=== PATIENT | female | born 1985 | race Caucasian/White ===

== ENCOUNTER 2017-06-12 09:29 | Emergency (ER) | payer OTHER ==
[2017-06-12] MEDS ORDERED: SODIUM CHLORIDE 0.9% 1,000 ML IV STA ×2 (10:03)
[2017-06-12] MEDS ORDERED: KETOROLAC 30 MG/ML 1 ML VIAL IVP STA (10:03)
[2017-06-12] MEDS ORDERED: ONDANSETRON 4 MG/2 ML VIAL IVP STA (10:03)
[2017-06-12 10:17] LABS: Basophils # (A) 0.1 k/uL (0-0.2); Basophils % (A) 0 %; Eosinophils # (A) 0.3 k/uL (0-0.7); Eosinophils % (A) 2 %; HCT 45.4 % (34.0-46.0); HGB 14.5 gm/dL (11.4-16.0); Lymphocytes # (A) 1.8 k/uL (1.0-4.8); Lymphocytes % (A) 12 %; MCH 30.2 pg (25.0-35.0); MCHC 31.9 g/dL (31.0-37.0); MCV 94.7 fL (80.0-100.0); Mean Platelet Volume 7.1; Monocytes # (A) 0.7 k/uL (0-1.0); Monocytes % (A) 5 %; Neutrophils # (A) 11.6 k/uL (1.3-7.7); Neutrophils % (A) 79 %; Platelet Count 312 k/uL (150-450); RDW 14.2 % (11.5-15.5); WBC 14.6 k/uL (3.8-10.6)
[2017-06-12 10:27] LABS: ALT 47 U/L (9-52); AST 20 U/L (14-36); Albumin 3.9 g/dL (3.5-5.0); Alkaline Phosphatase 77 U/L (38-126); Amylase 32 U/L (30-110); Anion Gap 9 mmol/L; Blood Urea Nitrogen 9 mg/dL (7-17); Calcium 9.5 mg/dL (8.4-10.2); Carbon Dioxide 23 mmol/L (22-30); Chloride 104 mmol/L (98-107); Glucose 99 mg/dL (74-99); Lipase 35 U/L (23-300); Potassium 3.8 mmol/L (3.5-5.1); Sodium 136 mmol/L (137-145); Total Bilirubin 1.1 mg/dL (0.2-1.3); Total Protein 6.8 g/dL (6.3-8.2)
[2017-06-12 10:35] LABS: Appearance,Urine Cloudy (Clear); Bacteria,Urine Rare /hpf; Bilirubin,Urine Negative (Negative); Blood,Urine Trace (Negative); Color,Urine Yellow; Glucose,Urine (UA) Negative (Negative); Ketones,Urine Trace (Negative); Leukocyte Esterase,Urine Moderate (Negative); Mucus,Urine Many /hpf; Nitrite,Urine Negative (Negative); Protein,Urine Trace (Negative); RBC,Urine 10 /hpf (0-5); Specific Gravity,Urine 1.019 (1.001-1.035); Squamous Epithelial Cell,Urine 17 /hpf (0-4); Urobilinogen,Urine <2.0 mg/dL (<2.0); WBC,Urine 11 /hpf (0-5)
--- NOTE | 2017-06-12 11:39 | XR ---
EXAMINATION TYPE: XR KUB DATE OF EXAM: 06/12/2017 COMPARISON: NONE HISTORY: Abdominal pain TECHNIQUE: 2 views FINDINGS: Bowel gas pattern is normal. There is no sign of intestinal obstruction or pneumoperitoneum . Fecal pattern is normal. There are clips from cholecystectomy. Lung bases are clear. There is IUD n oted. There no pathologic calcifications over the kidneys. IMPRESSION: Nonacute abdomen.
--- NOTE | 2017-06-12 12:52 | ED ---
Abdominal Pain HPI - General Chief Complaint: Abdominal Pain Stated Complaint: Pelvis/hip/back pain Time Seen by Provider: 06/12/17 09:49 Source: patient, RN notes reviewed, old records reviewed Mode of arrival: wheelchair Limitations: no limitations - History of Present Illness Initial Comments: This is a 32 year old female with 3 days of dysuria, pelvic pressure when urinating and having a bowel movement. She has an IUD, reports it is concerned that it could have moved. She denies any fever or chills. She reports that the pain is lower and radiates to lower back. Patient reports pain is worse with movement. She denies any abnormal vaginal discharge. She has history of PCOS. She states that she has had no vomiting, chest pain shortness of breath, vomiting. - Related Data Home Medications Medication Instructions Recorded Confirmed Ibuprofen [Motrin] 400 - 800 mg PO Q6HR PRN 06/12/17 06/12/17 Previous Rx's Medication Instructions Recorded Ciprofloxacin HCl [Cipro] 500 mg PO Q12HR 7 Days tab 06/12/17 Phenazopyridine [Pyridium] 100 mg PO TID #9 tablet 06/12/17 Allergies Allergy/AdvReac Type Severity Reaction Status Date / Time latex Allergy Rash/Hives Verified 06/12/17 09:56 sumatriptan succinate Allergy Anaphylaxis Verified 06/12/17 09:56 [From Imitrex] Review of Systems ROS Statement: Those systems with pertinent positive or pertinent negative responses have been documented in the HPI. ROS Other: All systems not noted in ROS Statement are negative. Past Medical History Past Medical History: Fibromyalgia, Osteoarthritis (OA), Thyroid Disorder Additional Past Medical History / Comment(s): MIGRAINE, pitted thyroid; Degenerative disc disease; ruptured disc, PCOS History of Any Multi-Drug Resistant Organisms: MRSA Date of last positivie culture/infection: 2012 MDRO Source:: LEFT BUTTOCK Past Surgical History: Appendectomy, Cholecystectomy Additional Past Surgical History / Comment(s): ankle-replace tendon when 14 yo. PAIN CLINIC PROCEDURES Past Anesthesia/Blood Transfusion Reactions: No Reported Reaction Past Psychological History: Anxiety, Bipolar, Depression Smoking Status: Current every day smoker Past Alcohol Use History: None Reported Past Drug Use History: None Reported General Exam - General Exam Comments Initial Comments: This is a 32 year old female, no distress. Limitations: no limitations General appearance: alert, in no apparent distress Head exam: Present: atraumatic, normocephalic, normal inspection Eye exam: Present: normal appearance, PERRL, EOMI. Absent: scleral icterus, conjunctival injection, periorbital swelling ENT exam: Present: normal exam, mucous membranes moist Neck exam: Present: normal inspection. Absent: tenderness, meningismus, lymphadenopathy Respiratory exam: Present: normal lung sounds bilaterally. Absent: respiratory distress, wheezes, rales, rhonchi, stridor Cardiovascular Exam: Present: regular rate, normal rhythm, normal heart sounds. Absent: systolic murmur, diastolic murmur, rubs, gallop, clicks GI/Abdominal exam: Present: soft, tenderness (suprapubic tenderness. ), normal bowel sounds. Absent: distended, guarding, rebound, rigid External exam: Present: normal external exam Speculum exam: Present: normal speculum exam, vaginal discharge (minimal white vaginal discharge. ), other (IUD strings in place. ). Absent: erythema Extremities exam: Present: normal inspection, full ROM, normal capillary refill. Absent: tenderness, pedal edema, joint swelling, calf tenderness Back exam: Present: normal inspection Neurological exam: Present: alert, oriented X3, CN II-XII intact Psychiatric exam: Present: normal affect, normal mood Skin exam: Present: warm, dry, intact, normal color. Absent: rash Course Vital Signs 06/12/17 06/12/17 06/12/17 09:32 12:38 13:00 Temperature 97.6 F 98.6 F Pulse Rate 101 H 77 80 Respiratory 20 16 20 Rate Blood Pressure 156/92 149/82 138/78 O2 Sat by Pulse 96 99 98 Oximetry Medical Decision Making - Medical Decision Making This is a 32 year old female with 3 days of dysuria, pelvic pressure when urinating and having a bowel movement. She has an IUD, reports it is concerned that it could have moved. She denies any fever or chills. She reports that the pain is lower and radiates to lower back. Patient lab work was reiveied, warrentent has elevated WBC. Urinalysis is postive for infection with WBC, RBC, leukocyte esterase. Patient Pelvic shows minimal white vaginal discharge, culture obtained. No cervical motion tenderness. Patient KUB shows normal bowel [place] pattern. IUD within normal placement. STrings identified. Patient will be started on ciprofloxacin. Discussed follow up with PCP and repeat labs.Discussed also starting pyridium for pain. Patient agrees to treatment plan and will comply. Return parameters discussed. - Lab Data Result diagrams: 06/12/17 10:00 06/12/17 10:00 Lab Results 06/12/17 06/12/17 06/12/17 Range/Units 10:00 10:00 10:00 WBC 14.6 H (3.8-10.6) k/uL RBC 4.80 (3.80-5.40) m/uL Hgb 14.5 (11.4-16.0) gm/dL Hct 45.4 (34.0-46.0) % MCV 94.7 (80.0-100.0) fL MCH 30.2 (25.0-35.0) pg MCHC 31.9 (31.0-37.0) g/dL RDW 14.2 (11.5-15.5) % Plt Count 312 (150-450) k/uL Neutrophils % 79 % Lymphocytes % 12 % Monocytes % 5 % Eosinophils % 2 % Basophils % 0 % Neutrophils # 11.6 H (1.3-7.7) k/uL Lymphocytes # 1.8 (1.0-4.8) k/uL Monocytes # 0.7 (0-1.0) k/uL Eosinophils # 0.3 (0-0.7) k/uL Basophils # 0.1 (0-0.2) k/uL Sodium 136 L (137-145) mmol/L Potassium 3.8 (3.5-5.1) mmol/L Chloride 104 (98-107) mmol/L Carbon Dioxide 23 (22-30) mmol/L Anion Gap 9 mmol/L BUN 9 (7-17) mg/dL Creatinine 0.70 (0.52-1.04) mg/dL Est GFR (MDRD) Af Amer >60 (>60 ml/min/1.73 sqM) Est GFR (MDRD) Non-Af >60 (>60 ml/min/1.73 sqM) Glucose 99 (74-99) mg/dL Calcium 9.5 (8.4-10.2) mg/dL Total Bilirubin 1.1 (0.2-1.3) mg/dL AST 20 (14-36) U/L ALT 47 (9-52) U/L Alkaline Phosphatase 77 (38-126) U/L Total Protein 6.8 (6.3-8.2) g/dL Albumin 3.9 (3.5-5.0) g/dL Amylase 32 (30-110) U/L Lipase 35 (23-300) U/L Urine Color Yellow Urine Appearance Cloudy H (Clear) Urine pH 6.0 (5.0-8.0) Ur Specific [place] 1.019 (1.001-1.035) Urine Protein Trace H (Negative) Urine Glucose (UA) Negative (Negative) Urine Ketones Trace H (Negative) Urine Blood Trace H (Negative) Urine Nitrite Negative (Negative) Urine Bilirubin Negative (Negative) Urine Urobilinogen <2.0 (<2.0) mg/dL Ur Leukocyte Esterase Moderate H (Negative) Urine RBC 10 H (0-5) /hpf Urine WBC 11 H (0-5) /hpf Ur Squamous Epith Cells 17 H (0-4) /hpf Urine Bacteria Rare H (None) /hpf Urine Mucus Many H (None) /hpf Urine HCG, Qual (Not Detectd) Trichomonas Ag (Rapid) (Negative) 06/12/17 06/12/17 Range/Units 10:00 13:00 WBC (3.8-10.6) k/uL RBC (3.80-5.40) m/uL Hgb (11.4-16.0) gm/dL Hct (34.0-46.0) % MCV (80.0-100.0) fL MCH (25.0-35.0) pg MCHC (31.0-37.0) g/dL RDW (11.5-15.5) % Plt Count (150-450) k/uL Neutrophils % % Lymphocytes % % Monocytes % % Eosinophils % % Basophils % % Neutrophils # (1.3-7.7) k/uL Lymphocytes # (1.0-4.8) k/uL Monocytes # (0-1.0) k/uL Eosinophils # (0-0.7) k/uL Basophils # (0-0.2) k/uL Sodium (137-145) mmol/L Potassium (3.5-5.1) mmol/L Chloride (98-107) mmol/L Carbon Dioxide (22-30) mmol/L Anion Gap mmol/L BUN (7-17) mg/dL Creatinine (0.52-1.04) mg/dL Est GFR (MDRD) Af Amer (>60 ml/min/1.73 sqM) Est GFR (MDRD) Non-Af (>60 ml/min/1.73 sqM) Glucose (74-99) mg/dL Calcium (8.4-10.2) mg/dL Total Bilirubin (0.2-1.3) mg/dL AST (14-36) U/L ALT (9-52) U/L Alkaline Phosphatase (38-126) U/L Total Protein (6.3-8.2) g/dL Albumin (3.5-5.0) g/dL Amylase (30-110) U/L Lipase (23-300) U/L Urine Color Urine Appearance (Clear) Urine pH (5.0-8.0) Ur Specific [place] (1.001-1.035) Urine Protein (Negative) Urine Glucose (UA) (Negative) Urine Ketones (Negative) Urine Blood (Negative) Urine Nitrite (Negative) Urine Bilirubin (Negative) Urine Urobilinogen (<2.0) mg/dL Ur Leukocyte Esterase (Negative) Urine RBC (0-5) /hpf Urine WBC (0-5) /hpf Ur Squamous Epith Cells (0-4) /hpf Urine Bacteria (None) /hpf Urine Mucus (None) /hpf Urine HCG, Qual Not Detected (Not Detectd) Trichomonas Ag (Rapid) Negative (Negative) Disposition Clinical Impression: UTI (urinary tract infection) Disposition: HOME SELF-CARE Condition: Good Instructions: Urinary Tract Infection in Women (ED) Additional Instructions: S rest, increase fluids. Take the Pyridium and antibiotic as prescribed. Follow-up with your primary care provider. Return to the emergency department if any alarming signs or symptoms occur. Prescriptions: Ciprofloxacin HCl [Cipro] 500 mg PO Q12HR 7 Days tab Phenazopyridine [Pyridium] 100 mg PO TID #9 tablet Referrals: Sen Harrell MD [Primary Care Provider] - 1-2 days Time of Disposition: 12:50
[2017-06-12 13:11] VITALS: BP 138/78; PULSE 80; RESP 20; TEMP 98.6
[2017-06-15 13:47] LABS: Chlamydia trachomatis rRNA Not detected (Not detected); Neisseria gonorrhoeae rRNA Not detected (Not detected)
== END 2017-06-12 13:00 | disposition home or self-care (01) ==
LOC: EC 09:29
DX: N39.0 Urinary tract infection, site not specified (principal); F17.200 Nicotine dependence, unspecified, uncomplicated; Z97.5 Presence of (intrauterine) contraceptive device; Z90.49 Acquired absence of other specified parts of digestive tract; Z86.14 Personal history of Methicillin resistant Staphylococcus aureus infection; Z87.42 Personal history of other diseases of the female genital tract
CPT/HCPCS: 99284 ×2; 96374 ×2; 96375 ×2; 96361 ×4; 36415; 80053; 87591; 87491; 82150; 83690; 85025; 81001; 81025; 87808; 87070; 87086; 74000; J2405; J1885; 87205

== ENCOUNTER 2017-12-31 17:44 | Emergency (ER) | payer OTHER ==
[2017-12-31 17:58] VITALS: TEMP 98.5
[2017-12-31] MEDS ORDERED: LORazepam 2 MG/ML INJ IV STA (18:12)
[2017-12-31 18:57] LABS: Basophils # (A) 0.1 k/uL (0-0.2); Basophils % (A) 1 %; Eosinophils # (A) 0.4 k/uL (0-0.7); Eosinophils % (A) 4 %; HCT 43.5 % (34.0-46.0); HGB 14.7 gm/dL (11.4-16.0); Lymphocytes # (A) 2.9 k/uL (1.0-4.8); Lymphocytes % (A) 31 %; MCH 29.4 pg (25.0-35.0); MCHC 33.9 g/dL (31.0-37.0); MCV 86.8 fL (80.0-100.0); Mean Platelet Volume 6.9; Monocytes # (A) 0.6 k/uL (0-1.0); Monocytes % (A) 6 %; Neutrophils # (A) 5.1 k/uL (1.3-7.7); Neutrophils % (A) 56 %; Platelet Count 315 k/uL (150-450); RBC 5.01 m/uL (3.80-5.40); RDW 13.4 % (11.5-15.5); WBC 9.2 k/uL (3.8-10.6)
[2017-12-31 19:06] LABS: ALT 37 U/L (9-52); AST 44 U/L (14-36); Albumin 4.3 g/dL (3.5-5.0); Alkaline Phosphatase 61 U/L (38-126); Anion Gap 9 mmol/L; Blood Urea Nitrogen 10 mg/dL (7-17); Calcium 9.5 mg/dL (8.4-10.2); Carbon Dioxide 21 mmol/L (22-30); Chloride 107 mmol/L (98-107); Glucose 82 mg/dL (74-99); Potassium 3.6 mmol/L (3.5-5.1); Sodium 137 mmol/L (137-145); Total Bilirubin 0.6 mg/dL (0.2-1.3); Total Protein 6.8 g/dL (6.3-8.2)
--- NOTE | 2017-12-31 19:08 | ED ---
General Adult HPI - General Chief complaint: Recheck/Abnormal Lab/Rx Stated complaint: withdrawals Time Seen by Provider: 12/31/17 17:59 Source: patient Mode of arrival: ambulatory Limitations: no limitations - History of Present Illness Initial comments: 32-year-old female patient presents the emergency department today with chief complaint of withdrawal from methamphetamines. Patient reports that she has been using meth multiple times daily for the last several months. Patient states she has not used since around 5:00 this morning. States that she is having which symptoms. States that her vision is double, she is having chest pressure and shortness of breath, and feels very antsy. Patient is quite anxious during history and physical. Patient states she has uses marijuana but denies any alcohol or other drug use. The patient is requesting assistance with withdrawal symptoms. Patient denies any recent rash, fever, chills, abdominal pain, nausea, vomiting, diarrhea, constipation, back pain, numbness, tingling, dizziness, weakness, hematuria, dysuria, urinary urgency, urinary frequency, headache, or any other complaints. - Related Data Home Medications Medication Instructions Recorded Confirmed Ibuprofen [Motrin] 400 - 800 mg PO Q6HR PRN 06/12/17 06/12/17 Previous Rx's Medication Instructions Recorded Ciprofloxacin HCl [Cipro] 500 mg PO Q12HR 7 Days tab 06/12/17 Phenazopyridine [Pyridium] 100 mg PO TID #9 tablet 06/12/17 Allergies Allergy/AdvReac Type Severity Reaction Status Date / Time latex Allergy Rash/Hives Verified 12/31/17 17:58 sumatriptan succinate Allergy Anaphylaxis Verified 12/31/17 17:58 [From Imitrex] Review of Systems ROS Statement: Those systems with pertinent positive or pertinent negative responses have been documented in the HPI. ROS Other: All systems not noted in ROS Statement are negative. Past Medical History Past Medical History: CVA/TIA, Fibromyalgia, Osteoarthritis (OA), Thyroid Disorder Additional Past Medical History / Comment(s): MIGRAINE, pitted thyroid; Degenerative disc disease; ruptured disc, PCOS. methamphetamine abuse History of Any Multi-Drug Resistant Organisms: MRSA Date of last positivie culture/infection: 2012 MDRO Source:: LEFT BUTTOCK Past Surgical History: Appendectomy, Cholecystectomy Additional Past Surgical History / Comment(s): ankle-replace tendon when 14 yo. PAIN CLINIC PROCEDURES Past Anesthesia/Blood Transfusion Reactions: No Reported Reaction Past Psychological History: Anxiety, Bipolar, Depression Smoking Status: Current every day smoker Past Alcohol Use History: None Reported Past Drug Use History: Marijuana, Methamphetamine General Exam Limitations: no limitations General appearance: alert, in no apparent distress, anxious, other (This is a well-developed, well-nourished adult female patient in no acute distress. Vital signs upon presentation are temperature 98.5F, pulse 98, respirations 20 , blood pressure 147/97, pulse ox 99% on room air.) Eye exam: Present: normal appearance, PERRL, EOMI. Absent: scleral icterus, conjunctival injection, periorbital swelling ENT exam: Present: normal exam, normal oropharynx, mucous membranes moist Respiratory exam: Present: normal lung sounds bilaterally, other ( Hyperventilating). Absent: respiratory distress, wheezes, rales, rhonchi, stridor Cardiovascular Exam: Present: regular rate, normal rhythm, normal heart sounds. Absent: systolic murmur, diastolic murmur, rubs, gallop, clicks GI/Abdominal exam: Present: soft, normal bowel sounds. Absent: distended, tenderness, guarding, rebound, rigid Neurological exam: Present: alert, oriented X3, CN II-XII intact Psychiatric exam: Present: normal affect, normal mood Skin exam: Present: warm, dry, intact, normal color. Absent: rash Course Vital Signs 12/31/17 12/31/17 12/31/17 17:55 18:50 19:20 Temperature 98.5 F Pulse Rate 98 116 H 90 Respiratory 20 20 18 Rate Blood Pressure 147/97 124/84 107/65 O2 Sat by Pulse 99 99 97 Oximetry EKG Findings - EKG Comments: EKG Findings:: EKG obtained at 1850 shows normal sinus rhythm with a ventricular rate of 82, NE interval 190, QRS duration 82, QT 390, QTc 455. No evidence of ST elevation or depression. Medical Decision Making - Medical Decision Making 32-year-old female patient presented to the emergency department today for evaluation of withdrawal from methamphetamines. Physical examination is unremarkable. Labs reviewed and were unremarkable. Patient is feeling somewhat better after administration of Ativan. She is instructed to follow-up outpatient for rehabilitation services. She was given a list of outpatient referrals. She is instructed follow up with her primary care physician for recheck in 1-2 days. Return parameters discussed in detail. They verbalize understanding and agree with this plan. - Lab Data Result diagrams: 12/31/17 18:42 12/31/17 18:42 Lab Results 12/31/17 12/31/17 12/31/17 Range/Units 18:42 18:42 18:42 WBC 9.2 (3.8-10.6) k/uL RBC 5.01 (3.80-5.40) m/uL Hgb 14.7 (11.4-16.0) gm/dL Hct 43.5 (34.0-46.0) % MCV 86.8 (80.0-100.0) fL MCH 29.4 (25.0-35.0) pg MCHC 33.9 (31.0-37.0) g/dL RDW 13.4 (11.5-15.5) % Plt Count 315 (150-450) k/uL Neutrophils % 56 % Lymphocytes % 31 % Monocytes % 6 % Eosinophils % 4 % Basophils % 1 % Neutrophils # 5.1 (1.3-7.7) k/uL Lymphocytes # 2.9 (1.0-4.8) k/uL Monocytes # 0.6 (0-1.0) k/uL Eosinophils # 0.4 (0-0.7) k/uL Basophils # 0.1 (0-0.2) k/uL Sodium 137 (137-145) mmol/L Potassium 3.6 (3.5-5.1) mmol/L Chloride 107 (98-107) mmol/L Carbon Dioxide 21 L (22-30) mmol/L Anion Gap 9 mmol/L BUN 10 (7-17) mg/dL Creatinine 0.71 (0.52-1.04) mg/dL Est GFR (CKD-EPI)AfAm >90 (>60 ml/min/1.73 sqM) Est GFR (CKD-EPI)NonAf >90 (>60 ml/min/1.73 sqM) Glucose 82 (74-99) mg/dL Calcium 9.5 (8.4-10.2) mg/dL Total Bilirubin 0.6 (0.2-1.3) mg/dL AST 44 H (14-36) U/L ALT 37 (9-52) U/L Alkaline Phosphatase 61 (38-126) U/L Total Creatine Kinase 710 H (30-135) U/L CK-MB (CK-2) 10.5 H* (0.0-2.4) ng/mL CK-MB (CK-2) Rel Index 1.5 Troponin I <0.012 (0.000-0.034) ng/mL Total Protein 6.8 (6.3-8.2) g/dL Albumin 4.3 (3.5-5.0) g/dL - Radiology Data Radiology results: report reviewed, image reviewed Two-view x-ray of the chest is obtained. Scalp was a partially obscuring upper lung núñez. No pneumothorax or additional focal airspace opacity, pleural effusion, or vascular decompensation. The cardiac silhouette size is within normal limits. The osseous structures are intact. Impression by Dr. Crawford shows no acute parenchymal infiltrate or vascular decompensation. Limitation by the superimposition of the scapula on the upper lung núñez. Disposition Clinical Impression: Methamphetamine dependence Disposition: HOME SELF-CARE Condition: Good Instructions: Methamphetamine Abuse (ED) Additional Instructions: Rest. Increase fluids. Follow-up through primary care physician for recheck as soon as possible. Utilize outpatient referral list to obtain rehabilitation treatment. Return here immediately for any new, worsening, or concerning symptoms. Is patient prescribed a controlled substance at d/c from ED?: No Referrals: Sen Harrell MD [Primary Care Provider] - 1-2 days Time of Disposition: 20:10
[2017-12-31 19:16] LABS: Creatine Kinase 710 U/L (30-135)
[2017-12-31 19:21] VITALS: RESP 18
[2017-12-31 19:29] LABS: Troponin I <0.012 ng/mL (0.000-0.034)
[2017-12-31 19:55] LABS: Creatine Kinase MB 10.5 ng/mL (0.0-2.4)
--- NOTE | 2017-12-31 20:06 | XR ---
EXAMINATION TYPE: XR chest 2V DATE OF EXAM: 12/31/2017 COMPARISON: NONE HISTORY: Difficulty breathing. TECHNIQUE: Frontal and lateral views of the chest are obtained. FINDINGS: Scapulas are partially obscuring the upper lung núñez. No pneumothorax. There is no focal air space opacity, pleural effusion, or vascular decompensation. The cardiac silhouette size is within normal limits. The osseous structures are intact. IMPRESSION: No acute parenchymal infiltrate or vascular decompensation. Limitation by the superimposition of the scapula the upper lung núñez.
[2017-12-31 20:19] VITALS: BP 104/56; PULSE 78
== END 2017-12-31 20:19 | disposition home or self-care (01) ==
LOC: EC 17:44
DX: F15.20 Other stimulant dependence, uncomplicated (principal); R06.4 Hyperventilation; F12.90 Cannabis use, unspecified, uncomplicated; H53.2 Diplopia; F17.200 Nicotine dependence, unspecified, uncomplicated; Z88.8 Allergy status to other drugs, medicaments and biological substances; Z91.040 Latex allergy status; Z86.14 Personal history of Methicillin resistant Staphylococcus aureus infection
CPT/HCPCS: 36415; 93005; 80053; 82550; 82553; 84484; 85025; 71046; 99284; 96374; J2060

== ENCOUNTER 2018-01-03 13:34 | Emergency (ER) | payer SELFPAY ==
[2018-01-03 14:22] LABS: Urn Cannabinoid Scrn Detected (NotDetected)
[2018-01-03 14:23] LABS: Amphetamine Screen,Urine Detected (NotDetected); Barbiturate Screen,Urine Not Detected (NotDetected); Benzodiazepines Screen,Urine Detected (NotDetected); Cocaine Screen,Urine Not Detected (NotDetected); Methadone Screen, Urine Not Detected (NotDetected); Opiate Screen,Urine Not Detected (NotDetected); Oxycodone Screen, Urine Not Detected (NotDetected); Phencyclidine Screen,Urine Not Detected (NotDetected); Tricyclic Antidepressant,Urine Not Detected (NotDetected)
--- NOTE | 2018-01-03 14:44 | ED ---
Psych HPI - General Source: patient, RN notes reviewed Mode of arrival: ambulatory <Ken Garcia - Last Filed: 01/03/18 15:40> <Heladio Blanco - Last Filed: 01/03/18 15:47> - General Chief Complaint: Psychiatric Symptoms Stated Complaint: Mental Health Time Seen by Provider: 01/03/18 13:52 - History of Present Illness Initial Comments: 32-year-old female presented emergency from chief complaint of depression, suicidal ideation. Patient states that she is withdrawing from methamphetamines use last 4 days ago. She was seen here days ago for some her symptoms. Patient states that she's had some intermittent thoughts of suicide states that she was given her wrist but has not self harm herself. Patient has been admitted in the past for psychiatric issues and states that she used to be on medication for bipolar disorder but currently not taking any meds. Patient denies any physical complaints other than withdrawal symptoms. Patient denies any homicidal ideation. (Ken Garica) - Related Data Home Medications Medication Instructions Recorded Confirmed No Known Home Medications 01/03/18 01/03/18 Allergies Allergy/AdvReac Type Severity Reaction Status Date / Time latex Allergy Rash/Hives Verified 01/03/18 14:32 sumatriptan succinate Allergy Anaphylaxis Verified 01/03/18 14:32 [From Imitrex] Review of Systems ROS Other: All systems not noted in ROS Statement are negative. <Ken Garcia - Last Filed: 01/03/18 15:40> ROS Other: All systems not noted in ROS Statement are negative. <Heladio Blanco - Last Filed: 01/03/18 15:47> ROS Statement: Those systems with pertinent positive or pertinent negative responses have been documented in the HPI. Past Medical History Past Medical History: CVA/TIA, Fibromyalgia, Osteoarthritis (OA), Thyroid Disorder Additional Past Medical History / Comment(s): MIGRAINE, pitted thyroid; Degenerative disc disease; ruptured disc, PCOS. methamphetamine abuse History of Any Multi-Drug Resistant Organisms: MRSA Date of last positivie culture/infection: 2012 MDRO Source:: LEFT BUTTOCK Past Surgical History: Appendectomy, Cholecystectomy Additional Past Surgical History / Comment(s): ankle-replace tendon when 14 yo. PAIN CLINIC PROCEDURES Past Anesthesia/Blood Transfusion Reactions: No Reported Reaction Past Psychological History: Anxiety, Bipolar, Depression Smoking Status: Current every day smoker Past Alcohol Use History: None Reported Past Drug Use History: Marijuana, Methamphetamine <Ken Garcia - Last Filed: 01/03/18 15:40> General Exam Limitations: no limitations General appearance: alert, in no apparent distress Head exam: Present: atraumatic, normocephalic, normal inspection Eye exam: Present: normal appearance, PERRL, EOMI. Absent: scleral icterus, conjunctival injection, periorbital swelling ENT exam: Present: normal exam, normal oropharynx, mucous membranes moist Neck exam: Present: normal inspection, full ROM. Absent: tenderness, meningismus, lymphadenopathy Respiratory exam: Present: normal lung sounds bilaterally. Absent: respiratory distress, wheezes, rales, rhonchi, stridor Cardiovascular Exam: Present: regular rate, normal rhythm, normal heart sounds. Absent: systolic murmur, diastolic murmur, rubs, gallop, clicks GI/Abdominal exam: Present: soft, normal bowel sounds. Absent: distended, tenderness, guarding, rebound, rigid Neurological exam: Present: alert, oriented X3, CN II-XII intact Psychiatric exam: Present: depressed Skin exam: Present: warm, dry, intact, normal color. Absent: rash <Ken Garcia - Last Filed: 01/03/18 15:40> Vital Signs 01/03/18 13:38 Temperature 98.2 F Pulse Rate 84 Respiratory 18 Rate Blood Pressure 169/108 O2 Sat by Pulse 100 Oximetry Medical Decision Making <Ken Garcia - Last Filed: 01/03/18 15:40> <Heladio Blanco - Last Filed: 01/03/18 15:47> - Medical Decision Making 32-year-old female presented for psychiatric evaluation. Patient was evaluated by [facility] and they recommend inpatient treatment. Patient will be transferred for care. Patient was medically cleared. The patient had petition and clinical cert (Ken Garcia) Patient evaluated, she is complaining of depression and suicidal ideation. It is recommended that the patient be transferred for further evaluation treatment of both suicidal ideation, depression, and substance abuse. I was able to complete a clinical certification. Patient is agreeable with plan. (Heladio Blanco) - Lab Data Lab Results 01/03/18 Range/Units 13:45 Urine Opiates Screen Not Detected (NotDetected) Ur Oxycodone Screen Not Detected (NotDetected) Urine Methadone Screen Not Detected (NotDetected) Ur Propoxyphene Screen Not Detected (NotDetected) Ur Barbiturates Screen Not Detected (NotDetected) U Tricyclic Antidepress Not Detected (NotDetected) Ur Phencyclidine Scrn Not Detected (NotDetected) Ur Amphetamines Screen Detected H (NotDetected) U Methamphetamines Scrn Detected H (NotDetected) U Benzodiazepines Scrn Detected H (NotDetected) Urine Cocaine Screen Not Detected (NotDetected) U Marijuana (THC) Screen Detected H (NotDetected) Disposition <Ken Garcia M - Last Filed: 01/03/18 15:40> <Heladio Blanco - Last Filed: 01/03/18 15:47> Clinical Impression: Depression, Suicidal ideation, Methamphetamine dependence Disposition: TRANSFER TO PSYCH HOSP/UNIT Condition: Stable Referrals: Sen Harrell MD [Primary Care Provider] - 1-2 days
[2018-01-03] MEDS ORDERED: LORazepam 1 MG TAB PO STA ×2 (15:40→20:57)
[2018-01-03 16:46] LABS: Basophils # (A) 0.1 k/uL (0-0.2); Basophils % (A) 1 %; Eosinophils # (A) 0.4 k/uL (0-0.7); Eosinophils % (A) 4 %; HCT 43.4 % (34.0-46.0); HGB 13.9 gm/dL (11.4-16.0); Lymphocytes # (A) 2.4 k/uL (1.0-4.8); Lymphocytes % (A) 24 %; MCH 28.2 pg (25.0-35.0); MCV 88.2 fL (80.0-100.0); Mean Platelet Volume 6.8; Monocytes # (A) 0.4 k/uL (0-1.0); Monocytes % (A) 5 %; Neutrophils # (A) 6.5 k/uL (1.3-7.7); Neutrophils % (A) 66 %; Platelet Count 354 k/uL (150-450); RBC 4.92 m/uL (3.80-5.40); RDW 13.4 % (11.5-15.5); WBC 9.9 k/uL (3.8-10.6)
[2018-01-03 17:00] LABS: ALT 28 U/L (9-52); AST 17 U/L (14-36); Albumin 3.8 g/dL (3.5-5.0); Alkaline Phosphatase 51 U/L (38-126); Anion Gap 7 mmol/L; Blood Urea Nitrogen 10 mg/dL (7-17); Calcium 9.3 mg/dL (8.4-10.2); Carbon Dioxide 26 mmol/L (22-30); Chloride 106 mmol/L (98-107); Glucose 90 mg/dL (74-99); Potassium 4.1 mmol/L (3.5-5.1); Sodium 139 mmol/L (137-145); Total Bilirubin <0.1 mg/dL (0.2-1.3); Total Protein 6.3 g/dL (6.3-8.2)
[2018-01-03 19:11] LABS: Appearance,Urine Clear (Clear); Bilirubin,Urine Negative (Negative); Blood,Urine Negative (Negative); Color,Urine Light Yellow; Glucose,Urine (UA) Negative (Negative); Ketones,Urine Negative (Negative); Leukocyte Esterase,Urine Large (Negative); Mucus,Urine Rare /hpf; Nitrite,Urine Negative (Negative); PH, Urine 6.5 (5.0-8.0); Protein,Urine Negative (Negative); RBC,Urine 3 /hpf (0-5); Specific Gravity,Urine 1.012 (1.001-1.035); Squamous Epithelial Cell,Urine 2 /hpf (0-4); Urobilinogen,Urine <2.0 mg/dL (<2.0); WBC,Urine 6 /hpf (0-5)
[2018-01-03] MEDS ORDERED: NICOTINE 21MG/24HR PATCH TRANSDERM STA (19:13)
[2018-01-04 02:29] VITALS: BP 141/86; PULSE 68; RESP 20; TEMP 97.7
== END 2018-01-03 22:29 ==
LOC: EC 13:34
DX: F32.9 Major depressive disorder, single episode, unspecified (principal); R45.851 Suicidal ideations; F15.20 Other stimulant dependence, uncomplicated; F41.9 Anxiety disorder, unspecified; F17.200 Nicotine dependence, unspecified, uncomplicated; Z86.73 Personal history of transient ischemic attack (TIA), and cerebral infarction without residual deficits; Z86.14 Personal history of Methicillin resistant Staphylococcus aureus infection; Z91.040 Latex allergy status; Z88.8 Allergy status to other drugs, medicaments and biological substances
CPT/HCPCS: 82075; 36415; 80053; 84443; 85025; 81001; 81025; 80306; 99285; S4990

== ENCOUNTER 2018-01-17 20:39 | Observation (INO) | payer OTHER ==
[2018-01-17] MEDS ORDERED: ASPIRIN 81 MG PO STA (21:52)
[2018-01-17] MEDS ORDERED: NITROGLYCERIN OINT 1 INCH/GM PACKET TOPICAL STA (21:52)
[2018-01-17] MEDS ORDERED: ONDANSETRON 4 MG/2 ML VIAL IVP STA (21:52)
[2018-01-17] MEDS ORDERED: SODIUM CHLORIDE 0.9% 1,000 ML IV STA (21:52)
[2018-01-17] MEDS ORDERED: MORPHINE SULFATE 2 MG/ML SYRINGE IVP STA (21:52)
[2018-01-17] MEDS ORDERED: cefTRIAXone 2,000 MG in SODIUM CHLORIDE 0.9% 100 ML IVPB STA (21:57)
[2018-01-17 22:20] LABS: Basophils # (A) 0.1 k/uL (0-0.2); Basophils % (A) 1 %; Eosinophils # (A) 0.4 k/uL (0-0.7); Eosinophils % (A) 4 %; HGB 12.7 gm/dL (11.4-16.0); Lymphocytes # (A) 2.9 k/uL (1.0-4.8); Lymphocytes % (A) 28 %; MCH 28.5 pg (25.0-35.0); MCHC 32.5 g/dL (31.0-37.0); MCV 87.7 fL (80.0-100.0); Mean Platelet Volume 6.7; Monocytes # (A) 0.6 k/uL (0-1.0); Monocytes % (A) 6 %; Neutrophils # (A) 6.1 k/uL (1.3-7.7); Neutrophils % (A) 60 %; Platelet Count 277 k/uL (150-450); RBC 4.45 m/uL (3.80-5.40); RDW 13.9 % (11.5-15.5); WBC 10.2 k/uL (3.8-10.6)
[2018-01-17 22:48] LABS: ALT 56 U/L (9-52); AST 30 U/L (14-36); Albumin 3.8 g/dL (3.5-5.0); Alkaline Phosphatase 42 U/L (38-126); Anion Gap 8 mmol/L; Blood Urea Nitrogen 15 mg/dL (7-17); Calcium 9.2 mg/dL (8.4-10.2); Carbon Dioxide 24 mmol/L (22-30); Chloride 105 mmol/L (98-107); Glucose 94 mg/dL (74-99); Magnesium 1.9 mg/dL (1.6-2.3); Sodium 137 mmol/L (137-145); Total Bilirubin 0.3 mg/dL (0.2-1.3); Total Protein 6.4 g/dL (6.3-8.2)
[2018-01-17 22:49] LABS: Potassium 4.6 mmol/L (3.5-5.1)
[2018-01-17 22:51] LABS: Prothrombin Time 9.7 sec (9.0-12.0)
[2018-01-17 22:52] LABS: Creatine Kinase 74 U/L (30-135)
[2018-01-17 23:02] LABS: D-Dimer 0.77 mg/L FEU (<0.60); Partial Thromboplastin Time 21.6 sec (22.0-30.0)
--- NOTE | 2018-01-17 23:02 | XR ---
EXAMINATION TYPE: XR chest 2V DATE OF EXAM: 01/17/2018 COMPARISON: 12/31/2017 HISTORY: Chest pain TECHNIQUE: Frontal and lateral views of the chest are obtained. FINDINGS: Heart and mediastinum are normal. Lungs are clear. Diaphragm is normal. Bony thorax appear s normal. IMPRESSION: Normal chest. No change.
[2018-01-17 23:05] LABS: Creatine Kinase MB 0.7 ng/mL (0.0-2.4); Troponin I <0.012 ng/mL (0.000-0.034)
--- NOTE | 2018-01-17 23:38 | CT ---
EXAMINATION TYPE: CT chest angio for PE DATE OF EXAM: 01/17/2018 COMPARISON: None HISTORY: chest pain;elevated D-dimer CT DLP: 410.80 mGycm Automated exposure control for dose reduction was used. CONTRAST: CT Chest for pulmonary embolism performed with with IV Contrast, patient injected with 100 mL of Isov ue 370. FINDINGS: There are 3-D post processed images. The lungs are clear of infiltrate. There is no evidence of pleural effusion or pneumothorax. Heart si ze is normal. There is no pericardial effusion. There is no mediastinal adenopathy. There are no hilar masses. Ther e is normal contrast opacification of the pulmonary arteries. I see no filling defect. Thoracic aorta appears normal without evidence of aneurysm or dissection. The bony thorax is intact. IMPRESSION: Negative exam. No evidence of pulmonary embolism.
--- NOTE | 2018-01-18 00:31 | ED ---
Chest Pain HPI - General Chief Complaint: Chest Pain Stated Complaint: chest pain Time Seen by Provider: 01/17/18 21:33 Source: EMS Mode of arrival: EMS Limitations: no limitations - History of Present Illness Initial Comments: 82 years old female with a history of CVA and TIA also has a history of heart disease comes in with a chest pain since 2 PM now she still has chest pain she is complaining about swelling of the ankles and now chest pain been worse with deep breaths she does have an IUD in place and a smoker. Denies any abdominal pain no frequency urgency dysuria - Related Data Home Medications Medication Instructions Recorded Confirmed ARIPiprazole [Abilify] 5 mg PO DAILY@0600 01/17/18 01/17/18 Acetaminophen [Tylenol] 650 mg PO Q4H PRN 01/17/18 01/17/18 Calcium/Magnesium 2 tab PO TID 01/17/18 01/17/18 Chlorpheniramine Maleate 4 mg PO Q4H PRN 01/17/18 01/17/18 [Chlor-Trimeton] Folic Acid 1 mg PO DAILY@0600 01/17/18 01/17/18 Ibuprofen [Motrin] 600 mg PO Q6HR PRN 01/17/18 01/17/18 Multivitamins, Thera [Multivitamin 1 tab PO DAILY@0600 01/17/18 01/17/18 (formulary)] Thiamine [Vitamin B-1] 100 mg PO DAILY 01/17/18 01/17/18 buPROPion XL [Wellbutrin Xl] 150 mg PO DAILY@0600 01/17/18 01/17/18 busPIRone HCl [Buspar] 10 mg PO TID PRN 01/17/18 01/17/18 cloNIDine HCL [Catapres] 0.1 mg PO TID@06,1530,22 01/17/18 01/17/18 traZODone HCL 50 - 150 mg PO HS 01/17/18 01/17/18 Allergies Allergy/AdvReac Type Severity Reaction Status Date / Time latex Allergy Rash/Hives Verified 01/17/18 21:18 sumatriptan succinate Allergy Anaphylaxis Verified 01/17/18 21:18 [From Imitrex] Review of Systems ROS Statement: Those systems with pertinent positive or pertinent negative responses have been documented in the HPI. ROS Other: All systems not noted in ROS Statement are negative. Past Medical History Past Medical History: CVA/TIA, Fibromyalgia, Osteoarthritis (OA), Thyroid Disorder Additional Past Medical History / Comment(s): MIGRAINE, pitted thyroid; Degenerative disc disease; ruptured disc, PCOS. methamphetamine abuse History of Any Multi-Drug Resistant Organisms: MRSA Date of last positivie culture/infection: 2012 MDRO Source:: LEFT BUTTOCK Past Surgical History: Appendectomy, Cholecystectomy Additional Past Surgical History / Comment(s): ankle-replace tendon when 14 yo. PAIN CLINIC PROCEDURES Past Anesthesia/Blood Transfusion Reactions: No Reported Reaction Past Psychological History: Anxiety, Bipolar, Depression Smoking Status: Current every day smoker Past Alcohol Use History: None Reported Past Drug Use History: Marijuana, Methamphetamine General Exam - General Exam Comments Initial Comments: General: The patient is awake and alert, in no distress, and does not appear acutely ill. Skin: Skin is warm and dry and no rashes or lesions are noted. Eye: Pupils are equal, round and reactive to light, extra-ocular movements are intact; there is normal conjunctiva bilaterally. Ears, nose, mouth and throat: There are moist mucous membranes and no oral lesions. Neck: The neck is supple, there is no tenderness or JVD. Cardiovascular: There is a regular rate and rhythm. No murmur, rub or gallop is appreciated. Respiratory: To auscultation bilateral, no wheezing no rhonchi no distress respiratory rodríguez noticed Gastrointestinal: Soft, non-distended, non-tender abdomen without masses or organomegaly noted. There is no rebound or guarding present. Bowel sounds are unremarkable. Back: There is no tenderness to palpation in the midline. There is no obvious deformity. Musculoskeletal: Normal ROM, no tenderness, There is no pedal edema. There is no calf tenderness or swelling. No cords were appreciated. Neurological: CN II-XII intact, Cranial nerves III through XII are intact. There are no obvious motor or sensory deficits. Coordination appears grossly intact. Speech is normal. Psychiatric: Cooperative, appropriate mood & affect, normal judgment. Limitations: no limitations Course Vital Signs 01/17/18 01/17/18 01/17/18 21:01 21:02 23:02 Temperature 97.7 F Pulse Rate 74 74 Respiratory 18 20 Rate Blood Pressure 135/84 143/83 O2 Sat by Pulse 97 96 Oximetry EKG is a normal sinus ventricular rate is 76 SC interval is 170 QRS duration is 82 QT/QTc is 4/63 review cc EKG does not reveal any ST elevation or ST depression Upon reassessment I noticed d-dimer is elevated CT head was done CT ruled out any pulmonary embolism, CBC, troponin, EKG, comp his metabolic panel, chest x- ray are unremarkable considering her history of CVA and she still smokes [facility] her for observation for 3 sets of cardiac markers and cardiology consult Disposition Clinical Impression: Chest pain Disposition: ADMITTED IP TO THIS HOSP Condition: Good Referrals: Sen Harrell MD [Primary Care Provider] - 1-2 days
[2018-01-18] MEDS ORDERED: MORPHINE SULFATE 2 MG/ML SYRINGE IVP PRN (00:32)
[2018-01-18] MEDS ORDERED: NITROGLYCERIN SL TABS 0.4 MG TAB SUBLINGUAL PRN (00:32)
[2018-01-18] MEDS ORDERED: LORATADINE 10 MG TAB PO PRN (00:38)
[2018-01-18] MEDS ORDERED: busPIRone HCl 10 MG TAB PO PRN (00:38)
[2018-01-18] MEDS ORDERED: IBUPROFEN 600 MG TAB PO PRN (00:38)
[2018-01-18] MEDS ORDERED: ACETAMINOPHEN TAB 325 MG TAB PO PRN (00:38)
[2018-01-18 04:54] LABS: Creatine Kinase 58 U/L (30-135)
[2018-01-18 05:06] LABS: Creatine Kinase MB 0.8 ng/mL (0.0-2.4); Troponin I <0.012 ng/mL (0.000-0.034)
[2018-01-18] MEDS ORDERED: MULTIVITAMINS, THERA 1 EACH TAB PO SCH (06:00)
[2018-01-18] MEDS ORDERED: ARIPiprazole 5 MG TAB PO SCH (06:00)
[2018-01-18] MEDS ORDERED: FOLIC ACID 1 MG TAB PO SCH (06:00)
[2018-01-18] MEDS ORDERED: buPROPion XL 150 MG TAB.ER.24H PO SCH (06:00)
[2018-01-18] MEDS ORDERED: cloNIDine HCL 0.1 MG TAB PO SCH (06:00)
[2018-01-18 07:34] VITALS: TEMP 97.5
--- NOTE | 2018-01-18 08:29 | P.CRDCN ---
History of Present Illness Consult date: 01/18/18 Chief complaint: Chest pain History of present illness: This is a pleasant 32-year-old female patient with a past medical history significant for TIA as well as significant history of smoking presented to the hospital complaining of chest discomfort. The patient was in her usual state of health when she was in rehab for what it seems to be drug abuse when she started experiencing chest discomfort. She was sitting at the rehab class yesterday when the discomfort started. It was sharp kind of discomfort at the mid of the chest worse with deep breaths. It radiated to her right arm as well. No shortness of breath, dizziness or lightheadedness, nausea or vomiting , or syncope. The discomfort lasted for few hours and she decided to come to the emergency room. She underwent a computed tomography scan of the chest and that showed no PE. The cardiac enzymes were checked and came in to be unremarkable. The EKG showed sinus rhythm without any significant ST or T-wave abnormalities. The chest x-ray did not show any acute abnormalities as well. The patient continues to be pain-free. Interim off past medical history the patient does have history of hypertension and history of TIA at young age. No diabetes. No dyslipidemia. No established coronary artery disease. She underwent multiple noncardiac surgeries in the past. Unfortunately she continues to smoke and she also has history of drug abuse. She does not have any significant family history of coronary artery disease. Past Medical History Past Medical History: CVA/TIA, Fibromyalgia, Osteoarthritis (OA), Thyroid Disorder Additional Past Medical History / Comment(s): MIGRAINE, pitted thyroid; Degenerative disc disease; ruptured disc, PCOS. methamphetamine abuse History of Any Multi-Drug Resistant Organisms: MRSA Date of last positivie culture/infection: 2012 MDRO Source:: LEFT BUTTOCK Past Surgical History: Appendectomy, Cholecystectomy Additional Past Surgical History / Comment(s): ankle-replace tendon when 14 yo. PAIN CLINIC PROCEDURES Past Anesthesia/Blood Transfusion Reactions: No Reported Reaction Past Psychological History: Anxiety, Bipolar, Depression Smoking Status: Current every day smoker Past Alcohol Use History: None Reported Past Drug Use History: Marijuana, Methamphetamine Medications and Allergies Home Medications Medication Instructions Recorded Confirmed Type ARIPiprazole [Abilify] 5 mg PO DAILY@0600 01/17/18 01/17/18 History Acetaminophen [Tylenol] 650 mg PO Q4H PRN 01/17/18 01/17/18 History Calcium/Magnesium 2 tab PO TID 01/17/18 01/17/18 History Chlorpheniramine Maleate 4 mg PO Q4H PRN 01/17/18 01/17/18 History [Chlor-Trimeton] Folic Acid 1 mg PO DAILY@0600 01/17/18 01/17/18 History Ibuprofen [Motrin] 600 mg PO Q6HR PRN 01/17/18 01/17/18 History Multivitamins, Thera [Multivitamin 1 tab PO DAILY@0601/17/18 01/17/18 History (formulary)] Thiamine [Vitamin B-1] 100 mg PO DAILY 01/17/18 01/17/18 History buPROPion XL [Wellbutrin Xl] 150 mg PO DAILY@0600 01/17/18 01/17/18 History busPIRone HCl [Buspar] 10 mg PO TID PRN 01/17/18 01/17/18 History cloNIDine HCL [Catapres] 0.1 mg PO TID@06,1530,22 01/17/18 01/17/18 History traZODone HCL 50 - 150 mg PO HS 01/17/18 01/17/18 History Allergies Allergy/AdvReac Type Severity Reaction Status Date / Time latex Allergy Rash/Hives Verified 01/17/18 21:18 sumatriptan succinate Allergy Anaphylaxis Verified 01/17/18 21:18 [From Imitrex] Physical Exam Vitals: Vital Signs Temp Pulse Resp BP Pulse Ox 01/18/18 07:32 97.5 F L 73 18 118/65 97 01/18/18 05:34 98.9 F 63 18 98/57 95 01/18/18 04:05 97.6 F 79 18 108/74 96 01/18/18 01:14 98.0 F 75 18 113/70 97 01/17/18 23:02 74 20 143/83 96 01/17/18 21:02 97.7 F 01/17/18 21:01 74 18 135/84 97 Intake and Output 01/17/18 01/18/18 01/18/18 22:59 06:59 14:59 Other: Weight 91.172 kg - Constitutional General appearance: no acute distress - Respiratory Respiratory: bilateral: CTA - Cardiovascular Rhythm: regular Heart sounds: normal: S1, S2 Results 01/17/18 21:45 01/17/18 21:45 Cardiac Enzymes 01/17/18 01/17/18 01/18/18 Range/Units 21:45 21:45 03:48 AST 30 (14-36) U/L CK-MB (CK-2) 0.7 0.8 (0.0-2.4) ng/mL Troponin I <0.012 <0.012 (0.000-0.034) ng/mL Coagulation 01/17/18 Range/Units 21:45 PT 9.7 (9.0-12.0) sec APTT 21.6 L (22.0-30.0) sec CBC 01/17/18 Range/Units 21:45 WBC 10.2 (3.8-10.6) k/uL RBC 4.45 (3.80-5.40) m/uL Hgb 12.7 (11.4-16.0) gm/dL Hct 39.0 (34.0-46.0) % Plt Count 277 (150-450) k/uL Comprehensive Metabolic Panel 01/17/18 Range/Units 21:45 Sodium 137 (137-145) mmol/L Potassium 4.6 (3.5-5.1) mmol/L Chloride 105 (98-107) mmol/L Carbon Dioxide 24 (22-30) mmol/L BUN 15 (7-17) mg/dL Creatinine 0.70 (0.52-1.04) mg/dL Glucose 94 (74-99) mg/dL Calcium 9.2 (8.4-10.2) mg/dL AST 30 (14-36) U/L ALT 56 H (9-52) U/L Alkaline Phosphatase 42 (38-126) U/L Total Protein 6.4 (6.3-8.2) g/dL Albumin 3.8 (3.5-5.0) g/dL Current Medications Generic Name Dose Route Start Last Admin Trade Name Freq PRN Reason Stop Dose Admin Acetaminophen 650 mg 01/18/18 00:38 01/18/18 04:04 Tylenol Tab PO 650 mg Q4H PRN Administration Fever and/ or Pain Aripiprazole 5 mg 01/18/18 06:00 01/18/18 05:35 Abilify PO 5 mg DAILY@0600 LARS Administration Aspirin 325 mg 08/09/18 09:00 Aspirin PO DAILY LARS Bupropion HCl 150 mg 01/18/18 06:00 01/18/18 05:35 Wellbutrin Xl PO 150 mg DAILY@0600 LARS Administration Buspirone HCl 10 mg 01/18/18 00:38 Buspar PO TID PRN Anxiety Clonidine 0.1 mg 01/18/18 06:00 01/18/18 05:35 Catapres PO 0.1 mg TID@06,1530,22 LARS Administration Folic Acid 1 mg 01/18/18 06:00 01/18/18 05:35 Folic Acid PO 1 mg DAILY@0600 LARS Administration Sodium Chloride 1,000 mls @ 75 mls/hr 01/17/18 21:52 01/17/18 22:22 Saline 0.9% IV 01/18/18 11:11 75 mls/hr .[id number] STA Administration Ibuprofen 600 mg 01/18/18 00:38 Motrin PO Q6HR PRN Pain Loratadine 4 mg 01/18/18 00:38 Claritin PO Q4H PRN allergy/anxiety Morphine Sulfate 2 mg 01/18/18 00:32 Morphine Sulfate (Inj) IVP Q5M PRN Chest Pain Multivitamins 1 each 01/18/18 06:00 01/18/18 05:35 Theragran PO 1 each DAILY@0600 LARS Administration Nitroglycerin 0.4 mg 01/18/18 00:32 Nitrostat SUBLINGUAL Q5M PRN Chest Pain Thiamine HCl 100 mg 01/18/18 09:00 Vitamin B-1 PO DAILY [facility] Trazodone HCl 50 mg 01/18/18 21:00 Desyrel PO HS LARS Intake and Output 01/17/18 01/18/18 01/18/18 22:59 06:59 14:59 Other: Weight 91.172 kg 01/17/18 21:45 01/17/18 21:45 Assessment and Plan Assessment: Assessment #1 atypical/pleuritic chest discomfort #2 significant history of smoking #3 history of drug abuse Plan #1 the patient was ruled out for acute coronary event #2 PE was ruled out as well as by a normal computed tomography scan of the chest #3 the patient does need to have a stress test to rule out any severe underlying CAD. Unfortunately she ate her breakfast. She would like to go home and have the test done as an outpatient. #4 I will obtain an echocardiogram was Doppler as well #5 follow-up with the patient.
[2018-01-18] MEDS ORDERED: CALCIUM PO SCH (09:00)
[2018-01-18] MEDS ORDERED: THIAMINE 100 MG TAB PO SCH (09:00)
[2018-01-18] MEDS ORDERED: MAGNESIUM PO SCH (09:00)
[2018-01-18 10:29] LABS: Creatine Kinase 54 U/L (30-135)
[2018-01-18 10:42] LABS: Creatine Kinase MB 0.8 ng/mL (0.0-2.4); Troponin I <0.012 ng/mL (0.000-0.034)
--- NOTE | 2018-01-18 12:09 | ECHOF ---
Referral Reason:chest pain MEASUREMENTS -------- HEIGHT: 167.6 cm WEIGHT: 91.2 kg BP: RVIDd: 2.4 cm (< 3.3) IVSd: 1.0 cm (0.6 - 1.1) LVIDd: 4.4 cm (3.9 - 5.3) LVPWd: 1.0 cm (0.6 - 1.1) IVSs: 1.3 cm LVIDs: 2.5 cm LVPWs: 1.4 cm LAESV Index (A-L): 17.20 ml/m Ao Diam: 2.6 cm (2.0 - 3.7) AV Cusp: 2.1 cm (1.5 - 2.6) LA Diam: 2.7 cm (2.7 - 3.8) EPSS: 0.3 cm MV E Cheo: 1.01 m/s MV DecT: 257 ms MV A Cheo: 0.75 m/s MV E/A Ratio: 1.35 RAP: 5.00 mmHg RVSP: 15.12 mmHg MV EF SLOPE: 85.22 mm/s (70 - 150) MV EXCURSION: 1.74 cm (> 18.000) FINDINGS -------- Sinus rhythm. This was a technically good study. The left ventricular size is normal. Left ventricular wall thickness is normal. Overall left vent ricular systolic function is normal with, an EF between 55 - 60 %. The right ventricle is normal in size and function. Normal LA size by volume 22+/-6 ml/m2. The right atrium is normal in size. The aortic valve is trileaflet, and appears structurally normal. No aortic stenosis or regurgitation. The mitral valve leaflets are mildly thickened. There is trace mitral regurgitation. Trace tricuspid regurgitation present. Right ventricular systolic pressure is normal at < 35 mmHg. There is no evidence of pulmonary hypertension. Trace/mild (physiologic) pulmonic regurgitation. The aortic root size is normal. Normal inferior vena cava with normal inspiratory collapse consistent with estimated right atrial pre ssure of 5 mmHg. There is no pericardial effusion. CONCLUSIONS -------- 1. Sinus rhythm. 2. This was a technically good study. 3. The left ventricular size is normal. 4. Left ventricular wall thickness is normal. 5. Overall left ventricular systolic function is normal with, an EF between 55 - 60 %. 6. Normal LA size by volume 22+/-6 ml/m2. 7. The aortic valve is trileaflet, and appears structurally normal. No aortic stenosis or regurgitati on. 8. The mitral valve leaflets are mildly thickened. 9. There is trace mitral regurgitation. 10. Trace tricuspid regurgitation present. 11. Right ventricular systolic pressure is normal at < 35 mmHg. 12. There is no evidence of pulmonary hypertension. 13. Trace/mild (physiologic) pulmonic regurgitation. 14. The aortic root size is normal. 15. There is no pericardial effusion. RESIDENCY DIRECTOR: Jose Zamarripa RDCS
[2018-01-18] MEDS ORDERED: GABAPENTIN 300 MG CAP PO SCH (13:00)
--- NOTE | 2018-01-18 13:05 | P.HPIM ---
History of Present Illness H&P Date: 01/18/18 Chief Complaint: chest pain 32-year-old female who presented to the emergency room with a chief complaint of chest pain. Patient states she is currently undergoing drug rehabilitation at [place]. patient states she began having chest pain yesterday morning. She states that she went to speak with the nurse at the rehabilitation center who told her she was fine and to get back to her class. The patient states she went back and her chest pain persisted. She was also diaphoretic and she noticed severe swelling of her bilateral ankles. She states she went back to the nurse and insisted that she be brought to the hospital for evaluation. She denied associated shortness of breath. Denied nausea or vomiting. The patient was seen and examined in the emergency room. Patient states she is no longer having chest pain. She denies shortness of breath. No further episodes of diaphoresis. Patient's swelling in her ankles has resolved spontaneously. Review of Systems Those systems with pertinent positive or pertinent negative responses have been documented in the HPI Past Medical History Past Medical History: CVA/TIA, Fibromyalgia, Hypertension, Osteoarthritis (OA), Thyroid Disorder Additional Past Medical History / Comment(s): CVA with R sided paralysis which resolved, bilateral TMJ, PCOS, pitted thyroid, migraines, DDD, ruptured disc, chronic low back pain/sciatica, occasional cervical pain. History of Any Multi-Drug Resistant Organisms: MRSA Date of last positivie culture/infection: 2012 MDRO Source:: LEFT BUTTOCK Past Surgical History: Appendectomy, Cholecystectomy Additional Past Surgical History / Comment(s): R ankle-replaced tendon when 14 yo, PAIN CLINIC PROCEDURES Past Anesthesia/Blood Transfusion Reactions: No Reported Reaction Smoking Status: Current every day smoker - Past Family History Mother Family Medical History: CVA/TIA Additional Family Medical History / Comment(s): Mother has had CVAs and TIAs and has DDD Father Family Medical History: CVA/TIA Additional Family Medical History / Comment(s): Father from a brain stem infarct at the age of 64yrs. Medications and Allergies Home Medications Medication Instructions Recorded Confirmed Type ARIPiprazole [Abilify] 5 mg PO DAILY@0600 01/17/18 01/17/18 History Acetaminophen [Tylenol] 650 mg PO Q4H PRN 01/17/18 01/17/18 History Calcium/Magnesium 2 tab PO TID 01/17/18 01/17/18 History Chlorpheniramine Maleate 4 mg PO Q4H PRN 01/17/18 01/17/18 History [Chlor-Trimeton] Folic Acid 1 mg PO DAILY@0600 01/17/18 01/17/18 History Ibuprofen [Motrin] 600 mg PO Q6HR PRN 01/17/18 01/17/18 History Multivitamins, Thera [Multivitamin 1 tab PO DAILY@0600 01/17/18 01/17/18 History (formulary)] Thiamine [Vitamin B-1] 100 mg PO DAILY 01/17/18 01/17/18 History buPROPion XL [Wellbutrin XL] 150 mg PO DAILY@0600 01/17/18 01/17/18 History busPIRone HCl [Buspar] 10 mg PO TID PRN 01/17/18 01/17/18 History cloNIDine HCL [Catapres] 0.1 mg PO TID@06,1530,22 01/17/18 01/17/18 History traZODone HCL 50 - 150 mg PO HS 01/17/18 01/17/18 History Allergies Allergy/AdvReac Type Severity Reaction Status Date / Time latex Allergy Rash/Hives Verified 01/17/18 21:18 sumatriptan succinate Allergy Anaphylaxis Verified 01/17/18 21:18 [From Imitrex] Physical Exam Vitals: Vital Signs Temp Pulse Resp BP Pulse Ox 01/18/18 07:32 97.5 F L 73 18 118/65 97 01/18/18 05:34 98.9 F 63 18 98/57 95 01/18/18 04:05 97.6 F 79 18 108/74 96 01/18/18 01:14 98.0 F 75 18 113/70 97 01/17/18 23:02 74 20 143/83 96 01/17/18 21:02 97.7 F 01/17/18 21:01 74 18 135/84 97 Intake and Output 01/17/18 01/18/18 01/18/18 22:59 06:59 14:59 Other: Weight 91.172 kg GENERAL: This is a 32-year-old female in no apparent distress at the time of examination. Pleasant and cooperative. HEENT: Head is atraumatic, normocephalic. Pupils are equal, round, and reactive to light. Sclerae anicteric. Conjunctivae are clear. Mucus membranes of the mouth are moist. Neck is supple. RESPIRATORY: Clear to ausculation. No wheezes, rales, or rhonchi. No use of accessory muscles. Patient maintaining oxygen saturation greater than 92%. No chest wall tenderness is noted on palpation or with deep breathing. CARDIOVASCULAR: Regular rate and rhythm. S1 and S2 noted. No systolic or diastolic murmur auscultated. No JVD noted. No S3 or S4 noted. GASTROINTESTINAL: No distention noted. Abdomen soft and round. Normal active bowel sounds auscultated x 4 quadrants. No pain or tenderness noted upon palpation. INTEGUMENTARY: No cyanosis. No jaundice. No rashes noted. No cellulitis noted. EXTREMITIES: 2+ peripheral pulses. No evidence of peripheral edema. No calf tenderness noted. NEUROLOGIC: Cranial nerves II-XII intact. PSYCHIATRIC: Awake, alert, and oriented X 3. Appropriate affect. Results CBC & Chem 7: 01/17/18 21:45 01/17/18 21:45 Labs: Abnormal Lab Results - Last 24 Hours (Table) 01/17/18 01/17/18 Range/Units 21:45 21:45 APTT 21.6 L (22.0-30.0) sec D-Dimer 0.77 H (<0.60) mg/L FEU ALT 56 H (9-52) U/L Microbiology - Last 24 Hours (Table) 01/17/18 21:03 Urine Culture - Preliminary Urine,Voided Thrombosis Risk Factor Assmnt - Choose All That Apply Any of the Below Risk Factors Present?: Yes Each Factor Represents 1 point: Obesity (BMI >25) Other Risk Factors: No Other congenital or acquired thrombophilia - If yes, enter type in comment: No Thrombosis Risk Factor Assessment Total Risk Factor Score: 1 Thrombosis Risk Factor Assessment Level: Low Risk Assessment and Plan Plan: ASSESSMENT: Chest pain, troponins negative 3, acute coronary syndrome ruled out history of drug abuse, currently undergoing drug rehab at [place] history of CVA/TIA Hypertension Osteoarthritis History of MRSA, left buttocks 2013 nicotine dependence, patient is a current cigarette smoker PLAN: Patient seen and evaluated by cardiology. An acute coronary has been ruled out. The patient is to follow up with cardiology, Dr. Lackey in 2 weeks to schedule an outpatient stress test. Echocardiogram has been completed. When resulted, abnormal patient may be discharged back to [facility] to continue her drug rehab. Nurse practitioner note has been reviewed by physician. Signing provider agrees with the documented findings, assessment, and plan of care.
--- NOTE | 2018-01-18 13:09 | P.DS ---
Providers Date of admission: 01/18/18 00:32 Expected date of discharge: 01/18/18 Attending physician: Rito Hays Consults: 01/18/18 00:32 Consult Physician Urgent Consulting Provider: Hadley Burr Consult Reason/Comments: Chest pain Do you want consulting provider notified?: Yes Primary care physician: [facility] Course: 32-year-old female who presented to the emergency room with a chief complaint of chest pain. Patient states she is currently undergoing drug rehabilitation at [facility]. patient states she began having chest pain yesterday morning. She states that she went to speak with the nurse at the rehabilitation center who told her she was fine and to get back to her class. The patient states she went back and her chest pain persisted. She was also diaphoretic and she noticed severe swelling of her bilateral ankles. She states she went back to the nurse and insisted that she be brought to the hospital for evaluation. She denied associated shortness of breath. Denied nausea or vomiting. Patient's d-dimer was elevated. She underwent a CTA which was negative for pulmonary embolus. The patient was seen and examined in the emergency room. Patient states she is no longer having chest pain. She denies shortness of breath. No further episodes of diaphoresis. Patient's swelling in her ankles has resolved spontaneously. Echocardiogram was completed revealing ejection fraction of 55-60%, trace mitral regurgitation, trace tricuspid regurgitation. The patient was deemed stable for discharge back to [facility] for drug rehabilitation. She is to follow up with Dr. Lackey in 2 weeks to arrange outpatient stress test. The patient states her blood pressure was elevated at [facility]. Patient was encouraged to take her blood pressure and keep a log and bring to her next appointment with her primary care physician. Patient verbalized understanding. Patient is to resume all medications at time of discharge. DISCHARGE DIAGNOSIS: Chest pain, troponins negative 3, acute coronary syndrome ruled out, patient to have stress test outpatient history of drug abuse, currently undergoing drug rehab at [facility] history of CVA/TIA Hypertension Osteoarthritis History of MRSA, left buttocks 2013 nicotine dependence, patient is a current cigarette smoker Nurse practitioner note has been reviewed by physician. Signing provider agrees with the documented findings, assessment, and plan of care. Patient Condition at Discharge: Stable Plan - Discharge Summary Discharge Rx Participant: No New Discharge Prescriptions: Continue traZODone HCL 50 - 150 mg PO HS Calcium/Magnesium 2 tab PO TID Ibuprofen [Motrin] 600 mg PO Q6HR PRN PRN Reason: Pain Chlorpheniramine Maleate [Chlor-Trimeton] 4 mg PO Q4H PRN PRN Reason: allergy/anxiety Acetaminophen [Tylenol] 650 mg PO Q4H PRN PRN Reason: Fever And/ Or Pain cloNIDine HCL [Catapres] 0.1 mg PO TID@, busPIRone HCl [Buspar] 10 mg PO TID PRN PRN Reason: Anxiety Folic Acid 1 mg PO DAILY@0600 buPROPion XL [Wellbutrin XL] 150 mg PO DAILY@0600 Multivitamins, Thera [Multivitamin (formulary)] 1 tab PO DAILY@0600 ARIPiprazole [Abilify] 5 mg PO DAILY@0600 Thiamine [Vitamin B-1] 100 mg PO DAILY Discharge Medication List ARIPiprazole [Abilify] 5 mg PO DAILY@0600 01/17/18 [History] Acetaminophen [Tylenol] 650 mg PO Q4H PRN 01/17/18 [History] Calcium/Magnesium 2 tab PO TID 01/17/18 [History] Chlorpheniramine Maleate [Chlor-Trimeton] 4 mg PO Q4H PRN 01/17/18 [History] Folic Acid 1 mg PO DAILY@0600 01/17/18 [History] Ibuprofen [Motrin] 600 mg PO Q6HR PRN 01/17/18 [History] Multivitamins, Thera [Multivitamin (formulary)] 1 tab PO DAILY@0600 01/17/18 [ History] Thiamine [Vitamin B-1] 100 mg PO DAILY 01/17/18 [History] buPROPion XL [Wellbutrin XL] 150 mg PO DAILY@0601/17/18 [History] busPIRone HCl [Buspar] 10 mg PO TID PRN 01/17/18 [History] cloNIDine HCL [Catapres] 0.1 mg PO TID@,01/17/18 [History] traZODone HCL 50 - 150 mg PO HS 01/17/18 [History] Follow up Appointment(s)/Referral(s): Sen Harrell MD [Primary Care Provider] - 1 Week Natalio Berry MD [STAFF PHYSICIAN] - 2 Weeks Activity/Diet/Wound Care/Special Instructions: keep a log of your blood pressure readings and bring with you to your follow-up appointment with your primary care physician 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
[2018-01-18 13:18] VITALS: BP 123/74; PULSE 70; RESP 16
[2018-01-18] MEDS ORDERED: traZODone HCL 50 MG TAB PO SCH (21:00)
[2018-01-19] MEDS ORDERED: ASPIRIN 325 MG TAB PO SCH (09:00)
== END 2018-01-18 13:45 | disposition other institution (70) ==
LOC: EC 20:39 → 3OBS 01-18 00:32
PROVIDERS: ADMIT Family Medicine; ATTEND Family Medicine
DX: R07.89 Other chest pain (principal); R61 Generalized hyperhidrosis; R22.43 Localized swelling, mass and lump, lower limb, bilateral; R79.89 Other specified abnormal findings of blood chemistry; I10 Essential (primary) hypertension; F17.210 Nicotine dependence, cigarettes, uncomplicated; Z86.59 Personal history of other mental and behavioral disorders; M79.7 Fibromyalgia; M19.90 Unspecified osteoarthritis, unspecified site; E07.9 Disorder of thyroid, unspecified; E28.2 Polycystic ovarian syndrome; G43.909 Migraine, unspecified, not intractable, without status migrainosus; F41.9 Anxiety disorder, unspecified; F31.9 Bipolar disorder, unspecified; M26.603 Bilateral temporomandibular joint disorder, unspecified; G89.29 Other chronic pain; M54.40 Lumbago with sciatica, unspecified side; M54.2 Cervicalgia; E66.9 Obesity, unspecified; Z68.32 Body mass index [BMI] 32.0-32.9, adult; Z79.899 Other long term (current) drug therapy; Z91.040 Latex allergy status; Z88.8 Allergy status to other drugs, medicaments and biological substances; Z97.5 Presence of (intrauterine) contraceptive device; Z86.14 Personal history of Methicillin resistant Staphylococcus aureus infection; Z90.49 Acquired absence of other specified parts of digestive tract; Z90.89 Acquired absence of other organs; Z86.73 Personal history of transient ischemic attack (TIA), and cerebral infarction without residual deficits; Z82.3 Family history of stroke
CPT/HCPCS: 99285 ×2; 96374 ×2; 96375 ×2; 36415; 93005; 93306; 85379; 80053; 82550 ×2; 82553 ×2; 83735; 84484 ×2; 85025; 85610; 85730; 87040; 87086; 71046; 71275; G0378; J2405; J2270; Q9967

== ENCOUNTER 2018-01-25 13:02 | Emergency (ER) | payer OTHER ==
[2018-01-25 14:03] VITALS: RESP 18
[2018-01-25] MEDS ORDERED: MORPHINE SULFATE 4 MG/ML SYRINGE IM STA (15:27)
[2018-01-25 15:46] LABS: Appearance,Urine Clear (Clear); Bilirubin,Urine Negative (Negative); Blood,Urine Negative (Negative); Color,Urine Colorless; Glucose,Urine (UA) Negative (Negative); Ketones,Urine Negative (Negative); Leukocyte Esterase,Urine Negative (Negative); Nitrite,Urine Negative (Negative); PH, Urine 6.5 (5.0-8.0); Protein,Urine Negative (Negative); Specific Gravity,Urine 1.004 (1.001-1.035); Urobilinogen,Urine <2.0 mg/dL (<2.0)
--- NOTE | 2018-01-25 16:30 | CT ---
EXAMINATION TYPE: CT abdomen pelvis wo con DATE OF EXAM: 01/25/2018 COMPARISON: 02/24/2011 INDICATION: Patient complains of right flank pain. DLP: 778.9 mGycm, Automated exposure control for dose reduction was used. CONTRAST: 0 mL of Isovue 300. Study performed without Oral Contrast TECHNIQUE: Axial images were obtained from above the diaphragm to the pubic rami in the axial plane a t 5 mm thick sections. Reconstructed images are reviewed on the computer in the coronal plane. FINDINGS: Limited CT sections are obtained the lung bases. The lung bases are clear. CT ABDOMEN: Liver: Normal Spleen: Normal Pancreas: Normal Adrenal glands: The adrenal glands are normal. Gallbladder: Surgically absent Kidneys: No masses are evident. No hydronephrosis is present. No cysts are present. No renal stone s are identified. Aorta: Vascular calcification is within the aorta. Inferior vena cava: Normal. CT PELVIS: Loops of bowel within the abdomen and pelvis are normal. Study is without oral contrast limiting their evaluation. Appendix: Not identified. No suspicious inflammatory changes are evident. There are scattered lymph n odes within the mesenteric fat. Consider mesenteric adenitis. Urinary bladder: Normal. Genitourinary structures: Uterus appears normal. Adnexal regions appear within normal limits. The IUD appears to be in the lower uterine segment. Osseous structures: No suspicious lytic or sclerotic lesions. Spondylolysis of L5 may be present. IMPRESSIONS: 1. No acute process. 2. Nonvisualization of the appendix. No suspicious inflammatory changes are evident. Clinical managem ent of any suspected appendicitis will be required. Consider mesenteric adenitis. 3. IUD is in the lower uterine segment.
--- NOTE | 2018-01-25 16:42 | ED ---
General Adult HPI - General Chief complaint: Abdominal Pain Stated complaint: rt sided abd pain Time Seen by Provider: 01/25/18 14:42 Source: patient, RN notes reviewed, old records reviewed Mode of arrival: ambulatory Limitations: no limitations - History of Present Illness Initial comments: This is a 32-year-old female the ER with right-sided to suprapubic abdominal pain. Patient states she has history of PCO as, occasionally with abnormal painful periods. Patient states she started her menses 3 days ago pain is significantly increased. Also complaining of pain in her back around her kidney area she states. She denies any dysuria. Mild decreased urinary output. No fevers. No other significant abdominal pain no nausea vomiting. Patient's taken Motrin Tylenol for pain with no help. She has had pain before with ovary issues - Related Data Home Medications Medication Instructions Recorded Confirmed ARIPiprazole [Abilify] 5 mg PO DAILY 01/17/18 01/25/18 Acetaminophen [Tylenol] 650 mg PO Q6H PRN 01/17/18 01/25/18 Calcium/Magnesium 2 tab PO TID 01/17/18 01/25/18 Chlorpheniramine Maleate 4 mg PO Q4H PRN 01/17/18 01/25/18 [Chlor-Trimeton] Folic Acid 1 mg PO DAILY 01/17/18 01/25/18 Multivitamins, Thera [Multivitamin 1 tab PO DAILY@0600 01/17/18 01/25/18 (formulary)] Thiamine [Vitamin B-1] 100 mg PO DAILY 01/17/18 01/25/18 buPROPion XL [Wellbutrin XL] 150 mg PO DAILY 01/17/18 01/25/18 busPIRone HCl [Buspar] 10 mg PO TID PRN 01/17/18 01/25/18 cloNIDine HCL [Catapres] 0.1 mg PO TID@06,1530,22 01/17/18 01/25/18 traZODone HCL 50 - 150 mg PO HS 01/17/18 01/25/18 Aspirin 325 mg PO DAILY 01/25/18 01/25/18 Gabapentin 600 mg PO TID 01/25/18 01/25/18 Ibuprofen [Motrin Ib] 600 mg PO Q6H PRN 01/25/18 01/25/18 hydrOXYzine PAMOATE 50 mg PO Q4-6H PRN 01/25/18 01/25/18 Allergies Allergy/AdvReac Type Severity Reaction Status Date / Time latex Allergy Rash/Hives Verified 01/25/18 16:01 sumatriptan succinate Allergy Anaphylaxis Verified 01/25/18 16:01 [From Imitrex] Review of Systems ROS Statement: Those systems with pertinent positive or pertinent negative responses have been documented in the HPI. ROS Other: All systems not noted in ROS Statement are negative. Past Medical History Past Medical History: CVA/TIA, Fibromyalgia, Hypertension, Osteoarthritis (OA), Thyroid Disorder Additional Past Medical History / Comment(s): CVA with R sided paralysis which resolved, bilateral TMJ, PCOS, pitted thyroid, migraines, DDD, ruptured disc, chronic low back pain/sciatica, occasional cervical pain. History of Any Multi-Drug Resistant Organisms: MRSA Date of last positivie culture/infection: 2012 MDRO Source:: LEFT BUTTOCK Past Surgical History: Appendectomy, Cholecystectomy Additional Past Surgical History / Comment(s): R ankle-replaced tendon when 14 yo, PAIN CLINIC PROCEDURES Past Anesthesia/Blood Transfusion Reactions: No Reported Reaction Past Psychological History: Anxiety, Bipolar, Depression Smoking Status: Current every day smoker Past Alcohol Use History: None Reported Past Drug Use History: None Reported - Past Family History Mother Family Medical History: CVA/TIA Additional Family Medical History / Comment(s): Mother has had CVAs and TIAs and has DDD Father Family Medical History: CVA/TIA Additional Family Medical History / Comment(s): Father from a brain stem infarct at the age of 64yrs. General Exam Limitations: no limitations General appearance: alert, in no apparent distress, obese Head exam: Present: atraumatic, normocephalic, normal inspection Eye exam: Present: normal appearance, PERRL, EOMI. Absent: scleral icterus, conjunctival injection, periorbital swelling ENT exam: Present: normal exam, mucous membranes moist Neck exam: Present: normal inspection. Absent: tenderness, meningismus, lymphadenopathy Respiratory exam: Present: normal lung sounds bilaterally. Absent: respiratory distress, wheezes, rales, rhonchi, stridor Cardiovascular Exam: Present: regular rate, normal rhythm, normal heart sounds. Absent: systolic murmur, diastolic murmur, rubs, gallop, clicks GI/Abdominal exam: Present: soft, normal bowel sounds. Absent: distended, tenderness, guarding, rebound, rigid Extremities exam: Present: normal inspection, full ROM, normal capillary refill. Absent: tenderness, pedal edema, joint swelling, calf tenderness Back exam: Present: normal inspection Neurological exam: Present: alert, oriented X3, CN II-XII intact Psychiatric exam: Present: normal affect, normal mood Skin exam: Present: warm, dry, intact, normal color. Absent: rash Course Vital Signs 01/25/18 01/25/18 14:01 15:57 Temperature 98.9 F Pulse Rate 76 74 Respiratory 18 18 Rate Blood Pressure 140/89 127/84 O2 Sat by Pulse 99 97 Oximetry - Reevaluation(s) Reevaluation #1: 01/25/18 16:41 Patient's medical record and history is reviewed, history of psychiatric illness , multiple imaging for different causes of abdominal pain Reevaluation #2: 01/25/18 16:42 On reevaluation, patient's pain is improved Medical Decision Making - Medical Decision Making 32 female the ER with nonspecific abdominal pain. CAT scan emergently is negative. Urine is negative. Patient can be discharged home - Lab Data Lab Results 01/25/18 01/25/18 Range/Units 15:25 15:25 Urine Color Colorless Urine Appearance Clear (Clear) Urine pH 6.5 (5.0-8.0) Ur Specific [place] 1.004 (1.001-1.035) Urine Protein Negative (Negative) Urine Glucose (UA) Negative (Negative) Urine Ketones Negative (Negative) Urine Blood Negative (Negative) Urine Nitrite Negative (Negative) Urine Bilirubin Negative (Negative) Urine Urobilinogen <2.0 (<2.0) mg/dL Ur Leukocyte Esterase Negative (Negative) Urine HCG, Qual Not Detected (Not Detectd) - Radiology Data Radiology results: report reviewed (CT pelvis negative for acute disease), image reviewed Disposition Clinical Impression: Abdominal pain, Fibromyalgia, Suprapubic abdominal pain Disposition: HOME SELF-CARE Condition: Good Instructions: Abdominal Pain (ED) Is patient prescribed a controlled substance at d/c from ED?: No Referrals: Sen Harrell MD [Primary Care Provider] - 1-2 days
[2018-01-25 17:15] VITALS: BP 132/79; PULSE 70; TEMP 97.9
== END 2018-01-25 17:15 | disposition home or self-care (01) ==
LOC: EC 13:02
DX: M79.7 Fibromyalgia (principal); R10.30 Lower abdominal pain, unspecified; I10 Essential (primary) hypertension; M19.90 Unspecified osteoarthritis, unspecified site; E07.9 Disorder of thyroid, unspecified; F41.9 Anxiety disorder, unspecified; F31.9 Bipolar disorder, unspecified; F17.200 Nicotine dependence, unspecified, uncomplicated; Z86.14 Personal history of Methicillin resistant Staphylococcus aureus infection; Z86.73 Personal history of transient ischemic attack (TIA), and cerebral infarction without residual deficits; Z90.49 Acquired absence of other specified parts of digestive tract; Z98.890 Other specified postprocedural states; Z79.82 Long term (current) use of aspirin; Z79.899 Other long term (current) drug therapy; Z88.8 Allergy status to other drugs, medicaments and biological substances; Z91.040 Latex allergy status
CPT/HCPCS: 74176; 81003; 81025; 87086; 96372; 99284

== ENCOUNTER → 2019-07-28 | Outpatient (CLI) | payer OTHER ==
--- NOTE | 2019-07-28 12:30 | MR ---
EXAMINATION TYPE: MR cspine/tspine wo con DATE OF EXAM ORDERED: 07/28/2019 10:27 AM HISTORY: ddd. TECHNOLOGIST HISTORY AT TIME OF EXAM: Neck and back pain, ddd COMPARISON: Previous MRI of the thoracic spine dated 12/02/2014 TECHNIQUE: Multiplanar, multiecho imaging of the cervical and thoracic spines was obtained without c ontrast on a 1.5 ayala magnet. FINDINGS: C-SPINE: Prevertebral soft tissues are unremarkable. Vertebral body height and alignment are maintained. Atlantoaxial relationships are normal. There is a normal craniocervical junction. Cord signal is normal. At C2-3 and C3-4, no abnormality is seen. At C4-5, there is right-sided intervertebral foraminal narrowing. There is no significant compressive discopathy. The facet and uncovertebral joints are unremarkable. At C5-C6, there is mild, bilateral intervertebral foraminal narrowing. There is no significant compre ssive discopathy. The facet and uncovertebral joints are unremarkable. At C6-7 and C7-T1, no abnormality is seen. T-SPINE: There is a 1.9 cm lesion in the posterior segment of the right lobe of the liver which is hi gh in signal on T2 weighting. This may represent a cyst. This should BE confirmed with ultrasound. Vertebral body height and alignment are maintained. No fractures are seen. There is a right paracentr al disc bulge at T7-T8 mildly deforming the thecal sac without cord contact. No other discogenic bulg es seen. The intervertebral foramina are reasonably well-maintained. IMPRESSION: 1. MULTILEVEL CERVICAL FORAMINAL NARROWING. 2. TINY RIGHT-SIDED PARACENTRAL DISC DISPLACEMENT, T7-8 DEFORMING THE THECAL SAC WITHOUT CORD CONTACT . #9 WELL-DEFINED LESION WITHIN THE POSTERIOR SEGMENT OF THE RIGHT LOBE OF THE LIVER MAY REPRESENT A CYST. THIS SHOULD BE CONFIRMED WITH ULTRASOUND.
== END | disposition home or self-care (01) ==
LOC: RADMRIMAIN 09:30
PROVIDERS: ATTEND Physician Assistant
DX: M48.02 Spinal stenosis, cervical region (principal); M51.24 Other intervertebral disc displacement, thoracic region
CPT/HCPCS: 72141; 72146

== ENCOUNTER → 2020-04-28 | Outpatient (CLI) | payer OTHER ==
[2020-04-28 10:33] VITALS: BP 131/91; PULSE 82; RESP 20; TEMP 98.4
--- NOTE | 2020-04-28 11:04 | P.PAINCN ---
History of Present Illness - Reason for Consult Consult date: 04/28/20 - History of Present Illness This is a 35-year-old patient referred by Dr. Fermin with a chief complaint of mid low back pain and low back pain. She has been seen by us last in 2014 were related L5-S1 epidural steroid injections for her which helped significantly. However today she would like to address her mid back pain. Pain is located in the middle of her back right below her bra line described as sharp and stabbing and constant throughout the day. Occasionally radiates outwards to her shoulders and she does feel some weakness in the shoulders and arms and she attributes this to pain. He does take multiple medications include gabapentin 800 mg 3 times a day and Flexeril 10 mg QD which she says helps significantly with her pain. Exacerbating factors are any form of physical activity or movement. Today her pain is a 7 out of 10, at its worst a 10 out of 10, at its best a 5 out of 10. In regards to her overall history she does have a complicated psychiatric history including bipolar disorder, past methamphetamine addiction, and depression and anxiety. She is being managed for all these with a combination of psychiatric medications and overall her mental health is doing well. She is very interested in repeating injections that she has had these in the past and they helped her significantly. She does have a history of IV drug abuse as well and she is currently not using Patient has been taking medications from primary care physician including [] with some relief. Patient denies adverse drug effects from medications. Patient also denies new-onset weakness, bowel/bladder incontinence, or any other signs or symptoms of cauda equina syndrome. There are no signs of acute intoxication, and no indications of medication diversion or overuse. In addition to above, 13-point review of systems is also negative for chest pain, shortness of breath, changes in vision, changes in hearing, new onset weakness, abdominal pain, diarrhea, extreme fatigue, malaise, fever, skin c hanges, homicidal or suicidal ideation, or bowel or bladder incontinence. Physical exam: Vital Signs: Reviewed in EMR GENERAL: Well appearing, in no acute distress PSYCH: Mood and affect is appropriate. Awake, alert, and oriented SKIN: Skin color, texture, turgor normal, no rashes or lesions HEENT: Normocephalic, atraumatic. EOM intact CV: No pedal edema RESP: Respirations are unlabored, no audible wheezing GI: Abdomen non-distended MUSCULOSKELETAL: Bilateral upper and lower extremity strength is normal and symmetric. No atrophy or tone abnormalities are noted. Neck: No pain to palpation over the cervical paraspinous muscles. Spurling negative, Axial Loading Test negative, Perez's sign negative. No pain with neck flexion, extension, or lateral flexion. No obvious deformity or signs of trauma. Normal cervical lordotic curve and normal cervical spine range of motion Thoracic spine: No Tenderness to palpation over the thoracic paraspinal muscles. NEUR: Bilateral upper and lower extremity coordination and muscle stretch reflexes are physiologic and symmetric. Negative clonus. No loss of sensation is noted. Cranial nerves are grossly intact. Imaging: Cervical/Thoracic MRI C2-C3 and C3-C4 no abnormality is seen. C4-C5: Right-sided intravertebral foraminal narrowing. No significant compressive discopathy. Facet and uncovertebral joints are unremarkable. C5-C6 there is mild bilateral intervertebral foraminal narrowing. No significant compressive discopathy. Facet and uncovertebral joints are unremarkable. C6 and C7 and C7-T1 no abnormality is seen. Thoracic spine: 1.9 cm lesion in the posterior segment of the right lobe of the liver which is high signal in T2-weighted. This can possibly be cyst. There is a right paracentral disc bulge at T7-T8 mildly deforming the thecal sac without cord contact. Assessment: 1. Thoracic back pain Plan: 1. Explanation: Diagnoses, prognoses, and multiple treatment options including but not limited to physical therapy, interventional therapies, medication management and surgery were discussed with the patient and all questions were answered to the patient's satisfaction. 2. Investigations: none 3. Counseling: The patient was counseled for 3 minutes on SMOKING CESSATION, BODY MASS INDEX, EXERCISE. Specifically, the patient was instructed regarding the importance of smoking cessation, weight control, and exercise in the context of both chronic pain and overall health. 4. Procedures: Proceed with T7-T8 interlaminar epidural steroid injection (has right paracenral disc bulge at this level) 5. Consultations: Follow up with her psychiatric providers 6. Medications: As prescribed by her psychiatric providers 7. Disposition: For procedure Past Medical History Past Medical History: CVA/TIA, Fibromyalgia, Hypertension, Osteoarthritis (OA), Thyroid Disorder Additional Past Medical History / Comment(s): CVA with R sided paralysis which resolved, bilateral TMJ, PCOS, pitted thyroid, migraines, DDD, ruptured disc, chronic low back pain/sciatica, occasional cervical pain. History of Any Multi-Drug Resistant Organisms: MRSA Year Discovered:: 2012 MDRO Source:: LEFT BUTTOCK Past Surgical History: Appendectomy, Cholecystectomy Additional Past Surgical History / Comment(s): R ankle-replaced tendon when 14 yo, PAIN CLINIC PROCEDURES Past Anesthesia/Blood Transfusion Reactions: No Reported Reaction Past Psychological History: Anxiety, Bipolar, Depression Past Alcohol Use History: None Reported Past Drug Use History: None Reported - Past Family History Mother Family Medical History: CVA/TIA Additional Family Medical History / Comment(s): Mother has had CVAs and TIAs and has DDD Father Family Medical History: CVA/TIA Additional Family Medical History / Comment(s): Father from a brain stem infarct at the age of 64yrs. Medications and Allergies Home Medications Medication Instructions Recorded Confirmed Type Acetaminophen [Tylenol] 650 mg PO Q6H PRN 01/17/18 04/28/20 History Folic Acid 1 mg PO DAILY 01/17/18 04/28/20 History buPROPion XL [Wellbutrin XL] 150 mg PO DAILY 01/17/18 04/28/20 History cloNIDine HCL [Catapres] 0.1 mg PO TID@06,1530,22 01/17/18 04/28/20 History Aspirin 325 mg PO DAILY 01/25/18 04/28/20 History Gabapentin 800 mg PO TID 01/25/18 04/28/20 History Ibuprofen [Motrin Ib] 600 mg PO Q6H PRN 01/25/18 04/28/20 History Cyclobenzaprine [Flexeril] 10 mg PO BID 04/28/20 04/28/20 History Omeprazole [PriLOSEC] 20 mg PO DAILY 04/28/20 04/28/20 History Vitamin E 100 unit PO DAILY 04/28/20 04/28/20 History clonazePAM [KlonoPIN] 0.5 mg PO BID 04/28/20 04/28/20 History Allergies Allergy/AdvReac Type Severity Reaction Status Date / Time latex Allergy Rash/Hives Verified 04/28/20 10:11 sumatriptan succinate Allergy Anaphylaxis Verified 04/28/20 10:11 [From Imitrex] PQRS Measure Charge Sheet PQRS Narrative: Smoking Status Current every day smoker Home Medications: Ambulatory Orders Acetaminophen [Tylenol] 650 mg PO Q6H PRN 01/17/18 Folic Acid 1 mg PO DAILY 01/17/18 buPROPion XL [Wellbutrin XL] 150 mg PO DAILY 01/17/18 cloNIDine HCL [Catapres] 0.1 mg PO TID@06,1530,22 01/17/18 Aspirin 325 mg PO DAILY 01/25/18 Gabapentin 800 mg PO TID 01/25/18 Ibuprofen [Motrin Ib] 600 mg PO Q6H PRN 01/25/18 Cyclobenzaprine [Flexeril] 10 mg PO BID 04/28/20 Omeprazole [PriLOSEC] 20 mg PO DAILY 04/28/20 Vitamin E 100 unit PO DAILY 04/28/20 clonazePAM [KlonoPIN] 0.5 mg PO BID 04/28/20
== END | disposition home or self-care (01) ==
LOC: PNWHC3 09:57
PROVIDERS: ATTEND Anesthesiology
DX: M54.6 Pain in thoracic spine (principal); I10 Essential (primary) hypertension; M19.90 Unspecified osteoarthritis, unspecified site; M79.7 Fibromyalgia; Z86.73 Personal history of transient ischemic attack (TIA), and cerebral infarction without residual deficits; Z79.891 Long term (current) use of opiate analgesic; Z79.899 Other long term (current) drug therapy; Z79.82 Long term (current) use of aspirin; Z91.040 Latex allergy status; Z88.8 Allergy status to other drugs, medicaments and biological substances
CPT/HCPCS: 99211

== ENCOUNTER 2020-05-20 08:04 | Day surgery (SDC) | payer OTHER ==
[~2020-05-20 08:04] MED LIST: LACTATED RINGERS 1,000 ML IV SCH
[2020-05-20 08:28] VITALS: TEMP 97
[2020-05-20] MEDS ORDERED: LIDOCAINE 1% (10MG/ML) FOR IV START INTRADERMA ONE (08:29)
[2020-05-20] MEDS ORDERED: ROPIVACAINE 5MG/ML 20ML VIAL ONE (08:56)
[2020-05-20] MEDS ORDERED: LIDOCAINE 1% INJ 10MG/ML (20 ML MDV) ONE (08:56)
[2020-05-20] MEDS ORDERED: IOPAMIDOL M200 10 ML VIAL ONE (08:56)
[2020-05-20] MEDS ORDERED: DEXAMETHASONE SOD PHOSPHATE 10 MG/ML 1 ML VIAL ONE (08:56)
[2020-05-20] MEDS ORDERED: MIDAZOLAM 2 MG/2 ML VIAL ONE (08:56)
[2020-05-20] MEDS ORDERED: fentaNYL (PF) 50 MCG/ML 2 ML AMP ONE (08:56)
--- NOTE | 2020-05-20 09:37 | P.PCN ---
Date of Procedure: 05/20/20 Preoperative Diagnosis: Thoracic disc bulging and thoracic spondylosis without myelopathy Postoperative Diagnosis: Same as above Procedure(s) Performed: Fluoroscopy epidural steroid injection under fluoroscopic guidance at the T7-T8 level Surgeon: Bryon Gudino Pathology: none sent Condition: stable Disposition: PACU Description of Procedure: The patient was seen in preoperative holding area consent was obtained then she was brought to the procedure room and placed in prone position. Skin was prepped with ChloraPrep and draped in a sterile manner. Lidocaine 1% was used to numb the skin up at the entry site which was levels below the T7 8 epidural space. I used 20-gauge 3-1/2 inch Touhy epidural needle with [id number] to air to identify the epidural space. The needle tip contacted approach to get into the epidural space at the T7 8 level because of the anatomy of the spine in this area. Multiple attempts were tried to get into the epidural space. There was positive [id number] to air negative aspiration for any CSF or blood negative paresthesia. I then injected 1 mL of Isovue which showed typical spread in the epidural space on the AP and lateral views of fluoroscopy. After that I injected Decadron 10 mg +2 MLS of lidocaine 1% posterior free +2 MLS of posterior free normal saline to a total volume of 5 MLS in epidural space. Patient tolerated procedure well. The copy of the needle placement was saved to the C-arm machine at the radiology department.
[2020-05-20] MEDS ORDERED: IV FLUID CONTINUATION 1,000 ML IV ONE (09:55)
[2020-05-20 09:56] VITALS: BP 133/78; PULSE 78; RESP 18
--- NOTE | 2020-05-20 12:58 | FL ---
Fluoroscopy INDICATION: Pain FINDINGS: Fluoroscopy time: 58 seconds. Images obtained: 2. IMPRESSIONS: 1. Documentation of fluoroscopy.
== END 2020-05-20 10:08 | disposition home or self-care (01) ==
LOC: ORPAIN 08:04
PROVIDERS: ATTEND Anesthesiology
DX: M51.24 Other intervertebral disc displacement, thoracic region (principal); M47.814 Spondylosis without myelopathy or radiculopathy, thoracic region; M51.34 Other intervertebral disc degeneration, thoracic region; E66.9 Obesity, unspecified; Z88.8 Allergy status to other drugs, medicaments and biological substances; Z91.040 Latex allergy status; Z68.37 Body mass index [BMI] 37.0-37.9, adult
CPT/HCPCS: 81025; 62321; J2250; J1100; J2001; J3010; Q9966; J2795; 99152; 99153

== ENCOUNTER → 2020-07-21 | Outpatient (CLI) | payer OTHER ==
[2020-07-21 13:46] VITALS: BP 168/129; PULSE 99; RESP 18; TEMP 98.1
--- NOTE | 2020-07-21 13:54 | P.PN ---
Subjective Progress Note Date: 07/21/20 This is a 35-year-old lady with history of spine pain starting from the neck down to the lumbar area. Patient received thoracic epidural steroid injection. The back pain significantly however she was asked to focus in her lower back pain today. Her pain is mostly on the right side of her lower back however it does go across her lower back and goes to the right leg but stays above the right knee level. The patient denies any numbness or tingling in the right leg. She also denies any weakness in the lower extremities or any bowel or bladder dysfunction. The patient admits to using marijuana and tobacco. Patient denies new-onset weakness, bowel/bladder incontinence, or any other signs or symptoms of cauda equina syndrome. There are no signs of acute intoxication, and no indications of medication diversion or overuse. In addition to above, 13-point review of systems is also negative for chest pain, shortness of breath, changes in vision, changes in hearing, new onset weakness, abdominal pain, diarrhea, extreme fatigue, malaise, fever, skin changes, homicidal or suicidal ideation, or bowel or bladder incontinence. Vital Signs: Reviewed in EMR Gen: AAOx3, NAD HEENT: PERRLA,hearing grossly normal Pulm: resp unlabored Neck: supple, trachea midline Neuro exam of the lower extremities: Absent reflexes in the lower extremities bilaterally. Decreased muscle strength to 4 out of 5 for knee flexion and extension bilaterally Straight leg raising test: Negative bilaterally Gerardo's test: Negative bilaterally Range of motion of the lumbar spine: Facet loading test: Positive Tenderness in the paravertebral musculature: Positive tenderness in the lumbar paravertebral musculature bilaterally Neuro: CN II-XII grossly intact, Imaging: Reviewed in EMR/chart. Assessment: Lumbar spondylosis without myelopathy Lumbar myofascial pain Obesity Tobacco dependence Marijuana use Plan: 1. Explanation: Opioid and psychological risk scores were reviewed. Diagnoses, prognoses, and multiple treatment options including but not limited to physical therapy, interventional therapies, adjuvant medical therapies, narcotic medication therapies, and surgery were discussed with the patient and all questions were answered to the patient's satisfaction. 2. Opioid agreement: Signed with the patient and the patient is warned not to use opioids while driving or before driving and not to combine opioids with benzodiazepines or alcohol. 3. Counseling: The patient was counseled extensively on SMOKING CESSATION, BODY MASS INDEX, EXERCISE. Specifically, the patient was instructed regarding the importance of smoking cessation, obesity, and exercise in the context of both chronic pain and overall health. 4. Procedures: Scheduled for diagnostic lumbar medial branch block under fluoroscopic guidance for levels L3 4, L4-L5, and L5-S1 bilaterally 5. Consultations: None 6. Investigations: None 7. Medications: None 8. Disposition: Proceed with the above mentioned procedure as soon as possible 9. Maps were reviewed and were appropriate. Objective - Vital Signs Vital signs: Vital Signs Temp 98.1 F 07/21/20 13:42 Pulse 99 07/21/20 13:42 Resp 18 07/21/20 13:42 BP 168/129 07/21/20 13:42 Pulse Ox 97 07/21/20 13:42
== END | disposition home or self-care (01) ==
LOC: PNWHC3 13:28
PROVIDERS: ATTEND Anesthesiology
DX: M47.816 Spondylosis without myelopathy or radiculopathy, lumbar region (principal); M79.18 Myalgia, other site; E66.9 Obesity, unspecified; F17.200 Nicotine dependence, unspecified, uncomplicated; F12.90 Cannabis use, unspecified, uncomplicated
CPT/HCPCS: 99211

== ENCOUNTER 2020-08-26 18:17 | Emergency (ER) | payer OTHER ==
[2020-08-26 19:10] VITALS: RESP 18
[2020-08-26] MEDS ORDERED: LIDOCAINE 1% INJ 10MG/ML (20 ML MDV) SQ ONE (19:43)
--- NOTE | 2020-08-26 19:56 | ED ---
Extremity Problem HPI - General Chief complaint: Extremity Problem,Nontraumatic Stated complaint: Infection in finger Time Seen by Provider: 08/26/20 19:07 Source: patient, RN/MD Mode of arrival: ambulatory Limitations: no limitations - History of Present Illness Initial comments: 35-year-old well-appearing white female patient presents to the emergency room with left ring finger paronychia since 4 AM. Patient relates to having her nails done. Patient with a history of CVA, fibromyalgia, hypertension and osteoarthritis with surgical history of appendectomy, cholecystectomy, right ankle tendon surgery. -: hour(s) (15) Location: left (ring finger) Quality: aching, constant Consistency: constant Improves with: nothing Worsens with: palpation Associated Symptoms: denies other symptoms - Related Data Home Medications Medication Instructions Recorded Confirmed Folic Acid 1 mg PO DAILY 01/17/18 08/11/20 buPROPion XL [Wellbutrin XL] 300 mg PO QAM 01/17/18 08/11/20 cloNIDine HCL [Catapres] 0.1 mg PO TID@06,1530,22 01/17/18 08/11/20 Gabapentin 800 mg PO TID 01/25/18 08/11/20 Cyclobenzaprine [Flexeril] 10 mg PO BID 04/28/20 08/11/20 Omeprazole [PriLOSEC] 20 mg PO QAM 04/28/20 08/11/20 Topiramate [Topamax] 50 mg PO QAM 04/28/20 08/11/20 Vitamin E 100 unit PO DAILY 04/28/20 08/11/20 clonazePAM [KlonoPIN] 0.5 mg PO BID 04/28/20 08/11/20 Cariprazine HCl [Vraylar] 6 mg PO HS 05/16/20 08/11/20 [place] Carbonate 600 mg PO BID 05/16/20 08/11/20 Ibuprofen [Motrin] 800 mg PO TID 07/14/20 08/11/20 Atomoxetine HCl [Strattera] 40 mg PO DAILY 08/11/20 08/11/20 Previous Rx's Medication Instructions Recorded Cephalexin [Keflex] 500 mg PO Q6HR #40 cap 08/26/20 Allergies Allergy/AdvReac Type Severity Reaction Status Date / Time latex Allergy Rash/Hives Verified 08/26/20 19:07 sumatriptan succinate Allergy Anaphylaxis Verified 08/26/20 19:07 [From Imitrex] Review of Systems ROS Statement: Those systems with pertinent positive or pertinent negative responses have been documented in the HPI. ROS Other: All systems not noted in ROS Statement are negative. Past Medical History Past Medical History: CVA/TIA, Fibromyalgia, Hypertension, Osteoarthritis (OA), Thyroid Disorder Additional Past Medical History / Comment(s): SCOLIOSIS. CVA with R sided paralysis which resolved, bilateral TMJ, PCOS, pitted thyroid, migraines, DDD, ruptured disc, chronic low back pain/sciatica, occasional cervical pain. Irregular periods, "some months I don't have a period, other months I will have bleeding for 3 weeks or more." History of Any Multi-Drug Resistant Organisms: MRSA Date of last positivie culture/infection: 2012 MDRO Source:: LEFT BUTTOCK Past Surgical History: Appendectomy, Cholecystectomy, Pacemaker Additional Past Surgical History / Comment(s): R ankle-replaced tendon when 14 yo, PAIN CLINIC PROCEDURES. Past Anesthesia/Blood Transfusion Reactions: No Reported Reaction Type of Cardiac Device: Unknown Device Placement Date:: Past Psychological History: Anxiety, Bipolar, Depression Smoking Status: Current every day smoker Past Alcohol Use History: Rare Past Drug Use History: Marijuana, Methamphetamine - Past Family History Mother Family Medical History: CVA/TIA Additional Family Medical History / Comment(s): Mother has had CVAs and TIAs and has DDD. Father Family Medical History: CVA/TIA Additional Family Medical History / Comment(s): Father from a brain stem infarct at the age of 64yrs. General Exam Limitations: no limitations General appearance: alert, in no apparent distress Head exam: Present: atraumatic, normocephalic, normal inspection Eye exam: Present: normal appearance, PERRL, EOMI. Absent: scleral icterus, conjunctival injection, periorbital swelling ENT exam: Present: normal exam, mucous membranes moist Neck exam: Present: normal inspection. Absent: tenderness, meningismus, lymphadenopathy Left Hand Wrist exam: Present: other (left ring finger paronychia) Neurological exam: Present: alert, oriented X3 Psychiatric exam: Present: normal affect, normal mood Skin exam: Present: warm, dry, intact, normal color. Absent: rash Course Vital Signs 08/26/20 19:08 Temperature 99.1 F Pulse Rate 86 Respiratory 18 Rate Blood Pressure 159/109 O2 Sat by Pulse 97 Oximetry Procedures - Incision & Drainage Consent Obtained: verbal consent Site: other (left ring finger) Anesthetic Used: lidocaine 1% I&D Cleaning Method: Alcohol Wipe Scalpel Used: #11 I&D Drainage Obtained: Pus, Blood Culture Obtained?: No Patient Tolerated Procedure: well (paronychia drained using digital block) Medical Decision Making - Medical Decision Making Uncomplicated left ring finger paronychia, sensation intact, capillary refill less than 2 seconds, patient with good flexion and extension of ring finger. Dr. Blanco at bedside to assist with drainage. patient will be discharged on antibiotics Disposition Clinical Impression: Paronychia of finger Disposition: HOME SELF-CARE Condition: Good Instructions (If sedation given, give patient instructions): Acute Wound Care (ED) Additional Instructions: Take antibiotics as prescribed, soak finger in warm soapy water 3 times a day. Prescriptions: Cephalexin [Keflex] 500 mg PO Q6HR #40 cap Is patient prescribed a controlled substance at d/c from ED?: No Referrals: Heladio Luis MD [Primary Care Provider] - 1-2 days Time of Disposition: 20:03
[2020-08-26 20:17] VITALS: BP 158/94; PULSE 84; TEMP 98
== END 2020-08-26 20:16 | disposition home or self-care (01) ==
LOC: EC 18:17
DX: L03.011 Cellulitis of right finger (principal); I10 Essential (primary) hypertension; M19.90 Unspecified osteoarthritis, unspecified site; M79.7 Fibromyalgia; G43.909 Migraine, unspecified, not intractable, without status migrainosus; F41.9 Anxiety disorder, unspecified; F32.9 Major depressive disorder, single episode, unspecified; F17.200 Nicotine dependence, unspecified, uncomplicated; Z79.1 Long term (current) use of non-steroidal anti-inflammatories (NSAID); Z79.899 Other long term (current) drug therapy; Z88.8 Allergy status to other drugs, medicaments and biological substances; Z91.040 Latex allergy status; Z86.73 Personal history of transient ischemic attack (TIA), and cerebral infarction without residual deficits; Z90.49 Acquired absence of other specified parts of digestive tract; Z90.89 Acquired absence of other organs; Z98.890 Other specified postprocedural states
CPT/HCPCS: 99283; 10060; J2001

== ENCOUNTER 2020-09-11 04:43 | Emergency (ER) | payer OTHER ==
[2020-09-11] MEDS ORDERED: SODIUM CHLORIDE 0.9% 1,000 ML IV ONE (05:10)
--- NOTE | 2020-09-11 05:38 | ED ---
Female Urogenital HPI - General Chief complaint: Vaginal Bleeding Stated complaint: vaginal bleeding Time Seen by Provider: 09/11/20 04:45 Source: patient Mode of arrival: ambulatory - Related Data Home Medications Medication Instructions Recorded Confirmed Folic Acid 1 mg PO DAILY 01/17/18 08/11/20 buPROPion XL [Wellbutrin XL] 300 mg PO QAM 01/17/18 08/11/20 cloNIDine HCL [Catapres] 0.1 mg PO TID@06,1530,22 01/17/18 08/11/20 Gabapentin 800 mg PO TID 01/25/18 08/11/20 Cyclobenzaprine [Flexeril] 10 mg PO BID 04/28/20 08/11/20 Omeprazole [PriLOSEC] 20 mg PO QAM 04/28/20 08/11/20 Topiramate [Topamax] 50 mg PO QAM 04/28/20 08/11/20 Vitamin E 100 unit PO DAILY 04/28/20 08/11/20 clonazePAM [KlonoPIN] 0.5 mg PO BID 04/28/20 08/11/20 Cariprazine HCl [Vraylar] 6 mg PO HS 05/16/20 08/11/20 [place] Carbonate 600 mg PO BID 05/16/20 08/11/20 Ibuprofen [Motrin] 800 mg PO TID 07/14/20 08/11/20 Atomoxetine HCl [Strattera] 40 mg PO DAILY 08/11/20 08/11/20 Previous Rx's Medication Instructions Recorded Cephalexin [Keflex] 500 mg PO Q6HR #40 cap 08/26/20 Allergies Allergy/AdvReac Type Severity Reaction Status Date / Time latex Allergy Rash/Hives Verified 09/11/20 04:59 sumatriptan succinate Allergy Anaphylaxis Verified 09/11/20 04:59 [From Imitrex] Review of Systems ROS Statement: Those systems with pertinent positive or pertinent negative responses have been documented in the HPI. ROS Other: All systems not noted in ROS Statement are negative. Past Medical History Past Medical History: CVA/TIA, Fibromyalgia, Hypertension, Osteoarthritis (OA), Thyroid Disorder Additional Past Medical History / Comment(s): SCOLIOSIS. CVA with R sided para lysis which resolved, bilateral TMJ, PCOS, pitted thyroid, migraines, DDD, ruptured disc, chronic low back pain/sciatica, occasional cervical pain. Irregular periods, "some months I don't have a period, other months I will have bleeding for 3 weeks or more." History of Any Multi-Drug Resistant Organisms: MRSA Date of last positivie culture/infection: 2012 MDRO Source:: LEFT BUTTOCK Past Surgical History: Appendectomy, Cholecystectomy, Orthopedic Surgery Additional Past Surgical History / Comment(s): R ankle-replaced tendon when 14 yo, PAIN CLINIC PROCEDURES. Past Anesthesia/Blood Transfusion Reactions: No Reported Reaction Type of Cardiac Device: Unknown Device Placement Date:: unk Past Psychological History: Anxiety, Bipolar, Depression Smoking Status: Current every day smoker Past Alcohol Use History: Rare Past Drug Use History: Marijuana, Methamphetamine - Past Family History Mother Family Medical History: CVA/TIA Additional Family Medical History / Comment(s): Mother has had CVAs and TIAs and has DDD. Father Family Medical History: CVA/TIA Additional Family Medical History / Comment(s): Father from a brain stem infarct at the age of 64yrs. Course Vital Signs 09/11/20 09/11/20 04:51 06:18 Temperature 97.9 F Pulse Rate 97 82 Respiratory 18 18 Rate Blood Pressure 152/97 143/98 O2 Sat by Pulse 99 98 Oximetry Medical Decision Making - Lab Data Result diagrams: 09/11/20 05:20 09/11/20 05:20 Lab Results 09/11/20 09/11/20 09/11/20 Range/Units 05:20 05:20 05:20 WBC 13.6 H (3.8-10.6) k/uL RBC 5.14 (3.80-5.40) m/uL Hgb 14.5 (11.4-16.0) gm/dL Hct 43.5 (34.0-46.0) % MCV 84.7 (80.0-100.0) fL MCH 28.2 (25.0-35.0) pg MCHC 33.3 (31.0-37.0) g/dL RDW 14.5 (11.5-15.5) % Plt Count 455 H (150-450) k/uL MPV 6.9 Neutrophils % 70 % Lymphocytes % 22 % Monocytes % 5 % Eosinophils % 2 % Basophils % 1 % Neutrophils # 9.6 H (1.3-7.7) k/uL Lymphocytes # 3.0 (1.0-4.8) k/uL Monocytes # 0.6 (0-1.0) k/uL Eosinophils # 0.3 (0-0.7) k/uL Basophils # 0.1 (0-0.2) k/uL PT 10.1 (9.0-12.0) sec INR 0.9 (<1.2) APTT 22.9 (22.0-30.0) sec Sodium 137 (137-145) mmol/L Potassium 3.7 (3.5-5.1) mmol/L Chloride 101 (98-107) mmol/L Carbon Dioxide 28 (22-30) mmol/L Anion Gap 8 mmol/L BUN 18 H (7-17) mg/dL Creatinine 0.86 (0.52-1.04) mg/dL Est GFR (CKD-EPI)AfAm >90 (>60 ml/min/1.73 sqM) Est GFR (CKD-EPI)NonAf 87 (>60 ml/min/1.73 sqM) Glucose 117 H (74-99) mg/dL Calcium 9.5 (8.4-10.2) mg/dL Total Bilirubin 0.3 (0.2-1.3) mg/dL AST 27 (14-36) U/L ALT 25 (4-34) U/L Alkaline Phosphatase 88 (38-126) U/L Total Protein 7.5 (6.3-8.2) g/dL Albumin 4.7 (3.5-5.0) g/dL Disposition Clinical Impression: Vaginal bleeding Disposition: ADMITTED IP TO THIS [facility] Condition: Good Is patient prescribed a controlled substance at d/c from ED?: No Referrals: Heladio Luis MD [Primary Care Provider] - 1-2 days
[2020-09-11 05:41] LABS: INR 0.9 (<1.2); Partial Thromboplastin Time 22.9 sec (22.0-30.0); Prothrombin Time 10.1 sec (9.0-12.0)
[2020-09-11 05:50] LABS: ALT 25 U/L (4-34); AST 27 U/L (14-36); African American GFR (CKD) >90 (>60 ml/min/1.73 sqM); Albumin 4.7 g/dL (3.5-5.0); Alkaline Phosphatase 88 U/L (38-126); Anion Gap 8 mmol/L; Blood Urea Nitrogen 18 mg/dL (7-17); Calcium 9.5 mg/dL (8.4-10.2); Carbon Dioxide 28 mmol/L (22-30); Chloride 101 mmol/L (98-107); Glucose 117 mg/dL (74-99); Non-African American GFR(CKD) 87 (>60 ml/min/1.73 sqM); Potassium 3.7 mmol/L (3.5-5.1); Sodium 137 mmol/L (137-145); Total Bilirubin 0.3 mg/dL (0.2-1.3); Total Protein 7.5 g/dL (6.3-8.2)
[2020-09-11 05:53] LABS: Basophils # (A) 0.1 k/uL (0-0.2); Basophils % (A) 1 %; Eosinophils # (A) 0.3 k/uL (0-0.7); Eosinophils % (A) 2 %; HCT 43.5 % (34.0-46.0); HGB 14.5 gm/dL (11.4-16.0); Lymphocytes % (A) 22 %; MCH 28.2 pg (25.0-35.0); MCHC 33.3 g/dL (31.0-37.0); MCV 84.7 fL (80.0-100.0); Mean Platelet Volume 6.9; Monocytes # (A) 0.6 k/uL (0-1.0); Monocytes % (A) 5 %; Neutrophils # (A) 9.6 k/uL (1.3-7.7); Neutrophils % (A) 70 %; Platelet Count 455 k/uL (150-450); RBC 5.14 m/uL (3.80-5.40); RDW 14.5 % (11.5-15.5); WBC 13.6 k/uL (3.8-10.6)
[2020-09-11] MEDS ORDERED: LACTATED RINGERS 1,000 ML IV ONE (06:52)
[2020-09-11] MEDS ORDERED: IV FLUID CONTINUATION 1,000 ML IV ONE (06:53)
[2020-09-11] MEDS ORDERED: ONDANSETRON 4 MG/2 ML VIAL ONE (07:00)
[2020-09-11] MEDS ORDERED: DEXAMETHASONE SOD PHOSPHATE 4 MG/ML 1 ML VIAL IVP ONE (07:07)
[2020-09-11] MEDS ORDERED: ONDANSETRON 4 MG/2 ML VIAL IVP ONE (07:07)
[2020-09-11] MEDS ORDERED: LIDOCAINE 1% INJ 10MG/ML (20 ML MDV) ONE (07:08)
[2020-09-11] MEDS ORDERED: MIDAZOLAM 2 MG/2 ML VIAL ONE (07:08)
[2020-09-11] MEDS ORDERED: fentaNYL (PF) 50 MCG/ML 2 ML AMP ONE (07:08)
[2020-09-11] MEDS ORDERED: PHENYLEPHRINE-0.9% NACL SYG 1,000 MCG/10 ML SYRINGE ONE (07:08)
[2020-09-11] MEDS ORDERED: SUCCINYLCHOLINE CHLORIDE 100 MG/5 ML SYR IV ONE (07:08)
[2020-09-11] MEDS ORDERED: PROPOFOL 10 MG/ML 20 ML VIAL IV ONE (07:08)
--- NOTE | 2020-09-11 07:16 | P.HPOB ---
History of Present Illness H&P Date: 09/11/20 Chief Complaint: The laceration with heavy bleeding Patient is a 35-year-old who this morning approximately 3 AM was having intercourse and asked her prior to place entire hand into her vagina when he removed his hand she began having very heavy vaginal bleeding. She was brought to the emergency room and they were unable to delineate where the laceration was coming from and packed her vagina and deviates computed tomography scan over concerns that the IUD may have actually torn something it does not appear that is the case. I was called and came to evaluate I did try and do an exam she was very uncomfortable and in a lot of pain there was significant bright red bleeding coming from the vagina so I left the packing in place and try to digitally find the laceration. It was not in the immediate outer vagina area therefore we are going for a exam under anesthesia with repair of laceration Past medical history substance abuse, hypertension, PCO S Past surgical history cholecystectomy and appendectomy ALLERGIES none social history is significant for methamphetamine abuse she has multiple pockmarks in her lower legs on exam from IV drug use she does relate that she used methamphetamine at approximately 11 PM last night Family history assume for stroke and hypertension On physical exam heart regular lungs clear extremities without pain noted pockmarks across both legs. Hemoglobin is 14 and she is otherwise hemodynamically stable. Assessment vaginal laceration plan repair under anesthesia Past Medical History Past Medical History: CVA/TIA, Fibromyalgia, Hypertension, Osteoarthritis (OA), Thyroid Disorder Additional Past Medical History / Comment(s): SCOLIOSIS. CVA with R sided paralysis which resolved, bilateral TMJ, PCOS, pitted thyroid, migraines, DDD, ruptured disc, chronic low back pain/sciatica, occasional cervical pain. Irregular periods, "some months I don't have a period, other months I will have bleeding for 3 weeks or more." History of Any Multi-Drug Resistant Organisms: MRSA Date of last positivie culture/infection: 2012 MDRO Source:: LEFT BUTTOCK Past Surgical History: Appendectomy, Cholecystectomy, Orthopedic Surgery Additional Past Surgical History / Comment(s): R ankle-replaced tendon when 14 yo, PAIN CLINIC PROCEDURES. Past Anesthesia/Blood Transfusion Reactions: No Reported Reaction Type of Cardiac Device: Unknown Device Placement Date:: unk Past Psychological History: Anxiety, Bipolar, Depression Smoking Status: Current every day smoker Past Alcohol Use History: Rare Past Drug Use History: Marijuana, Methamphetamine - Past Family History Mother Family Medical History: CVA/TIA Additional Family Medical History / Comment(s): Mother has had CVAs and TIAs and has DDD. Father Family Medical History: CVA/TIA Additional Family Medical History / Comment(s): Father from a brain stem infarct at the age of 64yrs. Medications and Allergies Home Medications Medication Instructions Recorded Confirmed Type Folic Acid 1 mg PO DAILY 01/17/18 09/11/20 History buPROPion XL [Wellbutrin XL] 300 mg PO QAM 01/17/18 09/11/20 History cloNIDine HCL [Catapres] 0.1 mg PO TID@06,1530,22 01/17/18 09/11/20 History Gabapentin 800 mg PO TID 01/25/18 09/11/20 History Cyclobenzaprine [Flexeril] 10 mg PO BID 04/28/20 09/11/20 History Omeprazole [PriLOSEC] 20 mg PO QAM 04/28/20 09/11/20 History Topiramate [Topamax] 50 mg PO QAM 04/28/20 09/11/20 History Vitamin E 100 unit PO DAILY 04/28/20 09/11/20 History clonazePAM [KlonoPIN] 0.5 mg PO BID 04/28/20 09/11/20 History [place] Carbonate 600 mg PO BID 05/16/20 09/11/20 History Ibuprofen [Motrin] 800 mg PO TID 07/14/20 09/11/20 History Atomoxetine HCl [Strattera] 40 mg PO DAILY 08/11/20 09/11/20 History Cephalexin [Keflex] 500 mg PO Q6HR #40 cap 08/26/20 09/11/20 Rx Allergies Allergy/AdvReac Type Severity Reaction Status Date / Time latex Allergy Rash/Hives Verified 09/11/20 07:06 sumatriptan succinate Allergy Anaphylaxis Verified 09/11/20 07:06 [From Imitrex] Exam Osteopathic Statement: *. No significant issues noted on an osteopathic structural exam other than those noted in the History and Physical/Consult. Vital Signs Temp Pulse Pulse Resp BP BP Pulse Ox 09/11/20 06:51 97.2 F L 88 17 131/87 98 09/11/20 06:40 18 131/97 09/11/20 06:18 82 18 143/98 98 09/11/20 04:51 97.9 F 97 18 152/97 99 Intake and Output 09/10/20 09/11/20 09/11/20 22:59 06:59 14:59 Intake Total 125 Balance 125 Intake: IV 125 Other: Weight 107.955 kg Results Result Diagrams: 09/11/20 05:20 09/11/20 05:20 Abnormal Lab Results - Last 24 Hours (Table) 09/11/20 09/11/20 Range/Units 05:20 05:20 WBC 13.6 H (3.8-10.6) k/uL Plt Count 455 H (150-450) k/uL Neutrophils # 9.6 H (1.3-7.7) k/uL BUN 18 H (7-17) mg/dL Glucose 117 H (74-99) mg/dL
--- NOTE | 2020-09-11 07:18 | CT ---
EXAM: CT Abdomen and Pelvis With Intravenous Contrast CLINICAL HISTORY: bleed TECHNIQUE: Axial computed tomography images of the abdomen and pelvis with intravenous contrast. CTDI is 38.37 mGy and DLP is 2066.4 mGy-cm. This CT exam was performed using one or more of the following dose reduction techniques: automated exposure control, adjustment of the mA and/or kV according to patient size, and/or use of iterative reconstruction technique. COMPARISON: 01/25/2018. FINDINGS: Lung bases: Unremarkable. No mass. No consolidation. ABDOMEN: Liver: Hepatomegaly, measuring up to 17.7 cm in greatest craniocaudad dimension. A 1.9 cm probable cyst is seen in hepatic segment 7. Gallbladder and bile ducts: Status post cholecystectomy. No ductal dilation. Pancreas: Unremarkable. No mass. No ductal dilation. Spleen: Unremarkable. No splenomegaly. Adrenals: Unremarkable. No mass. Kidneys and ureters: Unremarkable. No solid mass. No hydronephrosis. Stomach and bowel: Unremarkable. No obstruction. No mucosal thickening. PELVIS: Appendix: No findings to suggest acute appendicitis. Bladder: Unremarkable. No mass. Reproductive: Moderate amount of products are noted within the vagina with evidence of active bleeding (series 203, image 74). IUD is seen with the endometrial cavity. ABDOMEN and PELVIS: Intraperitoneal space: Unremarkable. No free air. No significant fluid collection. Bones/joints: No acute fracture. No dislocation. Soft tissues: Unremarkable. Vasculature: Unremarkable. No abdominal aortic aneurysm. Lymph nodes: Unremarkable. No enlarged lymph nodes. IMPRESSION: 1. Moderate amount of products are noted within the vagina with evidence of active bleeding. [employer] consult is recommended. Pelvic ultrasound may be obtained for further evaluation. 2. IUD is seen with the endometrial cavity. 3. Status post cholecystectomy. <MYCVCSECTION> Communications: 09/11/20 07:05 Call From [facility] Dr. Rasmussen on 09/11 07:04 (-04:00)
--- NOTE | 2020-09-11 07:44 | P.OP ---
Date of Procedure: 09/11/20 Preoperative Diagnosis: Vaginal laceration Postoperative Diagnosis: Same Procedure(s) Performed: Exam under anesthesia with repair Anesthesia: DEXTER Surgeon: Bienvenido Renteria Mycologist #1: Yi Larson Estimated Blood Loss (ml): 20 Pathology: none sent Condition: stable Disposition: same day Operative Findings: 5 cm laceration the vagina right side just anterior to the cervix Description of Procedure: Patient was taken to the operating suite where a general anesthetic was found be adequate. She was prepped and draped in the normal sterile fashion and placed in the dorsal lithotomy position. Packing was removed and she was evaluated. Inspection of the vagina revealed one 5 cm laceration on the right vaginal wall deep in the vagina adjacent to the cervix dissection of the remainder the vagina did not reveal any lacerations. Once laceration ration was identified and was delineated with Allis clamps and using 2-0 Vicryl it was reapproximated in a running locking fashion. Once closed bleeding rapidly stopped. IUD strings are noted approximately 1-2 cm outside the cervical os IUD appears in place on CT and I paid special attention and did not disrupt the strings during the surgery. Continued to do inspection of the vagina did not see any further lacerations nor was any more bleeding noted. Sponge, lap, needle counts were all correct 2. Patient was then taken to the recovery room in stable and satisfactory condition. Plan - Discharge Summary New Discharge Prescriptions: No Action cloNIDine HCL [Catapres] 0.1 mg PO TID@06,1530,22 Folic Acid 1 mg PO DAILY buPROPion XL [Wellbutrin XL] 300 mg PO QAM Gabapentin 800 mg PO TID Vitamin E 100 unit PO DAILY Omeprazole [PriLOSEC] 20 mg PO QAM Cyclobenzaprine [Flexeril] 10 mg PO BID clonazePAM [KlonoPIN] 0.5 mg PO BID Topiramate [Topamax] 50 mg PO QAM [place] Carbonate 600 mg PO BID Ibuprofen [Motrin] 800 mg PO TID Atomoxetine HCl [Strattera] 40 mg PO DAILY Cephalexin [Keflex] 500 mg PO Q6HR #40 cap Discharge Medication List Folic Acid 1 mg PO DAILY 01/17/18 [History] buPROPion XL [Wellbutrin XL] 300 mg PO QAM 01/17/18 [History] cloNIDine HCL [Catapres] 0.1 mg PO TID@06,1530,22 01/17/18 [History] Gabapentin 800 mg PO TID 01/25/18 [History] Cyclobenzaprine [Flexeril] 10 mg PO BID 04/28/20 [History] Omeprazole [PriLOSEC] 20 mg PO QAM 04/28/20 [History] Topiramate [Topamax] 50 mg PO QAM 04/28/20 [History] Vitamin E 100 unit PO DAILY 04/28/20 [History] clonazePAM [KlonoPIN] 0.5 mg PO BID 04/28/20 [History] [place] Carbonate 600 mg PO BID 05/16/20 [History] Ibuprofen [Motrin] 800 mg PO TID 07/14/20 [History] Atomoxetine HCl [Strattera] 40 mg PO DAILY 08/11/20 [History] Cephalexin [Keflex] 500 mg PO Q6HR #40 cap 08/26/20 [Rx] Follow up Appointment(s)/Referral(s): Heladio Luis MD [Primary Care Provider] - 1-2 days Bienvenido Renteria DO [Doctor of Osteopathic Medicine] - 09/25/20 Activity/Diet/Wound Care/Special Instructions: No heavy lifting. Complete pelvic rest for 6-8 weeks while this laceration heels nothing in the vagina Discharge Disposition: ADMITTED IP TO THIS HOSP
[2020-09-11 08:15] VITALS: TEMP 96.8
[2020-09-11 09:11] VITALS: RESP 18
[2020-09-11 09:41] VITALS: BP 131/83; PULSE 76
== END 2020-09-11 09:57 | disposition home or self-care (01) ==
LOC: EC 04:43
DX: N93.9 Abnormal uterine and vaginal bleeding, unspecified (principal); F17.200 Nicotine dependence, unspecified, uncomplicated; F32.9 Major depressive disorder, single episode, unspecified; F41.9 Anxiety disorder, unspecified; I10 Essential (primary) hypertension; M19.90 Unspecified osteoarthritis, unspecified site; Z79.1 Long term (current) use of non-steroidal anti-inflammatories (NSAID); Z86.73 Personal history of transient ischemic attack (TIA), and cerebral infarction without residual deficits
CPT/HCPCS: 99285 ×2; 96365 ×2; 96375 ×2; 96361 ×2; 57200; 81025; 36415; 86900; 86901; 80053; 85025; 85610; 85730; 86850; 84703; 74177; J2250; J1100; J2405; J0696; J2001; J3010; J2370; J0330; J2704; Q9967

== ENCOUNTER 2020-11-25 13:17 | Emergency (ER) | payer OTHER ==
[2020-11-25 13:28] VITALS: BP 140/91; PULSE 94; RESP 18; TEMP 98.2
--- NOTE | 2020-11-25 14:56 | ED ---
Skin/Abscess/FB HPI - General Chief complaint: Skin/Abscess/Foreign Body Stated complaint: Absesses in bilateral arm pits Time Seen by Provider: 11/25/20 14:01 Source: patient, RN notes reviewed Mode of arrival: ambulatory Limitations: no limitations - History of Present Illness Initial comments: 35-year-old female presenting to emergency department with draining sores in her right armpit. She notes that she does have abscesses and sores in both armpits and has been on antibiotics given to her by primary care for several months now with no relief. She notes that the abscesses have been draining on her own for approximately 20 minutes today. She noted that she came in to get evaluated. Patient denied ever being diagnosed with hidradenitis suppurativa. She notes that she does have a follow-up appointment with dermatology in January but states that she cannot that long. She had no other complaints or issues at this time. She denied any chest pain shortness breath headache nausea vomiting diarrhea constipation fever fatigue chills. - Related Data Home Medications Medication Instructions Recorded Confirmed Folic Acid 1 mg PO DAILY 01/17/18 09/11/20 buPROPion XL [Wellbutrin XL] 300 mg PO QAM 01/17/18 09/11/20 cloNIDine HCL [Catapres] 0.1 mg PO TID@06,1530,22 01/17/18 09/11/20 Gabapentin 800 mg PO TID 01/25/18 09/11/20 Cyclobenzaprine [Flexeril] 10 mg PO BID 04/28/20 09/11/20 Omeprazole [PriLOSEC] 20 mg PO QAM 04/28/20 09/11/20 Topiramate [Topamax] 50 mg PO QAM 04/28/20 09/11/20 Vitamin E 100 unit PO DAILY 04/28/20 09/11/20 clonazePAM [KlonoPIN] 0.5 mg PO BID 04/28/20 09/11/20 [place] Carbonate 600 mg PO BID 05/16/20 09/11/20 Ibuprofen [Motrin] 800 mg PO TID 07/14/20 09/11/20 Atomoxetine HCl [Strattera] 40 mg PO DAILY 08/11/20 09/11/20 Previous Rx's Medication Instructions Recorded Cephalexin [Keflex] 500 mg PO Q6HR #40 cap 08/26/20 Clindamycin Phosphate [Clindagel 1 applic TOPICAL DAILY 14 Days #60 11/25/20 1%] gm Sulfamethox-Tmp 800-160Mg [Bactrim 1 each PO Q12HR #20 tab 11/25/20 Ds] Allergies Allergy/AdvReac Type Severity Reaction Status Date / Time latex Allergy Rash/Hives Verified 11/25/20 13:28 sumatriptan succinate Allergy Anaphylaxis Verified 11/25/20 13:28 [From Imitrex] Review of Systems ROS Statement: Those systems with pertinent positive or pertinent negative responses have been documented in the HPI. ROS Other: All systems not noted in ROS Statement are negative. Past Medical History Past Medical History: CVA/TIA, Fibromyalgia, Hypertension, Osteoarthritis (OA), Thyroid Disorder Additional Past Medical History / Comment(s): SCOLIOSIS. CVA with R sided paralysis which resolved, bilateral TMJ, PCOS, pitted thyroid, migraines, DDD, ruptured disc, chronic low back pain/sciatica, occasional cervical pain. Irregular periods, "some months I don't have a period, other months I will have bleeding for 3 weeks or more." History of Any Multi-Drug Resistant Organisms: MRSA Date of last positivie culture/infection: 2012 MDRO Source:: LEFT BUTTOCK Past Surgical History: Appendectomy, Cholecystectomy, Orthopedic Surgery Additional Past Surgical History / Comment(s): R ankle-replaced tendon when 14 yo, PAIN CLINIC PROCEDURES. Past Anesthesia/Blood Transfusion Reactions: No Reported Reaction Type of Cardiac Device: Unknown Device Placement Date:: unk Past Psychological History: Anxiety, Bipolar, Depression Smoking Status: Current every day smoker Past Alcohol Use History: None Reported, Rare Past Drug Use History: None Reported, Marijuana, Methamphetamine - Past Family History Mother Family Medical History: CVA/TIA Additional Family Medical History / Comment(s): Mother has had CVAs and TIAs and has DDD. Father Family Medical History: CVA/TIA Additional Family Medical History / Comment(s): Father from a brain stem infarct at the age of 64yrs. General Exam Limitations: no limitations General appearance: alert, in no apparent distress Head exam: Present: atraumatic, normocephalic, normal inspection Eye exam: Present: normal appearance, PERRL, EOMI. Absent: scleral icterus, conjunctival injection, periorbital swelling Neck exam: Present: normal inspection Respiratory exam: Present: normal lung sounds bilaterally. Absent: respiratory distress, wheezes, rales, rhonchi, stridor Cardiovascular Exam: Present: regular rate, normal rhythm, normal heart sounds. Absent: systolic murmur, diastolic murmur, rubs, gallop, clicks Extremities exam: Present: normal inspection, full ROM, normal capillary refill. Absent: tenderness, pedal edema, joint swelling, calf tenderness Neurological exam: Present: alert, oriented X3 Psychiatric exam: Present: normal affect, normal mood Expanded Type of lesion: Present: abscess (3 fluctuant abscesses right arm. Overall draining with mild palpation, several smaller nondraining abscess his left armpit.) Course Vital Signs 11/25/20 13:23 Temperature 98.2 F Pulse Rate 94 Respiratory 18 Rate Blood Pressure 140/91 O2 Sat by Pulse 98 Oximetry Medical Decision Making - Medical Decision Making 35-year-old female presenting with right armpit abscesses that is been draining on their own. Patient most likely has hidradenitis suppurativa based off clinical exam findings and having several abscesses in the armpits. Patient was informed that a surgical consult will most likely be needed. Case discussed with Dr. Calhoun, patient can discharge home with follow-up to dermatology and general surgery. Disposition Clinical Impression: Hidradenitis Disposition: HOME SELF-CARE Condition: Stable Instructions (If sedation given, give patient instructions): Abscess (ED) Additional Instructions: Please return to the Emergency Department if symptoms worsen or any other concerns. Follow-up with general surgery and dermatology as soon as possible Use antibiotics as prescribed. Continue take Motrin as needed for pain. If abscesses or draining on her own allow them to drain. Prescriptions: Sulfamethox-Tmp 800-160Mg [Bactrim Ds] 1 each PO Q12HR #20 tab Clindamycin Phosphate [Clindagel 1%] 1 applic TOPICAL DAILY 14 Days #60 gm Is patient prescribed a controlled substance at d/c from ED?: No Referrals: Heladio Luis MD [Primary Care Provider] - 1-2 days Yohannes Viera MD [STAFF PHYSICIAN] - 1-2 days Time of Disposition: 15:11
== END 2020-11-25 15:18 | disposition home or self-care (01) ==
LOC: EC 13:17 → SUPCPDRO 13:17 → EC 15:18
DX: L73.2 Hidradenitis suppurativa (principal); L02.411 Cutaneous abscess of right axilla; L02.412 Cutaneous abscess of left axilla; I10 Essential (primary) hypertension; M19.90 Unspecified osteoarthritis, unspecified site; G43.909 Migraine, unspecified, not intractable, without status migrainosus; F31.9 Bipolar disorder, unspecified; F41.9 Anxiety disorder, unspecified; F17.200 Nicotine dependence, unspecified, uncomplicated
CPT/HCPCS: 99282

== ENCOUNTER 2021-01-01 09:30 | Day surgery (SDC) | payer OTHER ==
[2020-12-30 15:50] VITALS: BMI 40.1
[2021-01-01] MEDS ORDERED: LIDOCAINE 1% (10MG/ML) FOR IV START INTRADERMA ONE (09:56)
[2021-01-01 10:04] VITALS: RESP 16; TEMP 97.5
[2021-01-01] MEDS ORDERED: PROPOFOL 10 MG/ML 20 ML VIAL IV ONE (10:05)
[2021-01-01] MEDS ORDERED: LIDOCAINE 1% INJ 10MG/ML (20 ML MDV) ONE (10:05)
--- NOTE | 2021-01-01 10:09 | P.GSHP ---
History of Present Illness H&P Date: 01/01/21 Chief Complaint: GERD This is a 35-year-old female who presents today for EGD. She's had issues with GERD. Past Medical History Past Medical History: CVA/TIA, Fibromyalgia, Hypertension, Osteoarthritis (OA), Thyroid Disorder Additional Past Medical History / Comment(s): SCOLIOSIS. CVA with R sided paralysis which resolved, bilateral TMJ, PCOS, pitted thyroid, migraines, DDD, ruptured disc, chronic low back pain/sciatica, occasional cervical pain. Irregular periods, "some months I don't have a period, other months I will have bleeding for 3 weeks or more." History of Any Multi-Drug Resistant Organisms: MRSA Date of last positivie culture/infection: 2012 MDRO Source:: LEFT BUTTOCK Past Surgical History: Appendectomy, Cholecystectomy, Orthopedic Surgery Additional Past Surgical History / Comment(s): R ankle-replaced tendon when 14 yo, PAIN CLINIC PROCEDURES. Past Anesthesia/Blood Transfusion Reactions: No Reported Reaction Type of Cardiac Device: Unknown Device Placement Date:: unk Smoking Status: Current every day smoker - Past Family History Mother Family Medical History: CVA/TIA Additional Family Medical History / Comment(s): Mother has had CVAs and TIAs and has DDD. Father Family Medical History: CVA/TIA Additional Family Medical History / Comment(s): Father from a brain stem infarct at the age of 64yrs. Medications and Allergies Home Medications Medication Instructions Recorded Confirmed Type Folic Acid 1 mg PO DAILY 01/17/18 01/01/21 History buPROPion XL [Wellbutrin XL] 300 mg PO QAM 01/17/18 01/01/21 History cloNIDine HCL [Catapres] 0.1 mg PO TID@06,1530,22 01/17/18 01/01/21 History Gabapentin 800 mg PO TID 01/25/18 01/01/21 History Cyclobenzaprine [Flexeril] 10 mg PO BID 04/28/20 01/01/21 History Omeprazole [PriLOSEC] 20 mg PO QAM 04/28/20 01/01/21 History Topiramate [Topamax] 50 mg PO QAM 04/28/20 01/01/21 History clonazePAM [KlonoPIN] 0.5 mg PO BID 04/28/20 01/01/21 History [place] Carbonate 600 mg PO QAM 05/16/20 01/01/21 History Ibuprofen [Motrin] 800 mg PO TID PRN 07/14/20 01/01/21 History Atomoxetine HCl [Strattera] 40 mg PO DAILY 08/11/20 01/01/21 History Clindamycin Phosphate [Clindagel 1 applic TOPICAL DAILY 14 Days #60 11/25/20 01/01/21 Rx 1%] gm Doxycycline [Vibramycin] 100 mg PO BID 12/30/20 01/01/21 History [place] Carbonate 900 mg PO HS 12/30/20 01/01/21 History Naltrexone HCl [Revia] 50 mg PO BID 12/30/20 01/01/21 History Allergies Allergy/AdvReac Type Severity Reaction Status Date / Time latex Allergy Rash/Hives Verified 12/30/20 15:41 sumatriptan succinate Allergy Anaphylaxis Verified 12/30/20 15:41 [From Imitrex] Surgical - Exam Vital Signs Temp Pulse Resp BP Pulse Ox 97.5 F L 72 16 151/83 98 01/01/21 09:44 01/01/21 09:44 01/01/21 09:44 01/01/21 09:44 01/01/21 09:44 - General well developed, well nourished, no distress - Eyes PERRL - ENT normal pinna - Neck no masses - Respiratory normal expansion - Cardiovascular Rhythm: regular - Abdomen Abdomen: soft, non tender Assessment and Plan Assessment: GERD. We'll perform EGD.
--- NOTE | 2021-01-01 10:16 | P.OP ---
Date of Procedure: 01/01/21 Preoperative Diagnosis: GERD Postoperative Diagnosis: Antral gastritis Small sliding hiatal hernia Esophagitis Procedure(s) Performed: EGD Anesthesia: MAC Surgeon: Yohannes Viera Pathology: other (Antrum, esophagus) Condition: stable Disposition: PACU Description of Procedure: The patient's placed on the endoscopy table in the lateral position. She received IV sedation. The gastroscope placed oropharynx passed in the esophagus into the stomach. The scope was then placed through the pylorus. The first and second portion of the duodenum appeared normal. Scope was then brought back the antrum this was mildly inflamed. A biopsies performed. Scope was then retroflexed and the remainder of the stomach appeared normal. The patient had a small sliding hiatal hernia. The GE junction was at 38 cm. The distal esophagus appeared mildly inflamed a biopsies performed. The proximal esophagus appeared normal. The scope was withdrawn for patient.
[2021-01-01 10:38] VITALS: BP 116/85; PULSE 68
== END 2021-01-01 10:56 | disposition home or self-care (01) ==
LOC: ORWHC2ENDO 09:30
PROVIDERS: ATTEND Surgery
DX: K21.9 Gastro-esophageal reflux disease without esophagitis (principal); K44.9 Diaphragmatic hernia without obstruction or gangrene; K29.50 Unspecified chronic gastritis without bleeding; I10 Essential (primary) hypertension; M19.90 Unspecified osteoarthritis, unspecified site; I69.351 Hemiplegia and hemiparesis following cerebral infarction affecting right dominant side; F17.210 Nicotine dependence, cigarettes, uncomplicated; E28.2 Polycystic ovarian syndrome; M41.9 Scoliosis, unspecified; M79.7 Fibromyalgia; M54.5 Low back pain; G89.29 Other chronic pain; E78.5 Hyperlipidemia, unspecified; Z88.8 Allergy status to other drugs, medicaments and biological substances; Z91.040 Latex allergy status; Z79.899 Other long term (current) drug therapy
CPT/HCPCS: 81025; 88305; 43239; J2001; J2704

== ENCOUNTER → 2021-01-29 | Outpatient (CLI) | payer OTHER ==
[2021-01-29 16:40] LABS: Anisocytosis Slight; Basophils # (A) 0.1 k/uL (0-0.2); Basophils % (A) 1 %; Eosinophils # (A) 0.3 k/uL (0-0.7); Eosinophils % (A) 4 %; HCT 39.4 % (34.0-46.0); HGB 11.6 gm/dL (11.4-16.0); Hypochromasia Marked; Lymphocytes # (A) 1.9 k/uL (1.0-4.8); Lymphocytes % (A) 24 %; MCHC 29.5 g/dL (31.0-37.0); MCV 77.8 fL (80.0-100.0); Mean Platelet Volume 7.5; Microcytosis Moderate; Monocytes # (A) 0.4 k/uL (0-1.0); Monocytes % (A) 5 %; Neutrophils # (A) 4.8 k/uL (1.3-7.7); Neutrophils % (A) 63 %; Platelet Count 402 k/uL (150-450); RBC 5.06 m/uL (3.80-5.40); RDW 19.5 % (11.5-15.5); WBC 7.7 k/uL (3.8-10.6)
== END | disposition home or self-care (01) ==
LOC: LABPAT 16:01
PROVIDERS: ATTEND Surgery
DX: Z01.812 Encounter for preprocedural laboratory examination (principal); K21.00 Gastro-esophageal reflux disease with esophagitis, without bleeding
CPT/HCPCS: 85025

== ENCOUNTER 2021-02-09 08:01 | Observation (INO) | payer OTHER ==
[~2021-02-09 08:01] MED LIST changes: +ACETAMINOPHEN TAB 500 MG TAB PO PRN; +DEXAMETHASONE SOD PHOSPHATE 4 MG/ML 1 ML VIAL IV ONE; +HEPARIN SODIUM,PORCINE/PF 5,000 UNIT/0.5 ML SYRINGE SQ PRN; +HYDROmorphone 0.5 MG/0.5 ML SYRINGE IVP PRN; +ONDANSETRON 4 MG/2 ML VIAL IVP ONE
--- NOTE | 2021-02-09 09:39 | P.GSHP ---
History of Present Illness H&P Date: 02/09/21 Chief Complaint: GERD This is a 28-year-old female referred from Dr. Ramirez. -The patient has had long-standing problems with reflux esophagitis. The patient underwent recent EGD is found have evidence of esophagitis. Patient has been well informed on t he procedure of laparoscopic [place] fundoplication. The patient is aware the risk of the conversion to the open procedure, risk of injury to the stomach, liver and spleen. The patient is also a risk of recurrent GERD and dysphagia symptoms. The patient understands there is a postoperative diet of full liquids for 2 weeks after surgery. Past Medical History Past Medical History: CVA/TIA, Fibromyalgia, Hypertension, Osteoarthritis (OA), Thyroid Disorder Additional Past Medical History / Comment(s): SCOLIOSIS. CVA with R sided paralysis which resolved, bilateral TMJ, PCOS, pitted thyroid, migraines, DDD, ruptured disc, chronic low back pain/sciatica, occasional cervical pain. Irregular periods, "some months I don't have a period, other months I will have bleeding for 3 weeks or more." History of Any Multi-Drug Resistant Organisms: MRSA Date of last positivie culture/infection: 2012 MDRO Source:: LEFT BUTTOCK Past Surgical History: Appendectomy, Cholecystectomy, Orthopedic Surgery Additional Past Surgical History / Comment(s): R ankle-replaced tendon, PAIN CLINIC PROCEDURES, EGD. Past Anesthesia/Blood Transfusion Reactions: No Reported Reaction Type of Cardiac Device: Unknown Device Placement Date:: unk Past Psychological History: ADD/ADHD, Anxiety, Bipolar, Depression Additional Psychological History / Comment(s): Manic bipolar. Smoking Status: Current every day smoker Past Alcohol Use History: None Reported Additional Past Alcohol Use History / Comment(s): STARTED SMOKING AGE 10 and is a ppd smoker. Past Drug Use History: Marijuana, Methamphetamine Additional Drug Use History / Comment(s): Current Marijuana use daily. [facility] She states she last used on 01/01/18. Aware no Marijuana use 24 hrs prior to procedure. - Past Family History Mother Family Medical History: CVA/TIA, Musculoskeletal Disorder Additional Family Medical History / Comment(s): Mother has had CVAs and TIAs and has DDD. Father Family Medical History: CVA/TIA Additional Family Medical History / Comment(s): Father from a brain stem infarct at the age of 64yrs. Medications and Allergies Home Medications Medication Instructions Recorded Confirmed Type Folic Acid 1 mg PO DAILY 01/17/18 02/09/21 History buPROPion XL [Wellbutrin XL] 300 mg PO QAM 01/17/18 02/09/21 History cloNIDine HCL [Catapres] 0.1 mg PO TID@06,1530,22 01/17/18 02/09/21 History Gabapentin 800 mg PO TID 01/25/18 02/09/21 History Cyclobenzaprine [Flexeril] 10 mg PO BID 04/28/20 02/09/21 History Omeprazole [PriLOSEC] 20 mg PO QAM 04/28/20 02/09/21 History clonazePAM [KlonoPIN] 0.5 mg PO BID 04/28/20 02/09/21 History Ibuprofen [Motrin] 800 mg PO TID PRN 07/14/20 02/06/21 History Doxycycline [Vibramycin] 100 mg PO BID PRN 12/30/20 02/09/21 History [place] Carbonate 900 mg PO HS 12/30/20 02/09/21 History Naltrexone HCl [Revia] 50 mg PO BID 12/30/20 02/09/21 History Clindamycin Phosphate [Clindagel 1 applic TOPICAL DAILY PRN 02/06/21 02/09/21 History 1%] Lisdexamfetamine Dimesylate 20 mg PO QAM 02/06/21 02/09/21 History [Vyvanse] Topiramate [Topamax] 100 mg PO QAM 02/06/21 02/09/21 History Allergies Allergy/AdvReac Type Severity Reaction Status Date / Time gluten Allergy Abcesses Verified 02/09/21 08:34 latex Allergy Rash/Hives Verified 02/09/21 08:34 sumatriptan succinate Allergy Anaphylaxis Verified 02/09/21 08:34 [From Imitrex] Surgical - Exam Vital Signs Temp Pulse Resp BP Pulse Ox 96 F L 76 16 157/107 99 02/09/21 08:46 02/09/21 08:46 02/09/21 08:46 02/09/21 08:46 02/09/21 08:46 - General well developed, well nourished, no distress - Eyes PERRL - ENT normal pinna - Neck no masses - Respiratory normal expansion - Cardiovascular Rhythm: regular - Abdomen Abdomen: soft, non tender Assessment and Plan Assessment: We'll perform laparoscopic [place] fundal plication.
[2021-02-09] MEDS ORDERED: GLYCOPYRROLATE 0.2 MG/ML 2 ML VIAL ONE (10:03)
[2021-02-09] MEDS ORDERED: NEOSTIGMINE 1 MG/ML 10 ML VIAL ONE (10:03)
[2021-02-09] MEDS ORDERED: MIDAZOLAM 2 MG/2 ML VIAL ONE (10:05)
[2021-02-09] MEDS ORDERED: SUCCINYLCHOLINE CHLORIDE 100 MG/5 ML SYR IV ONE (10:05)
[2021-02-09] MEDS ORDERED: HYDROmorphone (PF) 1 MG/ML ONE (10:05)
[2021-02-09] MEDS ORDERED: ROCURONIUM 10 MG/ML (5 ML VIAL) IV ONE (10:05)
[2021-02-09] MEDS ORDERED: PROPOFOL 10 MG/ML 20 ML VIAL IV ONE (10:05)
[2021-02-09] MEDS ORDERED: LIDOCAINE 1% INJ 10MG/ML (20 ML MDV) ONE (10:05)
[2021-02-09] MEDS ORDERED: fentaNYL (PF) 50 MCG/ML 2 ML AMP ONE (10:05)
[2021-02-09] MEDS ORDERED: BUPIVACAINE (PF) 0.5% 30 ML VIAL SQ ONE (10:29)
[2021-02-09] MEDS ORDERED: LACTATED RINGERS 1,000 ML IV ONE (11:00)
[2021-02-09] MEDS ORDERED: ONDANSETRON 4 MG/2 ML VIAL IVP PRN (11:06)
--- NOTE | 2021-02-09 11:06 | P.OP ---
Date of Procedure: 02/09/21 Preoperative Diagnosis: GERD Postoperative Diagnosis: GERD Hiatal hernia Procedure(s) Performed: Laparoscopic fundoplication Anesthesia: DEXTER Surgeon: Yohannes Viera Pathology: none sent Condition: stable Disposition: PACU Description of Procedure: Min[place] patient was placed on the operating table in the supine position. The patient received general anesthesia. And was placed in dorsal lithotomy position. The patient was prepped and draped in the usual sterile fashion. The skin incision sites were anesthetized with 1% local Xylocaine. The skin was incised in the left periumbilical area and then using a blade less 5 mm trocar under direct visualization panel cavity was entered. After adequate insufflation the laparoscope was then placed into the peritoneal cavity. Next a 5 mm trochars placed in the right epigastric position. Another 5 millimeter trocar the right lateral position. Another 5 millimeter trocar in the left lateral position a 5 mm trocar is placed in the left epigastric position. And then the initial 5 mm trocar was exchanged for a 10 mm trocar. The left lateral lobe liver was retracted. The hernia was seen. The crural defect was then dissected using the Harmonic scissors device. A 360 crural dissection was performed the esophagus stomach was reduced back into the peritoneal Cavity. The crural defect was then closed using 2-0 Ethibond suture. Next the fundus of the stomach was mobilized using the [place] scissors device. and then a 58-Fr ench bougie dilator was placed oropharynx passed into the esophagus and stomach the fundal plication wrap was then performed by grasping the fundus posteriorly and bringing it around the esophagus and stomach fundoplication was then performed using 2-0 Ethibond suture. Care was taken that the fundal location rested over top of the intra-abdominal esophagus. There was no injury seen to the stomach or esophagus. The dilator was then withdrawn. The abdomen was irrigated there is no bleeding seen. The trochars were then withdrawn and then skin incision sites were closed using 3-0 Monocryl suture Steri-Strips are applied. Patient thought procedure well and sent to recovery room in stable condition.
[2021-02-09] MEDS ORDERED: KETOROLAC 15 MG/ML 1 ML VIAL IVP ONE (11:34)
[2021-02-09] MEDS ORDERED: KETOROLAC 15 MG/ML 1 ML VIAL ONE (11:40)
[2021-02-09] MEDS ORDERED: diphenhydrAMINE 50 MG/ML 1 ML VIAL IVP ONE (11:47)
[2021-02-09] MEDS ORDERED: diphenhydrAMINE 50 MG/ML 1 ML VIAL ONE (11:49)
[2021-02-09] MEDS ORDERED: MIDAZOLAM 2 MG/2 ML VIAL IVP ONE (12:30)
[2021-02-09] MEDS: D5-0.45% NACL WITH KCL 20MEQ/L 1,000 ML IV SCH ×2 (14:18→21:56)
[2021-02-09] MEDS: NICOTINE 21MG/24HR PATCH TRANSDERM SCH (14:21)
--- NOTE | 2021-02-09 14:34 | FL ---
EXAMINATION TYPE: FL esophagus cervic/pharynx DATE OF EXAM: 02/09/2021 LIMITED UGI-ESOPHAGRAM: CLINICAL HISTORY: Hiatal hernia with epigastric pain per patient. Status post [place] fundoplication surgery earlier today. TECHNIQUE: Limited esophagram is performed utilizing 20 oz of Isovue 370. A total of 15 seconds of f luoroscopic time was utilized during procedure. 39 spot images are saved to PACS. Comparison: CT abdomen and pelvis September 11, 2020 FINDINGS: The patient swallowed contrast without difficulty or delay. Esophageal peristalsis and mo tility are within normal limits. There is mild initial delay in flow of contrast along the diaphragma tic hiatus into the stomach, there is no evidence of contrast extravasation to suggest leak. No persi stent hiatal hernia is seen after surgery earlier today. Patient remains asymptomatic. Cholecystectom y clips are redemonstrated. IMPRESSION: No evidence of leak or significant obstruction status post Carlos fundoplication surgery earlier today.
[2021-02-09] MEDS: cloNIDine HCL 0.1 MG TAB PO SCH ×2 (16:12→21:55)
[2021-02-09] MEDS: GABAPENTIN 300 MG CAP PO SCH ×2 (16:12→21:56)
[2021-02-09] MEDS: HYDROmorphone 1 MG/ML 1 ML SYRINGE IVP PRN ×2 (16:17→20:10)
--- NOTE | 2021-02-09 20:35 | P.CONS ---
History of Present Illness - Reason for Consult Consult date: 02/09/21 Medical management Requesting physician: Yohannes Viera - Chief Complaint Reflux - History of Present Illness Consultation: This is a pleasant 36-year-old patient who follows a Dr. Ciaran Ramirez. Chronic stable medical conditions include fibromyalgia, hypertension, hypothyroid, scoliosis, cystic ovary syndrome, chronic low back pain that is waiting to be worked up, irregular menstrual cycles, bipolar, PTSD. Patient had long-standing reflux symptoms with hiatal hernia. Patient was started getting reflux and water. Patient underwent Alka fundoplication by Dr. Viera. Postprocedure patient is on clear liquids. Patient does smoke half to 1 pack a day. Also does marijuana 1 joint a day. Has been off methamphetamines for about 4 months. Lives with her boyfriend Cj. Review of systems: GEN.: Tired EYES: None HEENT: None NECK: None RESPIRATORY: None CARDIOVASCULAR: None GASTROINTESTINAL: Reflux GENITOURINARY: None MUSCULOSKELETAL: Chronic joint muscle aches and pains LYMPHATICS: None HEMATOLOGICAL: None PSYCHIATRY: Some anxiety NEUROLOGICAL: None Past medical history to include: Fibromyalgia, hypertension, hypothyroid, scoliosis, polycystic ovarian syndrome, chronic low back pain being worked up, irregular menstrual periods, bipolar, PTSD, severe GERD, hiatal hernia Social history: Lives with her boyfriend Cj. This methamphetamines has stopped for about 34 months she states. Does marijuana 1 joint a day. Smokes anywhere from half to 1 pack a day. Family history: Mother has stroke and TIAs and DJD. Physical examination: VITAL SIGNS: 97.7, 80, 18, 1 37/92, 97% room air] GENERAL: BMI 38.6, reclining in bed, awake. EYES: Pupils equal. Conjunctiva normal. HEENT: External appearance of nose and ears normal, oral cavity grossly normal. NECK: JVD not raised; masses not palpable. HEART: First and second heart sounds are normal; no edema. LUNGS: Respiratory rate normal; clear to auscultation. ABDOMEN: Soft, mild epigastric tenderness, liver spleen not palpable, no masses palpable. PSYCH: Alert and oriented x3; mood and affect normal. NEUROLOGICAL: Cranial nerves grossly intact; no facial asymmetry, power and se nsation grossly intact. LYMPHATICS: No lymph nodes palpable in the axilla and neck INVESTIGATIONS, reviewed in the clinical context: Blood work from 01/29/2021: WBC 7.7 hemoglobin 11.6 platelets 402 Assessment and plan: -Alka fundoplication for severe GERD symptoms having failed outpatient treatment Clear liquid diet -Obesity BMI 38.6 Weight loss measures and follow with PCP -Chronic fibromyalgia On gabapentin 800 mg 3 times a day -Severe GERD Prilosec 20 mg daily -Essential hypertension Catapres 0.1 mg 3 times a day -PTSD -Bipolar disorder On Klonopin 0.5 mg twice a day Wellbutrin XL 300 mg daily leads implanted 100 mg daily at bedtime vyanse Home medications resumed. Discontinue Motrin. Clear liquid diet. Activity as tolerated. Care was discussed with the patient. Question is answered. Thank you Dr. Viera Past Medical History Past Medical History: CVA/TIA, Fibromyalgia, Hypertension, Osteoarthritis (OA), Thyroid Disorder Additional Past Medical History / Comment(s): SCOLIOSIS. CVA with R sided paralysis which resolved, bilateral TMJ, PCOS, pitted thyroid, migraines, DDD, ruptured disc, chronic low back pain/sciatica, occasional cervical pain. Irregular periods, "some months I don't have a period, other months I will have bleeding for 3 weeks or more." History of Any Multi-Drug Resistant Organisms: MRSA Year Discovered:: 2012 MDRO Source:: LEFT BUTTOCK Past Surgical History: Appendectomy, Cholecystectomy, Orthopedic Surgery Additional Past Surgical History / Comment(s): R ankle-replaced tendon, PAIN CLINIC PROCEDURES, EGD. Past Anesthesia/Blood Transfusion Reactions: No Reported Reaction Type of Cardiac Device: Unknown Device Placement Date:: unk Past Psychological History: ADD/ADHD, Anxiety, Bipolar, Depression Additional Psychological History / Comment(s): Manic bipolar. Smoking Status: Current every day smoker Past Alcohol Use History: None Reported Additional Past Alcohol Use History / Comment(s): STARTED SMOKING AGE 10 and is a ppd smoker. Past Drug Use History: Marijuana, Methamphetamine Additional Drug Use History / Comment(s): Current Marijuana use daily. [facility] She states she last used on 01/01/18. Aware no Marijuana use 24 hrs prior to procedure. - Past Family History Mother Family Medical History: CVA/TIA, Musculoskeletal Disorder Additional Family Medical History / Comment(s): Mother has had CVAs and TIAs and has DDD. Father Family Medical History: CVA/TIA Additional Family Medical History / Comment(s): Father from a brain stem infarct at the age of 64yrs. Medications and Allergies Home Medications Medication Instructions Recorded Confirmed Type Folic Acid 1 mg PO DAILY 01/17/18 02/09/21 History buPROPion XL [Wellbutrin XL] 300 mg PO QAM 01/17/18 02/09/21 History cloNIDine HCL [Catapres] 0.1 mg PO TID@06,1530,22 01/17/18 02/09/21 History Gabapentin 800 mg PO TID 01/25/18 02/09/21 History Cyclobenzaprine [Flexeril] 10 mg PO BID 04/28/20 02/09/21 History Omeprazole [PriLOSEC] 20 mg PO QAM 04/28/20 02/09/21 History clonazePAM [KlonoPIN] 0.5 mg PO BID 04/28/20 02/09/21 History Ibuprofen [Motrin] 800 mg PO TID PRN 07/14/20 02/06/21 History Doxycycline [Vibramycin] 100 mg PO BID PRN 12/30/20 02/09/21 History [place] Carbonate 900 mg PO HS 12/30/20 02/09/21 History Naltrexone HCl [Revia] 50 mg PO BID 12/30/20 02/09/21 History Clindamycin Phosphate [Clindagel 1 applic TOPICAL DAILY PRN 02/06/21 02/09/21 History 1%] Lisdexamfetamine Dimesylate 20 mg PO QAM 02/06/21 02/09/21 History [Vyvanse] Topiramate [Topamax] 100 mg PO QAM 02/06/21 02/09/21 History Allergies Allergy/AdvReac Type Severity Reaction Status Date / Time gluten Allergy Abcesses Verified 02/09/21 08:34 latex Allergy Rash/Hives Verified 02/09/21 08:34 sumatriptan succinate Allergy Anaphylaxis Verified 02/09/21 08:34 [From Imitrex] Physical Exam Vitals: Vital Signs Temp Pulse Pulse Pulse Resp BP Pulse Ox 02/09/21 19:28 97.7 F 80 18 132/92 97 02/09/21 15:40 47 L 164/111 100 02/09/21 15:10 71 174/92 93 L 02/09/21 14:40 58 L 165/108 92 L 02/09/21 14:10 68 172/109 92 L 02/09/21 13:55 66 172/113 91 L 02/09/21 13:40 68 147/76 97 02/09/21 13:26 97.7 F 70 18 162/117 99 02/09/21 13:01 54 L 18 163/93 100 02/09/21 12:31 67 18 181/94 94 L 02/09/21 12:15 61 18 162/77 100 02/09/21 12:01 57 L 18 173/80 100 02/09/21 11:46 58 L 18 158/72 100 02/09/21 11:30 51 L 18 160/93 100 02/09/21 11:11 96.9 F L 57 L 14 138/85 02/09/21 09:02 129/87 02/09/21 08:46 96 F L 76 16 157/107 99 Intake and Output 02/09/21 02/09/21 02/09/21 06:59 14:59 22:59 Intake Total 1350 Output Total 5 Balance 1345 Intake: IV 1350 Output: Estimated Blood Loss 5 Other: # Voids 1 Weight 108.6 kg
[2021-02-09] MEDS ORDERED: LITHIUM CARBONATE 300 MG CAP PO SCH (21:00)
[2021-02-09] MEDS: clonazePAM 0.5 MG TAB PO SCH (21:55)
[2021-02-09] MEDS: NALTREXONE HCL 50 MG TAB PO SCH (21:55)
[2021-02-09] MEDS: PANTOPRAZOLE 40 MG TABLET PO SCH (21:55)
[2021-02-09] MEDS: CYCLOBENZAPRINE 10 MG TAB PO SCH (21:56)
[2021-02-10] MEDS: HYDROmorphone 1 MG/ML 1 ML SYRINGE IVP PRN ×4 (00:34→13:10)
[2021-02-10] MEDS: D5-0.45% NACL WITH KCL 20MEQ/L 1,000 ML IV SCH (06:27)
[2021-02-10] MEDS: cloNIDine HCL 0.1 MG TAB PO SCH (07:25)
[2021-02-10] MEDS ORDERED: PANTOPRAZOLE 40 MG TABLET PO SCH (07:30)
[2021-02-10 07:50] VITALS: BP 139/89; PULSE 76; RESP 16; TEMP 97.9
[2021-02-10] MEDS: NALTREXONE HCL 50 MG TAB PO SCH (08:18)
[2021-02-10] MEDS: GABAPENTIN 300 MG CAP PO SCH (08:25)
[2021-02-10] MEDS: CYCLOBENZAPRINE 10 MG TAB PO SCH (08:25)
[2021-02-10] MEDS: clonazePAM 0.5 MG TAB PO SCH (08:25)
[2021-02-10] MEDS: NICOTINE 21MG/24HR PATCH TRANSDERM SCH (08:25)
[2021-02-10] MEDS: PANTOPRAZOLE 40 MG TABLET PO SCH (08:25)
[2021-02-10] MEDS ORDERED: buPROPion XL 300 MG TAB.ER.24H PO SCH (09:00)
[2021-02-10] MEDS ORDERED: NON FORMULARY DRUG (Lisdexamfetamine Dimesylate [Vyvanse] 20 MG Capsule) PO SCH (09:00)
[2021-02-10] MEDS ORDERED: FOLIC ACID 1 MG TAB PO SCH (09:00)
[2021-02-10] MEDS ORDERED: TOPIRAMATE 100 MG TAB PO SCH (09:00)
[2021-02-10] MEDS ORDERED: ENOXAPARIN 40 MG/0.4 ML SYRINGE SQ SCH (09:00)
[2021-02-10 10:15] VITALS: BMI 38.6
--- NOTE | 2021-02-10 19:19 | P.PN ---
Progress Note - Text Progress Note Date: 02/10/21 - Chief Complaint Reflux Consultation: This is a pleasant 36-year-old patient who follows a Dr. Ciaran Ramirez. Chronic stable medical conditions include fibromyalgia, hypertension, hypothyroid, scoliosis, cystic ovary syndrome, chronic low back pain that is waiting to be worked up, irregular menstrual cycles, bipolar, PTSD. Patient had long-standing reflux symptoms with hiatal hernia. Patient was started getting reflux and water. Patient underwent Alka fundoplication by Dr. Viera. Postprocedure patient is on clear liquids. Patient does smoke half to 1 pack a day. Also does marijuana 1 joint a day. Has been off methamphetamines for about 4 months. Lives with her boyfriend Cj. 02/10/2021: Laying in bed. Comfortable. Tolerating clear liquids. No nausea vomiting. Slight epigastric discomfort. Patient told to discontinue NSAIDs. Prescribed voltaren gel. Patient to follow with PCP. Advised against smoking. Review of systems: Was done for constitutional, cardiovascular, GI, pulmonary. relevant finding as above Current medications reviewed in today's electronic records Past medical history to include: Fibromyalgia, hypertension, hypothyroid, scoliosis, polycystic ovarian syndrome, chronic low back pain being worked up, irregular menstrual periods, bipolar, PTSD, severe GERD, hiatal hernia Social history: Lives with her boyfriend Cj. This methamphetamines has stopped for about 34 months she states. Does marijuana 1 joint a day. Smokes anywhere from half to 1 pack a day. Family history: Mother has stroke and TIAs and DJD. Physical examination: VITAL SIGNS: 97.9, 76, 16, 139/89, 97% room air GENERAL: BMI 38.6, reclining in bed, awake. EYES: Pupils equal. Conjunctiva normal. HEENT: External appearance of nose and ears normal, oral cavity grossly normal. NECK: JVD not raised; masses not palpable. HEART: First and second heart sounds are normal; no edema. LUNGS: Respiratory rate normal; clear to auscultation. ABDOMEN: Soft, mild epigastric tenderness, liver spleen not palpable, no masses palpable. PSYCH: Alert and oriented x3; mood and affect normal. INVESTIGATIONS, reviewed in the clinical context: Blood work from 01/29/2021: WBC 7.7 hemoglobin 11.6 platelets 402 Assessment and plan: -Alka fundoplication for severe GERD symptoms having failed outpatient treatment Clear liquid diet -Obesity BMI 38.6 Weight loss measures and follow with PCP -Chronic fibromyalgia On gabapentin 800 mg 3 times a day -Severe GERD Prilosec 20 mg daily -Essential hypertension Catapres 0.1 mg 3 times a day -PTSD -Chronic nicotine dependence with cigarette smoking Nicotine patch -Marijuana use Discontinue the same -Bipolar disorder On Klonopin 0.5 mg twice a day Wellbutrin XL 300 mg daily leads implanted 100 mg daily at bedtime vyanse Patient counseled about smoking. Also advised not to take NSAIDs. Pain gel prescribed. Other pain control nonmedicated advised. Thank you Dr. Viera Smoke cessation counseling: This was done with the patient. Nicotine patch is being given. More than 3 mi nutes was spent for this
== END 2021-02-10 14:45 | disposition home or self-care (01) ==
LOC: OR 08:01 → 6NMEDSUR 13:05 → OR 23:42 → 6NMEDSUR 23:42
PROVIDERS: ADMIT Surgery; ATTEND Surgery
DX: K21.9 Gastro-esophageal reflux disease without esophagitis (principal); E03.9 Hypothyroidism, unspecified; E66.9 Obesity, unspecified; F12.90 Cannabis use, unspecified, uncomplicated; F17.210 Nicotine dependence, cigarettes, uncomplicated; F31.9 Bipolar disorder, unspecified; F43.10 Post-traumatic stress disorder, unspecified; F90.9 Attention-deficit hyperactivity disorder, unspecified type; G89.29 Other chronic pain; I10 Essential (primary) hypertension; K44.9 Diaphragmatic hernia without obstruction or gangrene; M41.9 Scoliosis, unspecified; M79.7 Fibromyalgia; N83.209 Unspecified ovarian cyst, unspecified side; Z68.38 Body mass index [BMI] 38.0-38.9, adult; Z79.899 Other long term (current) drug therapy; Z82.3 Family history of stroke
CPT/HCPCS: 43280; 81025; 74210; G0378; S4990 ×2; J2250; J1200; J1100; J2710; J0690 ×2; J2405; J2001; J1650; J3010; J1170 ×3; J1885; J0330; J2704; Q9967; J1644

== ENCOUNTER 2021-04-26 14:24 | Emergency (ER) | payer OTHER ==
[2021-04-26 14:29] VITALS: RESP 18; TEMP 98.7
[2021-04-26] MEDS ORDERED: SODIUM CHLORIDE 0.9% 500 ML 500 ML IV STA (14:51)
[2021-04-26 15:50] LABS: ALT 53 U/L (4-34); AST 36 U/L (14-36); African American GFR (CKD) >90 (>60 ml/min/1.73 sqM); Albumin 4.3 g/dL (3.5-5.0); Alkaline Phosphatase 88 U/L (38-126); Anion Gap 8 mmol/L; Blood Urea Nitrogen 9 mg/dL (7-17); Calcium 9.6 mg/dL (8.4-10.2); Carbon Dioxide 21 mmol/L (22-30); Chloride 109 mmol/L (98-107); Glucose 95 mg/dL (74-99); Non-African American GFR(CKD) >90 (>60 ml/min/1.73 sqM); Potassium 4.5 mmol/L (3.5-5.1); Sodium 138 mmol/L (137-145); Total Bilirubin 0.2 mg/dL (0.2-1.3); Total Protein 7.2 g/dL (6.3-8.2)
[2021-04-26 15:59] LABS: Anisocytosis Slight; Basophils # (A) 0.1 k/uL (0-0.2); Basophils % (A) 1 %; Eosinophils # (A) 0.3 k/uL (0-0.7); Eosinophils % (A) 3 %; HCT 42.4 % (34.0-46.0); Hypochromasia Slight; Lymphocytes # (A) 2.5 k/uL (1.0-4.8); Lymphocytes % (A) 21 %; MCH 22.8 pg (25.0-35.0); MCHC 30.7 g/dL (31.0-37.0); MCV 74.2 fL (80.0-100.0); Mean Platelet Volume 7.6; Microcytosis Moderate; Monocytes # (A) 0.6 k/uL (0-1.0); Monocytes % (A) 6 %; Neutrophils # (A) 7.9 k/uL (1.3-7.7); Neutrophils % (A) 69 %; Platelet Count 511 k/uL (150-450); RBC 5.71 m/uL (3.80-5.40); RDW 18.1 % (11.5-15.5); WBC 11.5 k/uL (3.8-10.6)
[2021-04-26 16:01] LABS: INR 0.9 (<1.2); Prothrombin Time 10.2 sec (9.0-12.0)
[2021-04-26 16:08] LABS: Partial Thromboplastin Time 21.7 sec (22.0-30.0)
--- NOTE | 2021-04-26 16:21 | XR ---
EXAMINATION TYPE: XR chest 2V DATE OF EXAM: 04/26/2021 COMPARISON: Chest radiograph 01/17/2018 HISTORY: Right-sided facial droop and weakness. TECHNIQUE: Frontal and lateral views of the chest are obtained. FINDINGS: There is no focal air space opacity, pleural effusion, or pneumothorax seen. The cardiac silhouette size is within normal limits. The osseous structures are intact. IMPRESSION: No acute cardiopulmonary process.
[2021-04-26 16:31] VITALS: BP 134/94; PULSE 87
--- NOTE | 2021-04-26 17:14 | ED ---
General Adult HPI - General Chief complaint: Neuro Symptoms/Deficit Stated complaint: Chest pain,slurred speech Time Seen by Provider: 04/26/21 14:32 Source: patient, RN notes reviewed, old records reviewed Mode of arrival: wheelchair Limitations: no limitations - History of Present Illness Initial comments: 36-year-old female presenting with left-sided facial droop. Patient noticed some drooling. She has had this for the past 36 hours. She denies limb weakness or numbness. She denies fever. Denies cough or dyspnea. She has some central chest discomfort as well. This is been present for the last 24 hours. - Related Data Home Medications Medication Instructions Recorded Confirmed cloNIDine HCL [Catapres] 0.1 mg PO TID 01/17/18 04/26/21 Cyclobenzaprine [Flexeril] 10 mg PO BID 04/28/20 04/26/21 Omeprazole [PriLOSEC] 20 mg PO DAILY 04/28/20 04/26/21 clonazePAM [KlonoPIN] 0.5 mg PO BID 04/28/20 04/26/21 Topiramate [Topamax] 100 mg PO DAILY 02/06/21 04/26/21 Albuterol Sulfate [Proair Hfa] 2 puff INHALATION RT-QID PRN 04/26/21 04/26/21 Cariprazine HCl [Vraylar] 6 mg PO HS 04/26/21 04/26/21 Dextroamphetamine/Amphetamine 5 mg PO DAILY@1330 04/26/21 04/26/21 [Adderall] Gabapentin 800 mg PO TID 04/26/21 04/26/21 Ibuprofen [Motrin] 800 mg PO TID PRN 04/26/21 04/26/21 Lisdexamfetamine Dimesylate 30 mg PO DAILY 04/26/21 04/26/21 [Vyvanse] [place] Carbonate ER [Lithobid] 900 mg PO HS 04/26/21 04/26/21 [place] Carbonate [[place] 300 mg PO DAILY 04/26/21 04/26/21 Carbonate ER] Oxybutynin ER [Ditropan Xl] 10 mg PO DAILY 04/26/21 04/26/21 buPROPion HCL [Wellbutrin XL] 300 mg PO DAILY 04/26/21 04/26/21 Allergies Allergy/AdvReac Type Severity Reaction Status Date / Time gluten Allergy Abcesses Verified 04/26/21 17:17 latex Allergy Rash/Hives Verified 04/26/21 17:17 sumatriptan succinate Allergy Anaphylaxis Verified 04/26/21 17:17 [From Imitrex] Review of Systems ROS Statement: Those systems with pertinent positive or pertinent negative responses have been documented in the HPI. ROS Other: All systems not noted in ROS Statement are negative. Past Medical History Past Medical History: CVA/TIA, Fibromyalgia, Hypertension, Osteoarthritis (OA), Thyroid Disorder Additional Past Medical History / Comment(s): SCOLIOSIS. CVA with R sided paralysis which resolved, bilateral TMJ, PCOS, pitted thyroid, migraines, DDD, ruptured disc, chronic low back pain/sciatica, occasional cervical pain. Irregular periods, "some months I don't have a period, other months I will have bleeding for 3 weeks or more." History of Any Multi-Drug Resistant Organisms: MRSA Date of last positivie culture/infection: 2012 MDRO Source:: LEFT BUTTOCK Past Surgical History: Appendectomy, Cholecystectomy, Orthopedic Surgery Additional Past Surgical History / Comment(s): R ankle-replaced tendon, PAIN CLINIC PROCEDURES, EGD. Past Anesthesia/Blood Transfusion Reactions: No Reported Reaction Type of Cardiac Device: Unknown Device Placement Date:: Past Psychological History: ADD/ADHD, Anxiety, Bipolar, Depression Smoking Status: Current every day smoker Past Alcohol Use History: None Reported Past Drug Use History: Marijuana, Methamphetamine - Past Family History Mother Family Medical History: CVA/TIA, Musculoskeletal Disorder Additional Family Medical History / Comment(s): Mother has had CVAs and TIAs and has DDD. Father Family Medical History: CVA/TIA Additional Family Medical History / Comment(s): Father from a brain stem infarct at the age of 64yrs. General Exam Limitations: no limitations General appearance: alert, in no apparent distress Head exam: Present: atraumatic, normocephalic Eye exam: Present: normal appearance, PERRL ENT exam: Present: normal exam Neck exam: Present: normal inspection. Absent: tenderness, meningismus Respiratory exam: Present: normal lung sounds bilaterally. Absent: respiratory distress, wheezes Cardiovascular Exam: Present: regular rate, normal rhythm GI/Abdominal exam: Present: soft. Absent: distended, tenderness, guarding Extremities exam: Present: normal inspection, normal capillary refill. Absent: pedal edema, calf tenderness Neurological exam: Present: alert, motor sensory deficit (Left facial droop. Fo rehead sparing.) Psychiatric exam: Present: normal affect, normal mood Skin exam: Present: warm, dry, intact. Absent: cyanosis, diaphoretic Course Vital Signs 04/26/21 04/26/21 14:27 16:00 Temperature 98.7 F Pulse Rate 104 H 87 Respiratory 18 18 Rate Blood Pressure 160/102 134/94 O2 Sat by Pulse 98 95 Oximetry - Reevaluation(s) Reevaluation #1: 04/26/21 1600 Patient did not a TPA candidate given the low NIH of 1 and the onset of greater than 24 hours. Reevaluation #2: 04/26/21 18:07 Patient reevaluated, facial droop is improved. EKG Findings - EKG Comments: EKG Findings:: EKG: Normal sinus rhythm low voltage, rate of 90, ID interval 160, QRS duration 78, QTC 469. Medical Decision Making - Medical Decision Making 36-year-old female who had presented with 36 hours of left-sided facial droop. She has a very mild facial droop, NIH of 1. She does have forehead sparing, I do not think this is a Martin's palsy with it is early. CT CT angiography are performed which are negative. Chest x-ray unremarkable. EKG is sinus rhythm. She has a mild leukocytosis of uncertain etiology. Normal hemoglobin, normal electrolytes, she is not . I did give the patient aspirin in the em ergency department. I did plan to admit this patient for further evaluation and treatment. Although her symptoms have improved. This may be TIA. Patient is requesting outpatient follow-up. Given the normal CT CT angiography and improving symptoms at the degree to a referral. She will take aspirin in the meantime. She is given strict return parameters as well as her who is at bedside. Any worsening facial droop, any speech abnormalities, any limb weakness or numbness. Any headache should all prompt reevaluation the emergency department. - Lab Data Result diagrams: 04/26/21 15:18 04/26/21 15:18 Lab Results 04/26/21 04/26/21 04/26/21 Range/Units 15:18 15:18 15:18 WBC 11.5 H (3.8-10.6) k/uL RBC 5.71 H (3.80-5.40) m/uL Hgb 13.0 (11.4-16.0) gm/dL Hct 42.4 (34.0-46.0) % MCV 74.2 L (80.0-100.0) fL MCH 22.8 L (25.0-35.0) pg MCHC 30.7 L (31.0-37.0) g/dL RDW 18.1 H (11.5-15.5) % Plt Count 511 H (150-450) k/uL MPV 7.6 Neutrophils % 69 % Lymphocytes % 21 % Monocytes % 6 % Eosinophils % 3 % Basophils % 1 % Neutrophils # 7.9 H (1.3-7.7) k/uL Lymphocytes # 2.5 (1.0-4.8) k/uL Monocytes # 0.6 (0-1.0) k/uL Eosinophils # 0.3 (0-0.7) k/uL Basophils # 0.1 (0-0.2) k/uL Hypochromasia Slight Anisocytosis Slight Microcytosis Moderate PT 10.2 (9.0-12.0) sec INR 0.9 (<1.2) APTT 21.7 L (22.0-30.0) sec Sodium 138 (137-145) mmol/L Potassium 4.5 (3.5-5.1) mmol/L Chloride 109 H (98-107) mmol/L Carbon Dioxide 21 L (22-30) mmol/L Anion Gap 8 mmol/L BUN 9 (7-17) mg/dL Creatinine 0.82 (0.52-1.04) mg/dL Est GFR (CKD-EPI)AfAm >90 (>60 ml/min/1.73 sqM) Est GFR (CKD-EPI)NonAf >90 (>60 ml/min/1.73 sqM) Glucose 95 (74-99) mg/dL Calcium 9.6 (8.4-10.2) mg/dL Total Bilirubin 0.2 (0.2-1.3) mg/dL AST 36 (14-36) U/L ALT 53 H (4-34) U/L Alkaline Phosphatase 88 (38-126) U/L Troponin I (0.000-0.034) ng/mL Total Protein 7.2 (6.3-8.2) g/dL Albumin 4.3 (3.5-5.0) g/dL Urine Color Urine Appearance (Clear) Urine pH (5.0-8.0) Ur Specific [place] (1.001-1.035) Urine Protein (Negative) Urine Glucose (UA) (Negative) Urine Ketones (Negative) Urine Blood (Negative) Urine Nitrite (Negative) Urine Bilirubin (Negative) Urine Urobilinogen (<2.0) mg/dL Ur Leukocyte Esterase (Negative) Urine RBC (0-5) /hpf Urine WBC (0-5) /hpf Ur Squamous Epith Cells (0-4) /hpf Urine Bacteria (None) /hpf Urine Mucus (None) /hpf Urine HCG, Qual (Not Detectd) 04/26/21 04/26/21 04/26/21 Range/Units 15:18 17:10 17:10 WBC (3.8-10.6) k/uL RBC (3.80-5.40) m/uL Hgb (11.4-16.0) gm/dL Hct (34.0-46.0) % MCV (80.0-100.0) fL MCH (25.0-35.0) pg MCHC (31.0-37.0) g/dL RDW (11.5-15.5) % Plt Count (150-450) k/uL MPV Neutrophils % % Lymphocytes % % Monocytes % % Eosinophils % % Basophils % % Neutrophils # (1.3-7.7) k/uL Lymphocytes # (1.0-4.8) k/uL Monocytes # (0-1.0) k/uL Eosinophils # (0-0.7) k/uL Basophils # (0-0.2) k/uL Hypochromasia Anisocytosis Microcytosis PT (9.0-12.0) sec INR (<1.2) APTT (22.0-30.0) sec Sodium (137-145) mmol/L Potassium (3.5-5.1) mmol/L Chloride (98-107) mmol/L Carbon Dioxide (22-30) mmol/L Anion Gap mmol/L BUN (7-17) mg/dL Creatinine (0.52-1.04) mg/dL Est GFR (CKD-EPI)AfAm (>60 ml/min/1.73 sqM) Est GFR (CKD-EPI)NonAf (>60 ml/min/1.73 sqM) Glucose (74-99) mg/dL Calcium (8.4-10.2) mg/dL Total Bilirubin (0.2-1.3) mg/dL AST (14-36) U/L ALT (4-34) U/L Alkaline Phosphatase (38-126) U/L Troponin I <0.012 (0.000-0.034) ng/mL Total Protein (6.3-8.2) g/dL Albumin (3.5-5.0) g/dL Urine Color Yellow Urine Appearance Clear (Clear) Urine pH 6.0 (5.0-8.0) Ur Specific [place] 1.039 H (1.001-1.035) Urine Protein Negative (Negative) Urine Glucose (UA) Negative (Negative) Urine Ketones Negative (Negative) Urine Blood Moderate H (Negative) Urine Nitrite Negative (Negative) Urine Bilirubin Negative (Negative) Urine Urobilinogen <2.0 (<2.0) mg/dL Ur Leukocyte Esterase Small H (Negative) Urine RBC 1 (0-5) /hpf Urine WBC 4 (0-5) /hpf Ur Squamous Epith Cells 7 H (0-4) /hpf Urine Bacteria Rare H (None) /hpf Urine Mucus Rare H (None) /hpf Urine HCG, Qual Not Detected (Not Detectd) Disposition Clinical Impression: Transient cerebral ischemia Disposition: HOME SELF-CARE Condition: Fair Instructions (If sedation given, give patient instructions): Transient Ischemic Attack (ED) Is patient prescribed a controlled substance at d/c from ED?: No Referrals: Ciaran Ramirez MD [Primary Care Provider] - 1-2 days Eduardo Julien MD [Medical Doctor] - 1-2 days Tomi Red MD [REFERRING] - 1-2 days Celso Prieto MD [STAFF PHYSICIAN] - 1-2 days Time of Disposition: 18:00
--- NOTE | 2021-04-26 17:17 | CT ---
EXAMINATION TYPE: CT brain wo con for TPA DATE OF EXAM: 04/26/2021 COMPARISON: MRI brain 08/16/2013 HISTORY: Left sided facial droop, history of stroke. CT DLP: 1132.8 mGycm Automated exposure control for dose reduction was used. FINDINGS: There is no acute intracranial hemorrhage, mass effect, or midline shift identified. The ventricles and sulci are within normal limits in size. The globes are intact and the visualized sinuses are rosette ar. IMPRESSION: No acute intracranial hemorrhage, mass effect, or midline shift is seen.
[2021-04-26 17:25] LABS: Appearance,Urine Clear (Clear); Bacteria,Urine Rare /hpf; Bilirubin,Urine Negative (Negative); Blood,Urine Moderate (Negative); Color,Urine Yellow; Glucose,Urine (UA) Negative (Negative); Ketones,Urine Negative (Negative); Leukocyte Esterase,Urine Small (Negative); Mucus,Urine Rare /hpf; Nitrite,Urine Negative (Negative); Protein,Urine Negative (Negative); RBC,Urine 1 /hpf (0-5); Specific Gravity,Urine 1.039 (1.001-1.035); Squamous Epithelial Cell,Urine 7 /hpf (0-4); Urobilinogen,Urine <2.0 mg/dL (<2.0); WBC,Urine 4 /hpf (0-5)
--- NOTE | 2021-04-26 17:28 | CT ---
EXAMINATION TYPE: CT angio head neck DATE OF EXAM: 04/26/2021 HISTORY: Left sided facial droop, history of stroke. COMPARISON: None CT DLP: 692.5 mGycm. Automated Exposure Control for Dose Reduction was Utilized. TECHNIQUE: CTA scan of the neck is performed with IV Contrast, patient injected with 65 mL of Isovue 370, axial images are obtained, coronal and sagittal reformatted images are reviewed. 3D reconstruct ed images are created on an independent workstation and reviewed. FINDINGS: Carotid/Vascular Structures: Four-vessel aortic arch. The left vertebral artery arises from the aorti c arch. No significant atherosclerotic disease of the cervical carotid arteries or vertebral arteries . The distal internal carotid arteries are patent. The vertebrobasilar system is patent. There is sugge stion of mild narrowing of the right anterior cerebral artery A2 segment. The left anterior cerebral artery, the bilateral middle cerebral arteries and posterior superior arteries are patent. No aneurysm. IMPRESSION: No large vessel occlusion, hemodynamically significant stenosis or aneurysm in the head o r neck. NASCET criteria was used in interpretation of this exam?
[2021-04-26] MEDS ORDERED: ASPIRIN 325 MG TAB PO STA (17:50)
[2021-04-26 18:22] LABS: Amphetamine Screen,Urine Detected (NotDetected); Barbiturate Screen,Urine Not Detected (NotDetected); Benzodiazepines Screen,Urine Not Detected (NotDetected); Cocaine Screen,Urine Not Detected (NotDetected); Methadone Screen, Urine Not Detected (NotDetected); Opiate Screen,Urine Not Detected (NotDetected); Oxycodone Screen, Urine Not Detected (NotDetected); Phencyclidine Screen,Urine Not Detected (NotDetected); Tricyclic Antidepressant,Urine Detected (NotDetected); Urn Cannabinoid Scrn Detected (NotDetected)
== END 2021-04-26 18:39 | disposition home or self-care (01) ==
LOC: EC 14:24
DX: G45.9 Transient cerebral ischemic attack, unspecified (principal); I10 Essential (primary) hypertension; R07.89 Other chest pain; F17.200 Nicotine dependence, unspecified, uncomplicated; Z91.018 Allergy to other foods; Z91.040 Latex allergy status; Z88.8 Allergy status to other drugs, medicaments and biological substances; Z86.73 Personal history of transient ischemic attack (TIA), and cerebral infarction without residual deficits; Z79.899 Other long term (current) drug therapy
CPT/HCPCS: 36415; 93005; 80053; 84484; 85025; 85610; 85730; 81001; 81025; 80306; 71046; 70496; 70450; 70498; 99285; Q9967

== ENCOUNTER 2021-04-27 19:52 | Observation (INO) | payer OTHER ==
[2021-04-27 20:59] LABS: Anisocytosis Slight; Basophils % (A) 0 %; Eosinophils # (A) 0.3 k/uL (0-0.7); Eosinophils % (A) 3 %; HCT 39.3 % (34.0-46.0); Hypochromasia Marked; Lymphocytes # (A) 2.7 k/uL (1.0-4.8); Lymphocytes % (A) 27 %; MCH 23.4 pg (25.0-35.0); MCHC 30.5 g/dL (31.0-37.0); MCV 76.7 fL (80.0-100.0); Mean Platelet Volume 7.3; Microcytosis Slight; Monocytes # (A) 0.4 k/uL (0-1.0); Monocytes % (A) 4 %; Neutrophils # (A) 6.6 k/uL (1.3-7.7); Neutrophils % (A) 64 %; Platelet Count 431 k/uL (150-450); RBC 5.12 m/uL (3.80-5.40); WBC 10.2 k/uL (3.8-10.6)
[2021-04-27 21:08] LABS: Albumin 3.9 g/dL (3.5-5.0); Calcium 9.5 mg/dL (8.4-10.2); Potassium 3.8 mmol/L (3.5-5.1); Total Bilirubin 0.1 mg/dL (0.2-1.3); Total Protein 6.4 g/dL (6.3-8.2)
[2021-04-27 21:09] LABS: Appearance,Urine Cloudy (Clear); Bacteria,Urine Rare /hpf; Bilirubin,Urine Negative (Negative); Blood,Urine Small (Negative); Calcium Oxalate Crystals,Urine Few /hpf; Color,Urine Yellow; Glucose,Urine (UA) Negative (Negative); Ketones,Urine Negative (Negative); Leukocyte Esterase,Urine Negative (Negative); Mucus,Urine Moderate /hpf; Nitrite,Urine Negative (Negative); PH, Urine 5.5 (5.0-8.0); Protein,Urine Negative (Negative); RBC,Urine 1 /hpf (0-5); Specific Gravity,Urine 1.021 (1.001-1.035); Squamous Epithelial Cell,Urine 4 /hpf (0-4); Urobilinogen,Urine <2.0 mg/dL (<2.0); WBC,Urine 4 /hpf (0-5)
[2021-04-27 21:19] LABS: Amphetamine Screen,Urine Detected (NotDetected); Barbiturate Screen,Urine Not Detected (NotDetected); Benzodiazepines Screen,Urine Not Detected (NotDetected); Cocaine Screen,Urine Not Detected (NotDetected); Methadone Screen, Urine Not Detected (NotDetected); Opiate Screen,Urine Not Detected (NotDetected); Oxycodone Screen, Urine Not Detected (NotDetected); Phencyclidine Screen,Urine Not Detected (NotDetected); Tricyclic Antidepressant,Urine Not Detected (NotDetected); Urn Cannabinoid Scrn Detected (NotDetected)
--- NOTE | 2021-04-27 22:46 | CT ---
EXAMINATION TYPE: CT brain wo con DATE OF EXAM: 04/27/2021 COMPARISON: Yesterday HISTORY: facial drooping, facial weakness CT DLP: 1127.4 mGycm Automated exposure control for dose reduction was used. Ventricles have normal size. There is no mass effect nor midline shift. There is no sign of intracran ial hemorrhage. The calvarium is intact. IMPRESSION: Negative unenhanced head CT scan. No change.
[2021-04-28] MEDS ORDERED: ACETAMINOPHEN TAB 325 MG TAB PO PRN (01:27)
[2021-04-28] MEDS ORDERED: ALBUTEROL NEBULIZED 2.5 MG/3 ML INHALATION PRN (02:27)
[2021-04-28] MEDS ORDERED: IBUPROFEN 800 MG TAB PO PRN (02:27)
--- NOTE | 2021-04-28 02:40 | ED ---
Neuro HPI - General Chief Complaint: Neuro Symptoms/Deficit Stated Complaint: Neuro Symptoms, Revisit Time Seen by Provider: 04/27/21 21:52 Source: patient Mode of arrival: ambulatory Limitations: no limitations - History of Present Illness Is the patient presenting with stroke symptoms?: Yes Onset/Timin -: days(s) Initial Comments: This patient is a 36-year-old woman who presents here to have evaluation of symptoms for which she was seen yesterday. The patient states that she was here yesterday after she developed left-sided facial weakness and some slurred speech. She had been seen in the emergency department the symptoms were starting to improve so she was diagnosed with TIA and she was sent home to follow with neurology as outpatient. The patient states that her symptoms have worsened. She again complains of left-sided facial weakness and trouble speaking. There is no headache. No other change in sensation. Location: speech, left face Place: home Severity: mild Quality: weak Improves With: none Worsens With: none On Anticoagulants: No Context: sudden onset Associated Symptoms: denies other symptoms Treatments Prior to Arrival: none - Related Data Home Medications: Home Medications Medication Instructions Recorded Confirmed cloNIDine HCL [Catapres] 0.1 mg PO TID 01/17/18 04/27/21 Cyclobenzaprine [Flexeril] 10 mg PO BID 04/28/20 04/27/21 clonazePAM [KlonoPIN] 0.5 mg PO BID 04/28/20 04/27/21 Topiramate [Topamax] 100 mg PO DAILY 02/06/21 04/27/21 Albuterol Sulfate [Proair Hfa] 2 puff INHALATION RT-QID PRN 04/26/21 04/27/21 Cariprazine HCl [Vraylar] 6 mg PO HS 04/26/21 04/27/21 Dextroamphetamine/Amphetamine 5 mg PO DAILY@1330 04/26/21 04/27/21 [Adderall] Gabapentin 800 mg PO TID 04/26/21 04/27/21 Ibuprofen [Motrin] 800 mg PO TID PRN 04/26/21 04/27/21 Lisdexamfetamine Dimesylate 30 mg PO DAILY 04/26/21 04/27/21 [Vyvanse] [place] Carbonate ER [Lithobid] 900 mg PO HS 04/26/21 04/27/21 [place] Carbonate [Corcoran 300 mg PO DAILY 04/26/21 04/27/21 Carbonate ER] Oxybutynin ER [Ditropan Xl] 10 mg PO DAILY 04/26/21 04/27/21 buPROPion HCL [Wellbutrin XL] 300 mg PO DAILY 04/26/21 04/27/21 Previous Rx's Medication Instructions Recorded Nicotine 14Mg/24Hr Patch [Habitrol] 1 patch TRANSDERM DAILY #14 patch 04/30/21 Allergies/Adverse Reactions: Allergies Allergy/AdvReac Type Severity Reaction Status Date / Time gluten Allergy Abcesses Verified 04/27/21 22:41 latex Allergy Rash/Hives Verified 04/27/21 22:41 sumatriptan succinate Allergy Anaphylaxis Verified 04/27/21 22:41 [From Imitrex] Review of Systems ROS Statement: Those systems with pertinent positive or pertinent negative responses have been documented in the HPI. ROS Other: All systems not noted in ROS Statement are negative. Constitutional: Denies: fever, chills Eyes: Denies: eye pain, vision change ENT: Denies: ear pain, throat pain, hearing loss, congestion Respiratory: Denies: cough, dyspnea Cardiovascular: Denies: chest pain, palpitations Gastrointestinal: Denies: abdominal pain, vomiting, diarrhea Genitourinary: Denies: urgency, dysuria, frequency, hematuria Musculoskeletal: Denies: back pain Skin: Denies: rash, lesions Neurological: Reports: headache. Denies: weakness, numbness Psychiatric: Reports: anxiety. Denies: suicidal thoughts General Exam Limitations: no limitations General appearance: alert, anxious Head exam: Present: atraumatic, normocephalic Eye exam: Present: normal appearance, nystagmus. Absent: scleral icterus, conjunctival injection ENT exam: Present: mucous membranes dry Neck exam: Present: full ROM Respiratory exam: Present: normal lung sounds bilaterally. Absent: respiratory distress, wheezes, rales, rhonchi, stridor Cardiovascular Exam: Present: normal rhythm, tachycardia, normal heart sounds. Absent: systolic murmur, diastolic murmur, rubs, gallop GI/Abdominal exam: Present: soft. Absent: distended, tenderness, guarding, rebound, rigid, mass Extremities exam: Present: normal inspection, normal capillary refill. Absent: pedal edema, calf tenderness Back exam: Present: normal inspection. Absent: CVA tenderness (R), CVA tenderness (L) Neurological exam: Present: alert, oriented X3, other (Patient has very mild left facial weakness). Absent: motor sensory deficit Skin exam: Present: warm, dry, intact, normal color. Absent: rash Stroke MDM - Lab Data Result diagrams: 04/27/21 20:51 04/27/21 20:51 Lab Results 04/27/21 04/27/21 04/27/21 Range/Units 20:17 20:51 20:51 WBC 10.2 (3.8-10.6) k/uL RBC 5.12 (3.80-5.40) m/uL Hgb 12.0 (11.4-16.0) gm/dL Hct 39.3 (34.0-46.0) % MCV 76.7 L (80.0-100.0) fL MCH 23.4 L (25.0-35.0) pg MCHC 30.5 L (31.0-37.0) g/dL RDW 18.0 H (11.5-15.5) % Plt Count 431 (150-450) k/uL MPV 7.3 Neutrophils % 64 % Lymphocytes % 27 % Monocytes % 4 % Eosinophils % 3 % Basophils % 0 % Neutrophils # 6.6 (1.3-7.7) k/uL Lymphocytes # 2.7 (1.0-4.8) k/uL Monocytes # 0.4 (0-1.0) k/uL Eosinophils # 0.3 (0-0.7) k/uL Basophils # 0.0 (0-0.2) k/uL Hypochromasia Marked Anisocytosis Slight Microcytosis Slight Sodium 139 (137-145) mmol/L Potassium 3.8 (3.5-5.1) mmol/L Chloride 110 H (98-107) mmol/L Carbon Dioxide 21 L (22-30) mmol/L Anion Gap 8 mmol/L BUN 10 (7-17) mg/dL Creatinine 0.95 (0.52-1.04) mg/dL Est GFR (CKD-EPI)AfAm 88 (>60 ml/min/1.73 sqM) Est GFR (CKD-EPI)NonAf 77 (>60 ml/min/1.73 sqM) Glucose 127 H (74-99) mg/dL Calcium 9.5 (8.4-10.2) mg/dL Total Bilirubin 0.1 L (0.2-1.3) mg/dL AST 24 (14-36) U/L ALT 38 H (4-34) U/L Alkaline Phosphatase 72 (38-126) U/L Total Protein 6.4 (6.3-8.2) g/dL Albumin 3.9 (3.5-5.0) g/dL Urine Color Urine Appearance (Clear) Urine pH (5.0-8.0) Ur Specific Watkins (1.001-1.035) Urine Protein (Negative) Urine Glucose (UA) (Negative) Urine Ketones (Negative) Urine Blood (Negative) Urine Nitrite (Negative) Urine Bilirubin (Negative) Urine Urobilinogen (<2.0) mg/dL Ur Leukocyte Esterase (Negative) Urine RBC (0-5) /hpf Urine WBC (0-5) /hpf Ur Squamous Epith Cells (0-4) /hpf Calcium Oxalate Crystal (None) /hpf Urine Bacteria (None) /hpf Urine Mucus (None) /hpf Urine Opiates Screen (NotDetected) Ur Oxycodone Screen (NotDetected) Urine Methadone Screen (NotDetected) Ur Propoxyphene Screen (NotDetected) Ur Barbiturates Screen (NotDetected) U Tricyclic Antidepress (NotDetected) Ur Phencyclidine Scrn (NotDetected) Ur Amphetamines Screen (NotDetected) U Methamphetamines Scrn (NotDetected) U Benzodiazepines Scrn (NotDetected) [place] 0.6 mmol/L Urine Cocaine Screen (NotDetected) U Marijuana (THC) Screen (NotDetected) 04/27/21 Range/Units 20:51 WBC (3.8-10.6) k/uL RBC (3.80-5.40) m/uL Hgb (11.4-16.0) gm/dL Hct (34.0-46.0) % MCV (80.0-100.0) fL MCH (25.0-35.0) pg MCHC (31.0-37.0) g/dL RDW (11.5-15.5) % Plt Count (150-450) k/uL MPV Neutrophils % % Lymphocytes % % Monocytes % % Eosinophils % % Basophils % % Neutrophils # (1.3-7.7) k/uL Lymphocytes # (1.0-4.8) k/uL Monocytes # (0-1.0) k/uL Eosinophils # (0-0.7) k/uL Basophils # (0-0.2) k/uL Hypochromasia Anisocytosis Microcytosis Sodium (137-145) mmol/L Potassium (3.5-5.1) mmol/L Chloride (98-107) mmol/L Carbon Dioxide (22-30) mmol/L Anion Gap mmol/L BUN (7-17) mg/dL Creatinine (0.52-1.04) mg/dL Est GFR (CKD-EPI)AfAm (>60 ml/min/1.73 sqM) Est GFR (CKD-EPI)NonAf (>60 ml/min/1.73 sqM) Glucose (74-99) mg/dL Calcium (8.4-10.2) mg/dL Total Bilirubin (0.2-1.3) mg/dL AST (14-36) U/L ALT (4-34) U/L Alkaline Phosphatase (38-126) U/L Total Protein (6.3-8.2) g/dL Albumin (3.5-5.0) g/dL Urine Color Yellow Urine Appearance Cloudy H (Clear) Urine pH 5.5 (5.0-8.0) Ur Specific Watkins 1.021 (1.001-1.035) Urine Protein Negative (Negative) Urine Glucose (UA) Negative (Negative) Urine Ketones Negative (Negative) Urine Blood Small H (Negative) Urine Nitrite Negative (Negative) Urine Bilirubin Negative (Negative) Urine Urobilinogen <2.0 (<2.0) mg/dL Ur Leukocyte Esterase Negative (Negative) Urine RBC 1 (0-5) /hpf Urine WBC 4 (0-5) /hpf Ur Squamous Epith Cells 4 (0-4) /hpf Calcium Oxalate Crystal Few H (None) /hpf Urine Bacteria Rare H (None) /hpf Urine Mucus Moderate H (None) /hpf Urine Opiates Screen Not Detected (NotDetected) Ur Oxycodone Screen Not Detected (NotDetected) Urine Methadone Screen Not Detected (NotDetected) Ur Propoxyphene Screen Not Detected (NotDetected) Ur Barbiturates Screen Not Detected (NotDetected) U Tricyclic Antidepress Not Detected (NotDetected) Ur Phencyclidine Scrn Not Detected (NotDetected) Ur Amphetamines Screen Detected H (NotDetected) U Methamphetamines Scrn Not Detected (NotDetected) U Benzodiazepines Scrn Not Detected (NotDetected) [place] mmol/L Urine Cocaine Screen Not Detected (NotDetected) U Marijuana (THC) Screen Detected H (NotDetected) Past Medical History Past Medical History: CVA/TIA, Fibromyalgia, Hypertension, Osteoarthritis (OA), Thyroid Disorder Additional Past Medical History / Comment(s): SCOLIOSIS. CVA with R sided paralysis which resolved, bilateral TMJ, PCOS, pitted thyroid, migraines, DDD, ruptured disc, chronic low back pain/sciatica, occasional cervical pain. Irregular periods, "some months I don't have a period, other months I will have bleeding for 3 weeks or more." History of Any Multi-Drug Resistant Organisms: MRSA Date of last positivie culture/infection: 2012 MDRO Source:: LEFT BUTTOCK Past Surgical History: Appendectomy, Cholecystectomy, Orthopedic Surgery Additional Past Surgical History / Comment(s): R ankle-replaced tendon, PAIN CLINIC PROCEDURES, EGD. Past Anesthesia/Blood Transfusion Reactions: No Reported Reaction Type of Cardiac Device: Unknown Device Placement Date:: unk Past Psychological History: ADD/ADHD, Anxiety, Bipolar, Depression Smoking Status: Current every day smoker Past Alcohol Use History: None Reported Past Drug Use History: Marijuana, Methamphetamine - Past Family History Mother Family Medical History: CVA/TIA, Musculoskeletal Disorder Additional Family Medical History / Comment(s): Mother has had CVAs and TIAs and has DDD. Father Family Medical History: CVA/TIA Additional Family Medical History / Comment(s): Father from a brain stem infarct at the age of 64yrs. Course Vital Signs 04/27/21 04/28/21 04/28/21 20:36 01:45 05:57 Temperature 98.1 F 98.1 F Pulse Rate 89 70 68 Respiratory 18 18 18 Rate Blood Pressure 151/105 122/67 136/99 O2 Sat by Pulse 99 99 98 Oximetry 04/28/21 04/28/21 08:49 11:24 Temperature 97.8 F 97.8 F Pulse Rate 80 78 Respiratory 18 18 Rate Blood Pressure 136/103 147/101 O2 Sat by Pulse 98 97 Oximetry Disposition Clinical Impression: Facial weakness Disposition: ADMITTED IP TO THIS HOSP Condition: Fair Is patient prescribed a controlled substance at d/c from ED?: No
[2021-04-28] MEDS: NON FORMULARY DRUG (Lisdexamfetamine Dimesylate [Vyvanse] 30 MG Capsule) PO SCH (08:25)
[2021-04-28] MEDS: GABAPENTIN 400 MG CAP PO SCH ×3 (08:45→21:53)
[2021-04-28] MEDS: clonazePAM 0.5 MG TAB PO SCH ×2 (08:46→21:52)
[2021-04-28] MEDS: OXYBUTYNIN 10 MG TAB.ER.24 PO SCH (08:46)
[2021-04-28] MEDS: CYCLOBENZAPRINE 10 MG TAB PO SCH ×2 (08:46→21:52)
[2021-04-28] MEDS: cloNIDine HCL 0.1 MG TAB PO SCH ×3 (08:46→21:53)
[2021-04-28] MEDS: FAMOTIDINE 20 MG TAB PO SCH ×2 (08:46→21:53)
[2021-04-28] MEDS: buPROPion XL 300 MG TAB.ER.24H PO SCH (08:47)
[2021-04-28] MEDS: TOPIRAMATE 100 MG TAB PO SCH (08:47)
[2021-04-28] MEDS: NICOTINE 14MG/24HR PATCH TRANSDERM SCH (08:47)
[2021-04-28] MEDS: NON FORMULARY DRUG (Lithium Carbonate [Lithium Carbonate Er] 300 MG Tablet) PO SCH (08:48)
--- NOTE | 2021-04-28 13:54 | P.CNNES ---
History of Present Illness Consult date: 04/28/21 Requesting physician: Sebastian Bob Reason for Consult: Left facial weakness History of Present Illness: Patient is a 36-year-old female came to the hospital yesterday at 7:52 PM for facial droop and some speech difficulty. Patient states that about 3 days ago on 04/25/2021 in the evening she was getting ready to go to a friend's house, when she looked herself on the mirror, and when she smiled, noticed dr oopiness of left side of the face. Her left eye felt slow to close, not at the same pace as the right. She did not have any speech difficulty or any other focal symptoms whatsoever. Patient came to the ER on 04/26/2021 where she underwent some testing including CTA of head and neck which were normal. She was recommended to start aspirin 325 mg daily and was sent home to follow-up with a neurologist. Patient states that yesterday at around 1 PM, she noticed speech difficulty when she was stuttering, hard time processing and hard time putting words together in her head. Therefore she got concerned and decided to come to the ER for evaluation. She denied any focal numbness tingling weakness problem with the balance, double vision or loss of vision. She is noticing some blurred vision from the right eye. Also noticing some drooling from the right corner of the mouth. Patient says that she has been suffering from headaches involving bifrontal region, left temporal and left occipital region off and on for last 2 weeks. It resolves with Tylenol but would come back. Vital signs on arrival blood pressure 151/105, pulse 89, temperature 98.1. The blood pressure improved to 122/67. Patient's blood test shows normal electrolytes, BU and and creatinine are normal. AST is 24, ALT minimally elevated 38. CBC is normal with low MCV 76.7. UA negative. Urine drug screen positive for amphetamines and marijuana. Blood lithium level 0.6. Guzman virus PCR negative. CT head is normal. Patient had a CTA of head and neck performed 04/26/2021 which revealed no large vessel occlusion, hemodynamically significant stenosis or aneurysm in the head or neck. Chest x-ray showed no acute cardiopulmonary process. Patient states that at that time she feels that she is not fumbling or stuttering or speech difficulty although the processing time in the head is still a problem. Patient's home medications include clonidine 0.1 mg 3 times a day, Flexeril, clonazepam, Topamax 100 mg daily, Vyvanse 30 mg, Vraylar, lithium 300 mg in the morning and 900 mg at bedtime, gabapentin 800 mg 3 times a day, Wellbutrin 300 mg daily and Adderall 5 mg daily. She has been taking Topamax to have weight loss and has lost 50 pounds with it. Patient states that she suffered from a stroke at age 16 related to complications of Vioxx and Depo shot. She was paralyzed on the right side, w hich recovered in almost a year. She has history of migraines. She has hypertension for 2 years, denies diabetes. Patient has smoked one pack of reds since age 18. Only in the last 1 year she has cut back to smoking half pack per day of lights . She drinks very very very occasionally. She takes marijuana which helps with her back pain related to degenerative disc disease. She has ADHD. Patient states that her mother has a diagnosis of MS, on disability for MS. Review of Systems As mentioned above in detail. All other 14 point review of systems reviewed and are unremarkable. Patient denies any hyperacusis or alteration of change of taste sensation. When I asked if she has some metallic taste in her mouth, states "yes, occurs off and on". He is noticing drooling from right corner of the mouth. Past Medical History Past Medical History: CVA/TIA, Fibromyalgia, Hypertension, Osteoarthritis (OA), Thyroid Disorder Additional Past Medical History / Comment(s): SCOLIOSIS. CVA with R sided paralysis which resolved, bilateral TMJ, PCOS, pitted thyroid, migraines, DDD, ruptured disc, chronic low back pain/sciatica, occasional cervical pain. Irregular periods, "some months I don't have a period, other months I will have bleeding for 3 weeks or more." History of Any Multi-Drug Resistant Organisms: MRSA Date of last positivie culture/infection: 2012 MDRO Source:: LEFT BUTTOCK Past Surgical History: Appendectomy, Cholecystectomy, Orthopedic Surgery Additional Past Surgical History / Comment(s): R ankle-replaced tendon, PAIN CLINIC PROCEDURES, EGD. Past Anesthesia/Blood Transfusion Reactions: No Reported Reaction Type of Cardiac Device: Unknown Device Placement Date:: unk Past Psychological History: ADD/ADHD, Anxiety, Bipolar, Depression Smoking Status: Current every day smoker Past Alcohol Use History: None Reported Past Drug Use History: Marijuana, Methamphetamine - Past Family History Mother Family Medical History: CVA/TIA, Musculoskeletal Disorder Additional Family Medical History / Comment(s): Mother has had CVAs and TIAs and has DDD. Father Family Medical History: CVA/TIA Additional Family Medical History / Comment(s): Father from a brain stem infarct at the age of 64yrs. Medications and Allergies Home Medications Medication Instructions Recorded Confirmed Type cloNIDine HCL [Catapres] 0.1 mg PO TID 01/17/18 04/27/21 History Cyclobenzaprine [Flexeril] 10 mg PO BID 04/28/20 04/27/21 History clonazePAM [KlonoPIN] 0.5 mg PO BID 04/28/20 04/27/21 History Topiramate [Topamax] 100 mg PO DAILY 02/06/21 04/27/21 History Albuterol Sulfate [Proair Hfa] 2 puff INHALATION RT-QID PRN 04/26/21 04/27/21 History Cariprazine HCl [Vraylar] 6 mg PO HS 04/26/21 04/27/21 History Dextroamphetamine/Amphetamine 5 mg PO DAILY@1330 04/26/21 04/27/21 History [Adderall] Gabapentin 800 mg PO TID 04/26/21 04/27/21 History Ibuprofen [Motrin] 800 mg PO TID PRN 04/26/21 04/27/21 History Lisdexamfetamine Dimesylate 30 mg PO DAILY 04/26/21 04/27/21 History [Vyvanse] [place] Carbonate ER [Lithobid] 900 mg PO HS 04/26/21 04/27/21 History [place]in Carbonate [Lankin 300 mg PO DAILY 04/26/21 04/27/21 History Carbonate ER] Oxybutynin ER [Ditropan Xl] 10 mg PO DAILY 04/26/21 04/27/21 History buPROPion HCL [Wellbutrin XL] 300 mg PO DAILY 04/26/21 04/27/21 History Allergies Allergy/AdvReac Type Severity Reaction Status Date / Time gluten Allergy Abcesses Verified 04/27/21 22:41 latex Allergy Rash/Hives Verified 04/27/21 22:41 sumatriptan succinate Allergy Anaphylaxis Verified 04/27/21 22:41 [From Imitrex] Physical Examination - Vital Signs Vital Signs: Vital Signs Temp Pulse Resp BP Pulse Ox 04/28/21 08:49 97.8 F 80 18 136/103 98 04/28/21 05:57 68 18 136/99 98 04/28/21 01:45 98.1 F 70 18 122/67 99 04/27/21 20:36 98.1 F 89 18 151/105 99 Intake and Output 04/27/21 04/28/21 04/28/21 22:59 06:59 14:59 Other: Weight 95.254 kg Patient is a young female, in no acute distress. Patient is alert awake oriented to time place and person. Speech and language functions are normal. Patient can name and repeat very well. No aphasia or dysarthria. Attention, concentration and fund of knowledge is adequate. On cranial examination, pupils are round and reacting to light, visual núñez are full on confrontation with no neglect on double simultaneous stimulation, extraocular muscles are intact with no nystagmus. Patient has right facial weakness, which is central type, with sparing of the forehead region. Her tongue protrudes to the midline. Palatal elevation and sensation normal, hearing and shoulder shrug normal, facial sensation normal. Shoulder shrug normal. On muscle strength testing, there is very mild right pronator drift and the strength is normal in arms and legs distally and proximally. Deep tendon reflexes are (right/left) biceps 1+/2, brachioradialis 1+/2, knee 1/1, ankle trace/trace and plantars downgoing bilaterally. Sensory to touch is equal with no neglect on double simultaneous stimulation. Cerebellar function showed no ataxia for [id number] testing. No dysdiadochokinesia. Tone and bulk of muscles normal. Gait normal. On general examination, there is no carotid bruit or murmur, S1-S2 audible. Abdomen is soft nontender. Chest is clear. Peripheral pulses are present. No edema. Results - Laboratory Findings CBC and BMP: 04/27/21 20:51 04/27/21 20:51 Abnormal Lab Findings: Abnormal Labs 04/27/21 04/27/21 04/27/21 20:51 20:51 20:51 MCV 76.7 L MCH 23.4 L MCHC 30.5 L RDW 18.0 H Chloride 110 H Carbon Dioxide 21 L Glucose 127 H Total Bilirubin 0.1 L ALT 38 H Urine Appearance Cloudy H Urine Blood Small H Calcium Oxalate Crystal Few H Urine Bacteria Rare H Urine Mucus Moderate H Ur Amphetamines Screen Detected H U Marijuana (THC) Screen Detected H Assessment and Plan Assessment: * New-onset right facial weakness, which somewhat appears central type, with sparing of the forehead muscles. Patient also complaining of some speech difficulty, rule out CVA versus atypical presentation of Martin's palsy. * Hypertension * Tobacco use * Marijuana use * ADD Plan: * MRI of the brain with and without contrast, evaluate for CVA, rule out any demyelinating disease like MS. * CTA of head and neck showed no large vessel disease, or significant stenosis or aneurysm. * Continue aspirin 325 mg daily for now. * Further management based upon results of MRI. Neurology will follow. * Thank you for the consult.
--- NOTE | 2021-04-28 15:22 | MR ---
EXAMINATION TYPE: MR brain wo/w con DATE OF EXAM: 04/28/2021 COMPARISON: CT brain 04/27/2021 HISTORY: CVA VS Olive Palsy. History of seizures TECHNIQUE: Multiplanar, multisequence images of the brain and brainstem is performed without and with IV contras t, utilizing 9.5 mL intravenous Gadavist . FINDINGS: Diffusion weighted images demonstrate no evidence of a recent infarct or other diffusion ab normality. There is no extra-axial fluid collection. Pericallosal, periventricular and deep white m atter hyperintensities are present on the inversion recovery T2-weighted sequences from approximately 10-15 lesions are present, the largest on axial image 22 in the right frontal deep white matter reynaldo uring approximately 5 to 6 mm. The ventricular system and cisternal spaces are normal in size and latosha earance. The brain volume is age appropriate. Midline structures demonstrate normal morphology. The craniocervical junction appears within normal limits. Post contrast images demonstrate no abnormal enhancement. The dural venous sinuses appear pa tent. The visualized sinuses are clear and the globes are intact. IMPRESSION: Nonspecific white matter demyelination, consider multiple sclerosis, migraine headaches, hypertension, vasculitis, Lyme disease
--- NOTE | 2021-04-28 20:07 | P.HPIM ---
History of Present Illness H&P Date: 04/28/21 Chief Complaint: Face feeling funny This is a pleasant 36-year-old patient, follows with Dr. Ciaran Ramirez. Chronic stable medical conditions include fibromyalgia, hypertension, osteoarthritis, hypothyroid, scoliosis, bilateral TMJ, polycystic ovarian syndrome, chronic low back sciatica, irregular menstrual periods. Patient presented to the ER. Patient about 3 days ago she was looking at something the matter she noticed that she was drooping the left side of the face. Left eye feels slow to close. She came to the ER the following day. Had a CT of the head and neck that was unremarkable. Started on aspirin and was to go home follow-up with urologist. Yesterday in the afternoon she noticed that she has some difficulty with speech and is was slow. And she is finding it difficult to process things. In putting words together. And decided to come back to the ER. There is no double vision. No weakness in the arms or legs. She did feel some funny feeling on the right side of the face. For 2 weeks she been having some headaches 2. Review of systems: GEN.: Tired EYES: None HEENT: [As above NECK: None RESPIRATORY: None CARDIOVASCULAR: None GASTROINTESTINAL: None GENITOURINARY: None MUSCULOSKELETAL: Muscle and joint pains LYMPHATICS: None HEMATOLOGICAL: None PSYCHIATRY: None NEUROLOGICAL: As above Past medical history to include: Fibromyalgia, hypertension, hypothyroid, scoliosis, some right-sided weakness in the past with resolved PCO S, TMJ, irregular menstrual cycles. Bipolar disorder. Social history: Lives with her sadaf Corona. Smokes at least one joint a day. Smokes anywhere from half to a pack a day. She does use amphetamines intermittently. Family history: Mother had strokes and TIAs. Physical examination: VITAL SIGNS: 98.1, 69, 18, 151/105, 99% room air upon presentation GENERAL: BMI 33.9, reclining bed, awake started distress. EYES: Pupils equal. Conjunctiva normal. HEENT: External appearance of nose and ears normal, oral cavity grossly normal. NECK: JVD not raised; masses not palpable. HEART: First and second heart sounds are normal; no edema. LUNGS: Respiratory rate normal; clear to auscultation. ABDOMEN: Soft, nontender, liver spleen not palpable, no masses palpable. PSYCH: Alert and oriented x3; mood and affect normal. NEUROLOGICAL: Mild slightly pulled to the left. Difficulty closing the right eye fully. Limb examination unremarkable.. LYMPHATICS: No lymph nodes palpable in the axilla and neck INVESTIGATIONS, reviewed in the clinical context: White count 10.2 hemoglobin 12 platelets 431 sodium 139 potassium 3.8 creatinine 0.95 Urine reduction positive for amphetamines. Marijuana. Coronavirus [PCR]: Not detected Computed tomography scan of the brain without contrast: Negative Assessment and plan: -This patient presents with headache on and off for 2 weeks. Right facial weakness. Some changes speech. Difficulty finding words. This could be a stroke. Initial computed tomography scan was unremarkable. Will need an MRI. Neurology consulted. -Obesity BMI 33.9 Weight loss measures. Follow with PCP. -Chronic fibromyalgia Gabapentin 800 mg 3 times a day. Flexeril 10 mg twice a day -Essential hypertension Catapres 0.1 mg 3 times a day -Bipolar disorder in remission Topamax 100 mg daily. TMs 900 mg daily at bedtime and 3 mg the morning,vyvanase 30 mg daily Wellbutrin 300 mg daily -Chronic nicotine dependence cigarette smoker Nicotine patch Home medications resumed. Consult neurology. MRI. 2-D echo. Carotid Doppler. Aspirin. Subcu Lovenox. Care was discussed with the patient. -Decreased to marijuana use -Use of methamphetamines. Past Medical History Past Medical History: CVA/TIA, Fibromyalgia, Hypertension, Osteoarthritis (OA), Thyroid Disorder Additional Past Medical History / Comment(s): SCOLIOSIS. CVA with R sided paralysis which resolved, bilateral TMJ, PCOS, pitted thyroid, migraines, DDD, ruptured disc, chronic low back pain/sciatica, occasional cervical pain. Irr egular periods, "some months I don't have a period, other months I will have bleeding for 3 weeks or more." History of Any Multi-Drug Resistant Organisms: MRSA Date of last positivie culture/infection: 2012 MDRO Source:: LEFT BUTTOCK Past Surgical History: Appendectomy, Cholecystectomy, Orthopedic Surgery Additional Past Surgical History / Comment(s): R ankle-replaced tendon, PAIN CLINIC PROCEDURES, EGD. Past Anesthesia/Blood Transfusion Reactions: No Reported Reaction Type of Cardiac Device: Unknown Device Placement Date:: unk Past Psychological History: ADD/ADHD, Anxiety, Bipolar, Depression Smoking Status: Current every day smoker Past Alcohol Use History: None Reported Past Drug Use History: Marijuana, Methamphetamine - Past Family History Mother Family Medical History: CVA/TIA, Musculoskeletal Disorder Additional Family Medical History / Comment(s): Mother has had CVAs and TIAs and has DDD. Father Family Medical History: CVA/TIA Additional Family Medical History / Comment(s): Father from a brain stem infarct at the age of 64yrs. Medications and Allergies Home Medications Medication Instructions Recorded Confirmed Type cloNIDine HCL [Catapres] 0.1 mg PO TID 01/17/18 04/27/21 History Cyclobenzaprine [Flexeril] 10 mg PO BID 04/28/20 04/27/21 History clonazePAM [KlonoPIN] 0.5 mg PO BID 04/28/20 04/27/21 History Topiramate [Topamax] 100 mg PO DAILY 02/06/21 04/27/21 History Albuterol Sulfate [Proair Hfa] 2 puff INHALATION RT-QID PRN 04/26/21 04/27/21 History Cariprazine HCl [Vraylar] 6 mg PO HS 04/26/21 04/27/21 History Dextroamphetamine/Amphetamine 5 mg PO DAILY@1330 04/26/21 04/27/21 History [Adderall] Gabapentin 800 mg PO TID 04/26/21 04/27/21 History Ibuprofen [Motrin] 800 mg PO TID PRN 04/26/21 04/27/21 History Lisdexamfetamine Dimesylate 30 mg PO DAILY 04/26/21 04/27/21 History [Vyvanse] Dean Carbonate ER [Lithobid] 900 mg PO HS 04/26/21 04/27/21 History Dean Carbonate [Dean 300 mg PO DAILY 04/26/21 04/27/21 History Carbonate ER] Oxybutynin ER [Ditropan Xl] 10 mg PO DAILY 04/26/21 04/27/21 History buPROPion HCL [Wellbutrin XL] 300 mg PO DAILY 04/26/21 04/27/21 History Allergies Allergy/AdvReac Type Severity Reaction Status Date / Time gluten Allergy Abcesses Verified 04/27/21 22:41 latex Allergy Rash/Hives Verified 04/27/21 22:41 sumatriptan succinate Allergy Anaphylaxis Verified 04/27/21 22:41 [From Imitrex] Physical Exam Vitals: Vital Signs Temp Pulse Resp BP Pulse Ox 04/28/21 08:49 97.8 F 80 18 136/103 98 04/28/21 05:57 68 18 136/99 98 04/28/21 01:45 98.1 F 70 18 122/67 99 04/27/21 20:36 98.1 F 89 18 151/105 99 Intake and Output 04/27/21 04/28/21 04/28/21 22:59 06:59 14:59 Other: Weight 95.254 kg Results CBC & Chem 7: 04/27/21 20:51 04/27/21 20:51 Labs: Abnormal Lab Results - Last 24 Hours (Table) 04/27/21 04/27/21 04/27/21 Range/Units 20:51 20:51 20:51 MCV 76.7 L (80.0-100.0) fL MCH 23.4 L (25.0-35.0) pg MCHC 30.5 L (31.0-37.0) g/dL RDW 18.0 H (11.5-15.5) % Chloride 110 H (98-107) mmol/L Carbon Dioxide 21 L (22-30) mmol/L Glucose 127 H (74-99) mg/dL Total Bilirubin 0.1 L (0.2-1.3) mg/dL ALT 38 H (4-34) U/L Urine Appearance Cloudy H (Clear) Urine Blood Small H (Negative) Calcium Oxalate Crystal Few H (None) /hpf Urine Bacteria Rare H (None) /hpf Urine Mucus Moderate H (None) /hpf Ur Amphetamines Screen Detected H (NotDetected) U Marijuana (THC) Screen Detected H (NotDetected)
[2021-04-28] MEDS: predniSONE 20 MG TAB PO SCH (21:53)
[2021-04-28] MEDS: LITHIUM CARBONATE ER 450 MG TABLET.ER PO SCH (21:53)
[2021-04-28] MEDS: valACYclovir HCL 1,000 MG TABLET PO SCH (21:53)
--- NOTE | 2021-04-28 22:17 | US ---
EXAMINATION TYPE: US carotid duplex BILAT DATE OF EXAM: 04/28/2021 COMPARISON: CTa, MR CLINICAL HISTORY: Right facial weakness. Right facial weakness, hypertension. EXAM MEASUREMENTS: RIGHT: Peak Systolic Velocity (PSV) cm/sec ----- Right CCA: 79.5 ----- Right ICA: 88.3 ----- Right ECA: 96.5 ICA/CCA ratio: 1.1 RIGHT: End Diastole cm/sec ----- Right CCA: 20.1 ----- Right ICA: 35.5 ----- Right ECA: 21.5 LEFT: Peak Systolic Velocity (PSV) cm/sec ----- Left CCA: 84.3 ----- Left ICA: 81.0 ----- Left ECA: 122.0 ICA/CCA ratio: 1.0 LEFT: End Diastole cm/sec ----- Left CCA: 24.1 ----- Left ICA: 26.7 ----- Left ECA: 26.3 VERTEBRALS (direction of flow): Right Vertebral: Antegrade Left Vertebral: Antegrade Rhythm: Normal Intimal thickening seen bilaterally. No elevated velocities at this time. *Exam is limited due to pat ient's constant snoring. Hypoechoic area with hyperechoic center seen right neck: 3.1 x 2.2 x 1.0 cm. Hypoechoic area with hyperechoic center seen left neck: 1.9 x 1.5 x 0.8 cm. IMPRESSION: There is antegrade flow in the vertebral arteries. The images and measurements suggest less than 25% stenosis in both internal carotid arteries. Criteria for Assigning % of Stenosis / Diameter reduction (Estimation based on the indirect measurements of the internal carotid artery velocities (ICA PSV). 1. Normal (no stenosis)=ICA PSV < 125 cm/s: ratio < 2.0: ICA EDV<40 cm/s. 2. Less than 50% stenosis=ICA PSV < 125 cm/s: ratio < 2.0: ICA EDV<40 cm/s. 3. 50 to 69% stenosis=ICA PSV of 125 to 230 cm/s: ration 2.0 ? 4.0: ICA EDV 40-100 cm/s. 4. Greater than 70% stenosis to near occlusion= ICA PSV > 230 cm/s: ratio > 4.0: ICA EDV > 100 cm/s. 5. Near occlusion= ICA PSV velocities may be low or undetectable: variable ratio and ICA EDV. 6. Total occlusion=unable to detect flow.
[2021-04-28] MEDS: NON FORMULARY DRUG (Cariprazine Hcl [Vraylar] 6 MG Capsule) PO SCH (22:42)
[2021-04-29] MEDS: cloNIDine HCL 0.1 MG TAB PO SCH ×3 (09:22→20:32)
[2021-04-29] MEDS: valACYclovir HCL 1,000 MG TABLET PO SCH ×3 (09:23→20:31)
[2021-04-29] MEDS: NICOTINE 14MG/24HR PATCH TRANSDERM SCH (09:23)
[2021-04-29] MEDS: predniSONE 20 MG TAB PO SCH (09:24)
[2021-04-29] MEDS: FAMOTIDINE 20 MG TAB PO SCH ×2 (09:24→20:31)
[2021-04-29] MEDS: buPROPion XL 300 MG TAB.ER.24H PO SCH (09:25)
[2021-04-29] MEDS: clonazePAM 0.5 MG TAB PO SCH ×2 (09:25→20:31)
[2021-04-29] MEDS: GABAPENTIN 400 MG CAP PO SCH ×3 (09:25→20:32)
[2021-04-29] MEDS: OXYBUTYNIN 10 MG TAB.ER.24 PO SCH (09:25)
[2021-04-29] MEDS: ASPIRIN 325 MG TAB PO SCH (09:25)
[2021-04-29] MEDS: CYCLOBENZAPRINE 10 MG TAB PO SCH ×2 (09:25→20:33)
[2021-04-29] MEDS: TOPIRAMATE 100 MG TAB PO SCH (09:25)
[2021-04-29] MEDS: NON FORMULARY DRUG (Lithium Carbonate [Lithium Carbonate Er] 300 MG Tablet) PO SCH (09:28)
[2021-04-29] MEDS: NON FORMULARY DRUG (Lisdexamfetamine Dimesylate [Vyvanse] 30 MG Capsule) PO SCH (09:28)
[2021-04-29 11:16] LABS: Chol/HDL Ratio 4.31 Ratio; LDL Cholesterol,Calculated 129.1 mg/dL (0.0-131.0)
--- NOTE | 2021-04-29 12:00 | ECHOF ---
Referral Reason:Rule out thrombus MEASUREMENTS -------- HEIGHT: 167.6 cm WEIGHT: 95.3 kg BP: RVIDd: 2.6 cm (< 3.3) IVSd: 1.4 cm (0.6 - 1.1) LVIDd: 3.3 cm (3.9 - 5.3) LVPWd: 1.5 cm (0.6 - 1.1) IVSs: 2.0 cm LVIDs: 1.9 cm LVPWs: 1.7 cm Ao Diam: 3.2 cm (2.0 - 3.7) AV Cusp: 2.1 cm (1.5 - 2.6) LA Diam: 2.7 cm (2.7 - 3.8) MV EXCURSION: 17.007 mm (> 18.000) MV EF SLOPE: 48 mm/s (70 - 150) EPSS: 0.7 cm MV E Cheo: 0.74 m/s MV DecT: 154 ms MV A Cheo: 0.74 m/s MV E/A Ratio: 1.00 RAP: 5.00 mmHg RVSP: 11.59 mmHg FINDINGS -------- This was a technically adequate study. The left ventricular size is normal. There is moderate concentric left ventricular hypertrophy. O verall left ventricular systolic function is normal with, an EF between 55 - 60 %. The diastolic fi lling pattern is normal for the age of the patient 10.27. The right ventricle is normal in size. The left atrial size is normal. The right atrial size is normal. The aortic valve is trileaflet and appears structurally normal. The mitral valve is normal. There is trace mitral regurgitation. The tricuspid valve appears structurally normal. Trace tricuspid regurgitation present. Right annalee tricular systolic pressure is normal at < 35 mmHg. There is no pulmonic regurgitation present. The aortic root size is normal. Normal inferior vena cava with normal inspiratory collapse consistent with estimated right atrial pre ssure of 5 mmHg. There is no pericardial effusion. CONCLUSIONS -------- 1. The left ventricular size is normal. 2. There is moderate concentric left ventricular hypertrophy. 3. Overall left ventricular systolic function is normal with, an EF between 55 - 60 %. 4. The diastolic filling pattern is normal for the age of the patient 10.27 5. There is trace mitral regurgitation. 6. Trace tricuspid regurgitation present. 7. There is no pericardial effusion. SALT MANAGER: Aisha Dumont RDCS
--- NOTE | 2021-04-29 17:06 | P.PN ---
Progress Note - Text Progress Note Date: 04/29/21 Chief Complaint: Face feeling funny This is a pleasant 36-year-old patient, follows with Dr. Ciaran Ramirez. Chronic stable medical conditions include fibromyalgia, hypertension, osteoarthritis, hypothyroid, scoliosis, bilateral TMJ, polycystic ovarian syndrome, chronic low back sciatica, irregular menstrual periods. Patient presented to the ER. Patient about 3 days ago she was looking at something the matter she noticed that she was drooping the left side of the fa ce. Left eye feels slow to close. She came to the ER the following day. Had a CT of the head and neck that was unremarkable. Started on aspirin and was to go home follow-up with urologist. Yesterday in the afternoon she noticed that she has some difficulty with speech and is was slow. And she is finding it difficult to process things. In putting words together. And decided to come back to the ER. There is no double vision. No weakness in the arms or legs. She did feel some funny feeling on the right side of the face. For 2 weeks she been having some headaches 2. April 29: Some facial weakness is present. Mild headache is present. Discussed with Dr. Youssef from neurology. Given that patient had changes speech some headache and facial weakness and the findings on the MRI extremity with his differential of Lyme's disease versus ML/demyelinating disorder. Martin's palsy by itself does not seem to justify the clinical setting. It was decided to proceed with a lumbar puncture. Patient is keen to go home. I did discuss the importance of getting a lumbar puncture done. Patient is agreed to stay back and get the lumbar puncture which is now scheduled for the morning. Review of systems: Was done for constitutional, cardiovascular, GI, pulmonary. relevant finding as above Active Medications Acetaminophen (Acetaminophen Tab 325 Mg Tab) 650 mg PO Q6HR PRN PRN Reason: Pain Albuterol Sulfate (Albuterol Nebulized 2.5 Mg/3 Ml) 2.5 mg INHALATION RT-QID PRN PRN Reason: Shortness Of Breath Aspirin (Aspirin 325 Mg Tab) 325 mg PO DAILY [facility] Last Admin: 04/29/21 09:25 Dose: 325 mg Documented by: Bupropion HCl (Bupropion Xl 300 Mg Tab.Er.24h) 300 mg PO DAILY [facility] Last Admin: 04/29/21 09:25 Dose: 300 mg Documented by: Clonazepam (Clonazepam 0.5 Mg Tab) 0.5 mg PO BID [facility] Last Admin: 04/29/21 09:25 Dose: 0.5 mg Documented by: Clonidine (Clonidine Hcl 0.1 Mg Tab) 0.1 mg PO TID [facility] Last Admin: 04/29/21 16:27 Dose: 0.1 mg Documented by: Cyclobenzaprine HCl (Cyclobenzaprine 10 Mg Tab) 10 mg PO BID [facility] Last Admin: 04/29/21 09:25 Dose: 10 mg Documented by: Famotidine (Famotidine 20 Mg Tab) 20 mg PO BID [facility] Last Admin: 04/29/21 09:24 Dose: 20 mg Documented by: Gabapentin (Gabapentin 400 Mg Cap) 800 mg PO TID [facility] Last Admin: 04/29/21 16:20 Dose: 800 mg Documented by: Ibuprofen (Ibuprofen 800 Mg Tab) 800 mg PO TID PRN PRN Reason: Pain Last Admin: 04/28/21 08:55 Dose: 800 mg Documented by: Waymart Carbonate (Waymart Carbonate Er 450 Mg Tablet.Er) 900 mg PO [facility] Last Admin: 04/28/21 21:53 Dose: 900 mg Documented by: Nicotine (Nicotine 14mg/24hr Patch) 1 patch TRANSDERM DAILY [facility] Last Admin: 04/29/21 09:23 Dose: 1 patch Documented by: Non-Formulary Medication (Waymart Carbonate [Waymart Carbonate Er]) 300 mg PO DAILY [facility] Last Admin: 04/29/21 09:28 Dose: Not Given Documented by: Non-Formulary Medication (Lisdexamfetamine Dimesylate [Vyvanse]) 30 mg PO DAILY [facility] Last Admin: 04/29/21 09:28 Dose: Not Given Documented by: Non-Formulary Medication (Cariprazine Hcl [Vraylar]) 6 mg PO [facility] Last Admin: 04/28/21 22:42 Dose: Not Given Documented by: Oxybutynin Chloride (Oxybutynin 10 Mg Tab.Er.24) 10 mg PO DAILY [facility] Last Admin: 04/29/21 09:25 Dose: 10 mg Documented by: Prednisone (Prednisone 20 Mg Tab) 60 mg PO DAILY [facility] Last Admin: 04/29/21 09:24 Dose: 60 mg Documented by: Sodium Chloride (Sodium Chloride 0.9% Flush 10 Ml Syringe) 10 ml IV BID [facility] Last Admin: 04/29/21 09:26 Dose: 10 ml Documented by: Topiramate (Topiramate 100 Mg Tab) 100 mg PO DAILY [facility] Last Admin: 04/29/21 09:25 Dose: 100 mg Documented by: Valacyclovir HCl (Valacyclovir Hcl 1,000 Mg Tablet) 1,000 mg PO TID [facility] Last Admin: 04/29/21 16:27 Dose: 1,000 mg Documented by: Past medical history to include: Fibromyalgia, hypertension, hypothyroid, scoliosis, some right-sided weakness in the past with resolved PCO S, TMJ, irregular menstrual cycles. Bipolar disorder. Social history: Lives with her sadaf called Cj. Smokes at least one joint a day. Smokes anywhere from half to a pack a day. She does use amphetamines intermittently. Family history: Mother had strokes and TIAs. Physical examination: VITAL SIGNS: 98.5, 92, 16, 113/72, 97% room air GENERAL: reclining bed, awake EYES: Pupils equal. Conjunctiva normal. HEENT: External appearance of nose and ears normal, oral cavity grossly normal. NECK: JVD not raised; masses not palpable. HEART: First and second heart sounds are normal; no edema. LUNGS: Respiratory rate normal; clear to auscultation. ABDOMEN: Soft, nontender, liver spleen not palpable, no masses palpable. PSYCH: Alert and oriented x3; mood and affect normal. NEUROLOGICAL: Mouth slightly pulled to the left. Difficulty closing the right eye fully. Limb examination unremarkable.. INVESTIGATIONS, reviewed in the clinical context: 2-D echocardiogram: Moderate concentric LVH. EF 55-60%. Carotid Doppler: No stenosis reported MRI brain: Nonspecific white matter demyelination. LDL 129 White count 10.2 hemoglobin 12 platelets 431 sodium 139 potassium 3.8 creatinine 0.95 Urine reduction positive for amphetamines. Marijuana. Coronavirus [PCR]: Not detected Computed tomography scan of the brain without contrast: Negative Assessment and plan: -This patient presents with headache on and off for 2 weeks. Right facial weakness. Some changes speech. Difficulty finding words. This could be a stroke. CT brain unremarkable. MRI showinga white matter demyelination. Differential includes Lyme disease, MS. Martin's palsy less likely. Patient is agreed with lumbar puncture. -Obesity BMI 33.9 Weight loss measures. Follow with PCP. -Chronic fibromyalgia Gabapentin 800 mg 3 times a day. Flexeril 10 mg twice a day -Essential hypertension Catapres 0.1 mg 3 times a day -Bipolar disorder in remission Topamax 100 mg daily. TMs 900 mg daily at bedtime and 3 mg the morning,vyvanase 30 mg daily Wellbutrin 300 mg daily -Chronic nicotine dependence cigarette smoker Nicotine patch - marijuana use -Use of methamphetamines. Lumbar puncture tomorrow morning. Will DC prednisone if okay with neurology. Long discussion with the patient and Dr. Youssef. Total time spent today about 40 families with over 25 as of discussion.
[2021-04-29] MEDS: LITHIUM CARBONATE ER 450 MG TABLET.ER PO SCH (20:31)
[2021-04-29] MEDS: NON FORMULARY DRUG (Cariprazine Hcl [Vraylar] 6 MG Capsule) PO SCH (20:35)
[2021-04-30 07:15] VITALS: TEMP 97.8
[2021-04-30] MEDS: NON FORMULARY DRUG (Lithium Carbonate [Lithium Carbonate Er] 300 MG Tablet) PO SCH (07:49)
[2021-04-30] MEDS: NON FORMULARY DRUG (Lisdexamfetamine Dimesylate [Vyvanse] 30 MG Capsule) PO SCH (07:49)
[2021-04-30] MEDS: NICOTINE 14MG/24HR PATCH TRANSDERM SCH (07:57)
[2021-04-30] MEDS: GABAPENTIN 400 MG CAP PO SCH (07:57)
[2021-04-30] MEDS: FAMOTIDINE 20 MG TAB PO SCH (07:57)
[2021-04-30] MEDS: clonazePAM 0.5 MG TAB PO SCH (07:57)
[2021-04-30] MEDS: ASPIRIN 325 MG TAB PO SCH (07:57)
[2021-04-30] MEDS: OXYBUTYNIN 10 MG TAB.ER.24 PO SCH (07:59)
[2021-04-30] MEDS: cloNIDine HCL 0.1 MG TAB PO SCH (07:59)
[2021-04-30] MEDS: CYCLOBENZAPRINE 10 MG TAB PO SCH (08:00)
[2021-04-30] MEDS: valACYclovir HCL 1,000 MG TABLET PO SCH (08:00)
[2021-04-30] MEDS: buPROPion XL 300 MG TAB.ER.24H PO SCH (08:00)
[2021-04-30] MEDS: TOPIRAMATE 100 MG TAB PO SCH (08:00)
--- NOTE | 2021-04-30 10:06 | P.PN ---
Subjective Progress Note Date: 04/29/21 Patient states she is feeling better. He offers no new complaints. Right facial weakness appears slightly better. Still with weakness of the right eye closure. Patient states that she has been bitten by around 25 tics in her lifetime. [place] the [place]. She has been bitten by ticks, leaches and insects. Patient states that her sister has confirmed Lyme disease in the past. Patient never checked for Lyme disease. Objective - Vital Signs Vital signs: Vital Signs Temp 98.1 F 04/29/21 07:00 Pulse 80 04/29/21 07:00 Resp 16 04/29/21 07:00 BP 129/86 04/29/21 07:00 Pulse Ox 98 04/29/21 07:00 Intake & Output 04/28/21 04/29/21 04/29/21 18:59 06:59 18:59 Intake Total 120 480 Balance 120 480 Weight 95.254 kg Intake: Oral 120 480 Other: # Voids 2 - Exam Patient has mild right facial weakness, somewhat atypical, as it involves mainly the eye closure, and slightly involving the right lower facial region, whereas it almost completely spares the right forehead. Results of the examination is nonfocal. - Labs CBC & Chem 7: 04/27/21 20:51 04/27/21 20:51 Assessment and Plan Assessment: * New-onset right facial weakness, which somewhat appears central type, with sparing of the forehead muscles. Patient also complaining of some speech difficulty, rule out CVA versus atypical presentation of Martin's palsy. * History of tick bites, rule out Lyme disease. * Hypertension * Tobacco use * Marijuana use * ADD Plan: * MRI of the brain with and without contrast revealed nonspecific white matter demyelination, consider multiple sclerosis, migraine headaches, hypertension, vasculitis, Lyme disease. I reviewed the MRI, is somewhat atypical, not appears classic MS. * Patient will undergo lumbar puncture to evaluate for MS versus Lyme disease. * Hold off on steroids, as Lyme disease is high in the differential, and patient's presentation is not classic for Martin's palsy. MRI of the brain revealed no evidence of CVA. * CTA of head and neck showed no large vessel disease, or significant stenosis or aneurysm. * Continue aspirin 325 mg daily for now. * 2-D echo revealed normal left ventricular size. Moderate concentric LVH. EF is 55-60%. Trace MR. * Discussed in detail with Dr. Rajan regarding above workup and management. Discussed with the patient, informed about importance of lumbar puncture as well.
[2021-04-30 10:34] VITALS: RESP 16
[2021-04-30 11:13] VITALS: BP 121/81; PULSE 80
[2021-04-30 13:14] LABS: Glucose,CSF 83 mg/dL (40-70); Total Protein,CSF 50 mg/dL (12-60)
[2021-04-30 13:30] LABS: Appearance,CSF Clear
[2021-04-30 13:31] LABS: CSF Tube Number 4; Nucleated Cells, CSF 0 u/L (0-5); Red Blood Cell,CSF 0 u/L (0-10)
--- NOTE | 2021-04-30 17:32 | FL ---
Lumbar puncture INDICATION: strokelike symptoms FINDINGS: Fluoroscopy time: 12 seconds. Images obtained: 2. The procedure was explained to the patient. Risks complications and benefits were discussed. Alternat [place] were discussed. All questions were answered. Informed consent was obtained. A timeout was performed. The L4-5 level was chosen for access. Maximum barrier sterile technique was utilized. The skin was cl eansed with Betadine and the patient sterilely prepped and draped in the usual manner. The skin and d eeper tissue was anesthetized with 1% Lidocaine. Utilizing an 18-gauge spinal needle the spinal canal was accessed. Good CSF return was evident. Clear fluid was returned. CSF sampling was obtained in 4 vials approximately 13 mL total volume. Stylette was replaced and the needle withdrawn. Patient tolerated the procedure very well. Discharge instructions were discussed with the patient. The patient was transferred to her room for monitoring prior to discharge. Findings: Findings are pending pathology results. IMPRESSIONS: 1. Successful Lumbar Puncture.
--- NOTE | 2021-04-30 20:00 | P.DS ---
Providers Date of admission: 04/28/21 01:27 Expected date of discharge: 04/30/21 Attending physician: Tray Quevedo Consults: 04/28/21 01:28 Consult Physician Routine Consulting Provider: Cristóbal Riddle Consult Reason/Comments: Left facial weakness Do you want consulting provider notified?: Yes 04/29/21 12:46 Consult to Anesthesia Stat Consulting Provider: Anesthesia,Services Consult Reason/Comments: Lumbar Puncture today, possible MS vs Lyme disease Primary care physician: Ciaran Ramirez [facility] Course: Chief Complaint: Face feeling funny This is a pleasant 36-year-old patient, follows with Dr. Ciaran Ramirez. Chronic stable medical conditions include fibromyalgia, hypertension, osteoarthritis, hypothyroid, scoliosis, bilateral TMJ, polycystic ovarian syndrome, chronic low back sciatica, irregular menstrual periods. Patient presented to the ER. Patient about 3 days ago she was looking at something the matter she noticed that she was drooping the left side of the face. Left eye feels slow to close. She came to the ER the following day. Had a CT of the head and neck that was unremarkable. Started on aspirin and was to go home follow-up with urologist. Yesterday in the afternoon she noticed that she has some difficulty with speech and is was slow. And she is finding it difficult to process things. In putting words together. And decided to come back to the ER. There is no double vision. No weakness in the arms or legs. She did feel some funny feeling on the right side of the face. For 2 weeks she been having some headaches 2. April 29: Some facial weakness is present. Mild headache is present. Discussed with Dr. Youssef from neurology. Given that patient had changes speech some headache and facial weakness and the findings on the MRI extremity with his differential of Lyme's disease versus ML/demyelinating disorder. Martin's palsy by itself does not seem to justify the clinical setting. It was decided to proceed with a lumbar puncture. Patient is keen to go home. I did discuss the importance of getting a lumbar puncture done. Patient is agreed to stay back and get the lumbar puncture which is now scheduled for the morning. Patient recently has had tick bites. April 30: Patient underwent lumbar puncture. CSF will be validated for Lyme disease and MS. Patient will follow up with neurology. Outpatient. Steroids and antivirals discontinued as Martin's palsy is felt to be unlikely. After discussion with neurology. Consultation: Dr. Youssef from neurology Past medical history to include: Fibromyalgia, hypertension, hypothyroid, scoliosis, some right-sided weakness in the past with resolved PCO S, TMJ, irregular menstrual cycles. Bipolar disorder. Social history: Lives with her sadaf Corona. Smokes at least one joint a day. Smokes anywhere from half to a pack a day. She does use amphetamines intermittently. Family history: Mother had strokes and TIAs. Physical examination: VITAL SIGNS: 98.5, 92, 16, 113/72, 97% room air GENERAL: reclining bed, awake EYES: Pupils equal. Conjunctiva normal. HEENT: External appearance of nose and ears normal, oral cavity grossly normal. NECK: JVD not raised; masses not palpable. HEART: First and second heart sounds are normal; no edema. LUNGS: Respiratory rate normal; clear to auscultation. ABDOMEN: Soft, nontender, liver spleen not palpable, no masses palpable. PSYCH: Alert and oriented x3; mood and affect normal. NEUROLOGICAL: Mouth slightly pulled to the left. Difficulty closing the right eye fully. Limb examination unremarkable.. INVESTIGATIONS, reviewed in the clinical context: 2-D echocardiogram: Moderate concentric LVH. EF 55-60%. Carotid Doppler: No stenosis reported MRI brain: Nonspecific white matter demyelination. LDL 129 White count 10.2 hemoglobin 12 platelets 431 sodium 139 potassium 3.8 creatinine 0.95 Urine reduction positive for amphetamines. Marijuana. Coronavirus [PCR]: Not detected Computed tomography scan of the brain without contrast: Negative Assessment and plan: -This patient presents with headache on and off for 2 weeks. Right facial weakness. Some changes speech. Difficulty finding words. This could be a stroke. CT brain unremarkable. MRI showinga white matter demyelination. Differential includes Lyme disease, MS. Martin's palsy less likely. CSF being sent off for Lyme disease and MS workup. Follow-up in neurology Dr. Julien outpatient -Obesity BMI 33.9 Weight loss measures. Follow with PCP. -Chronic fibromyalgia Gabapentin 800 mg 3 times a day. Flexeril 10 mg twice a day -Essential hypertension Catapres 0.1 mg 3 times a day -Bipolar disorder in remission Topamax 100 mg daily. TMs 900 mg daily at bedtime and 3 mg the morning,vyvanase 30 mg daily Wellbutrin 300 mg daily -Chronic nicotine dependence cigarette smoker Nicotine patch - marijuana use -Use of methamphetamines. Disposition: Home Plan - Discharge Summary Discharge Rx Participant: No New Discharge Prescriptions: New Nicotine 14Mg/24Hr Patch [Habitrol] 1 patch TRANSDERM DAILY #14 patch Continue cloNIDine HCL [Catapres] 0.1 mg PO TID Cyclobenzaprine [Flexeril] 10 mg PO BID clonazePAM [KlonoPIN] 0.5 mg PO BID Topiramate [Topamax] 100 mg PO DAILY Lisdexamfetamine Dimesylate [Vyvanse] 30 mg PO DAILY Cariprazine HCl [Vraylar] 6 mg PO HS Oxybutynin ER [Ditropan Xl] 10 mg PO DAILY [place] Carbonate ER [Lithobid] 900 mg PO HS Albuterol Sulfate [Proair Hfa] 2 puff INHALATION RT-QID PRN PRN Reason: Shortness Of Breath [place] Carbonate [[place] Carbonate ER] 300 mg PO DAILY Ibuprofen [Motrin] 800 mg PO TID PRN PRN Reason: Pain Gabapentin 800 mg PO TID buPROPion HCL [Wellbutrin XL] 300 mg PO DAILY Dextroamphetamine/Amphetamine [Adderall] 5 mg PO DAILY@1330 Discharge Medication List cloNIDine HCL [Catapres] 0.1 mg PO TID 01/17/18 [History] Cyclobenzaprine [Flexeril] 10 mg PO BID 04/28/20 [History] clonazePAM [KlonoPIN] 0.5 mg PO BID 04/28/20 [History] Topiramate [Topamax] 100 mg PO DAILY 02/06/21 [History] Albuterol Sulfate [Proair Hfa] 2 puff INHALATION RT-QID PRN 04/26/21 [History] Cariprazine HCl [Vraylar] 6 mg PO HS 04/26/21 [History] Dextroamphetamine/Amphetamine [Adderall] 5 mg PO DAILY@1330 04/26/21 [History] Gabapentin 800 mg PO TID 04/26/21 [History] Ibuprofen [Motrin] 800 mg PO TID PRN 04/26/21 [History] Lisdexamfetamine Dimesylate [Vyvanse] 30 mg PO DAILY 04/26/21 [History] [place] Carbonate ER [Lithobid] 900 mg PO HS 04/26/21 [History] [place] Carbonate [[place] Carbonate ER] 300 mg PO DAILY 04/26/21 [History] Oxybutynin ER [Ditropan Xl] 10 mg PO DAILY 04/26/21 [History] buPROPion HCL [Wellbutrin XL] 300 mg PO DAILY 04/26/21 [History] Nicotine 14Mg/24Hr Patch [Habitrol] 1 patch TRANSDERM DAILY #14 patch 04/30/21 [Rx] Follow up Appointment(s)/Referral(s): Ciaran Ramirez MD [Primary Care Provider] - 1 Week Eduardo Julien MD [Medical Doctor] - 2 Weeks Patient Instructions/Handouts: How to Stop Smoking (DC), Lumbar Puncture (DC) Discharge Disposition: Left Against Medical Advice
[2021-05-04 11:54] LABS: IgG - CSF 2.3 mg/dL (0.0 - 3.4); IgG/Albumin Index (CSF) 0.42 (0.00 - 0.77); Immunoglobulin G 948 mg/dL (700 - 1600)
== END 2021-04-30 12:58 | disposition left against medical advice (07) ==
LOC: EC 19:52 → 6NMEDSUR 04-28 01:27
PROVIDERS: ADMIT Hospitalist; ATTEND Hospitalist
DX: R29.818 Other symptoms and signs involving the nervous system (principal); G43.909 Migraine, unspecified, not intractable, without status migrainosus; R29.810 Facial weakness; G37.9 Demyelinating disease of central nervous system, unspecified; E66.9 Obesity, unspecified; Z68.33 Body mass index [BMI] 33.0-33.9, adult; M79.7 Fibromyalgia; I10 Essential (primary) hypertension; Z20.822 Contact with and (suspected) exposure to COVID-19; F31.70 Bipolar disorder, currently in remission, most recent episode unspecified; F12.90 Cannabis use, unspecified, uncomplicated; F15.90 Other stimulant use, unspecified, uncomplicated; R53.1 Weakness; R47.81 Slurred speech; H53.8 Other visual disturbances; E03.9 Hypothyroidism, unspecified; F17.210 Nicotine dependence, cigarettes, uncomplicated; Z71.3 Dietary counseling and surveillance; Z71.6 Tobacco abuse counseling; Z53.29 Procedure and treatment not carried out because of patient's decision for other reasons; M51.16 Intervertebral disc disorders with radiculopathy, lumbar region; M41.9 Scoliosis, unspecified; M19.90 Unspecified osteoarthritis, unspecified site; E28.2 Polycystic ovarian syndrome; N92.6 Irregular menstruation, unspecified; M54.2 Cervicalgia; F41.9 Anxiety disorder, unspecified; F90.9 Attention-deficit hyperactivity disorder, unspecified type; M26.603 Bilateral temporomandibular joint disorder, unspecified; K90.41 Non-celiac gluten sensitivity; T14.8XXA Other injury of unspecified body region, initial encounter; W57.XXXA Bitten or stung by nonvenomous insect and other nonvenomous arthropods, initial encounter; Z79.899 Other long term (current) drug therapy; Z91.040 Latex allergy status; Z88.8 Allergy status to other drugs, medicaments and biological substances; Z86.14 Personal history of Methicillin resistant Staphylococcus aureus infection; Z86.73 Personal history of transient ischemic attack (TIA), and cerebral infarction without residual deficits; Z82.3 Family history of stroke
CPT/HCPCS: 99285; 36415; 93306; 92523; 88108; 84157; 80061; 80053; 82945; 84443; 82040; 82042; 82784; 83916; 82164; 80178; 83873; 85025; 89050; 81001; 87252; 86618; 86038; 80306; 87070; 87205; 87801; 87635; 62328; 93880; 70450; 70553; G0378 ×3; S4990 ×3; J7512 ×2; A9585

== ENCOUNTER 2021-11-11 15:38 | Emergency (ER) | payer OTHER ==
[2021-11-11 15:52] VITALS: BP 161/113; PULSE 97; RESP 20; TEMP 98.3
[2021-11-11 16:14] LABS: Appearance,Urine Turbid (Clear); Bacteria,Urine Many /hpf; Bilirubin,Urine Negative (Negative); Blood,Urine Small (Negative); Color,Urine Yellow; Glucose,Urine (UA) Negative (Negative); Ketones,Urine Negative (Negative); Leukocyte Esterase,Urine Large (Negative); Mucus,Urine Many /hpf; Nitrite,Urine Negative (Negative); PH, Urine 5.5 (5.0-8.0); Protein,Urine 1+ (Negative); RBC,Urine 49 /hpf (0-5); Squamous Epithelial Cell,Urine 47 /hpf (0-4); Urobilinogen,Urine <2.0 mg/dL (<2.0); WBC,Urine >182 /hpf (0-5)
== END 2021-11-11 17:30 | disposition left against medical advice (07) ==
LOC: EC 15:38
DX: Z53.21 Procedure and treatment not carried out due to patient leaving prior to being seen by health care provider (principal)
CPT/HCPCS: 81001; 87086; 99499

== ENCOUNTER → 2021-12-30 | Outpatient (CLI) | payer OTHER ==
[2021-12-30 13:37] VITALS: BP 134/94; PULSE 77; RESP 18; TEMP 98.8
--- NOTE | 2021-12-30 14:00 | P.PAINPG ---
PQRS Measure Charge Sheet Comment: A 36 yr old female with a history of severe and chronic low back pain secondary to lumbar degenerative disc diseases and lumbar spondylosis with facet arthropathy presents today for mid to LBP evaluation. Pain level is currently at 9/10 in intensity, constant, burning in character for the last 4 months. Pain is provoked by cold weather, lifting and standing for periods of 30 min or more. Pain is alleviated with medications (Ibuprofen), repositioning and rest. Has not tried PT or chiropractic treatments. Interventional pain procedures completed include TESI T7-T8 Patient is currently on Ibuprofen Patient denies any side effects of the medication(s), denies excessive drowsiness or sleepiness, denies suicidal ideation and reports that the current pain medication is helping to control the pain and improve activities of daily living. Patient denies any motor or sensory deficits. Patient denies any fever or night sweats, denies any change in the bowel movements or urination. Physical Examination: -Constitutional: Cooperative. Not in acute distress . - Neurologic: Cranial nerve II to XII intact. No focal neurological deficits. - Psychatric: Alert & oriented x 3. Matching mood & appropriate affect. Judgment and insight intact. - Musculoskeletal: Cervical spine: Muscle bulk/ tone/ strength in the bilateral upper extremities normal Vertebral body tenderness to palpation over Spurling test positive Distraction test positive Facet loading test positive Thoracic spine Muscle bulk / tone/ strength in the bilateral paraspinal muscles normal Vertebral body tender to palpation over T7, T8 Facet loading test positive Lumbar spine: Motor bulk/ tone/ strength lower extremities , thigh and legs : 5/5 Deep tendon reflexes : Normal Knee Jerk. Normal Ankle Jerk . Vertebral body tenderness to palpation over Lumbar Facet Loading Test positive Straight Leg Raise: positive at 30 degrees right side/ left side Gaenslen's Test positive Sacral spine : Severe tenderness over the Sacroiliac joint: right side / left side Range of motion: Flexion of the lumbar spine <60 degrees Range of motion: Extension of the lumbar spine <20 degrees Gaenslen's Test positive Gerardo's Test positive Kylah test: positive right side / left side Thigh Thrust Test Sacral Thrust Test Assessment and plan: Chronic low back pain secondary to lumbar degenerative disc disease , lumbar spondylosis with facet arthropathy without myelopathy Recommendation of TESI T7-T8. May need a series of injections, up to 3 within a 6 mo period, for optimal pain relief. Risks, benefits of procedure discussed and pt verbalized understanding. Admits to anticoagulant use and denies a medical history of diabetes. Protocol for discontinuation/ continuation of medications elieser procedure discussed. All patient questions answered I have spent less than 30 minutes on patient care today. Dr Teixeira was available by phone for the evaluation of this patient. The time was used to review the medical records including relevant urine studies and Prescription history (MAPs), review of the available imaging, evaluation and examination of the patient, coordination of care with the medical staff and if applicable referring physicians, as well as creation of the medical record PQRS Narrative: Smoking Status Current every day smoker Hx Alcohol Use (MH) No Home Medications: Ambulatory Orders cloNIDine HCL [Catapres] 0.1 mg PO TID 01/17/18 Cyclobenzaprine [Flexeril] 10 mg PO BID 04/28/20 clonazePAM [KlonoPIN] 0.5 mg PO BID 04/28/20 Topiramate [Topamax] 100 mg PO DAILY 02/06/21 Albuterol Sulfate [Proair Hfa] 2 puff INHALATION RT-QID PRN 04/26/21 Cariprazine HCl [Vraylar] 6 mg PO HS 04/26/21 Dextroamphetamine/Amphetamine [Adderall] 5 mg PO DAILY@1330 04/26/21 Gabapentin 800 mg PO TID 04/26/21 Lisdexamfetamine Dimesylate [Vyvanse] 30 mg PO DAILY 04/26/21 [place] Carbonate ER [Lithobid] 900 mg PO HS 04/26/21 [place] Carbonate [[place] Carbonate ER] 300 mg PO DAILY 04/26/21 Oxybutynin ER [Ditropan Xl] 10 mg PO DAILY 04/26/21 buPROPion HCL [Wellbutrin XL] 300 mg PO DAILY 04/26/21 Nicotine 14Mg/24Hr Patch [Habitrol] 1 patch TRANSDERM DAILY #14 patch 04/30/21 Acetaminophen [Tylenol] 500 mg PO Q4-6H PRN #24 tab 09/16/21 Cyclobenzaprine [Flexeril] 10 mg PO TID PRN #20 tab 09/16/21 Naproxen [Naprosyn] 375 mg PO Q12HR PRN #20 tablet 09/16/21 Controlled Substance Measures - Controlled Substance Measures Is patient prescribed a controlled substance at discharge?: No
== END ==
LOC: PNWHC3 13:08
PROVIDERS: ATTEND Specialist
DX: M51.36 Other intervertebral disc degeneration, lumbar region (principal); M51.26 Other intervertebral disc displacement, lumbar region; M47.816 Spondylosis without myelopathy or radiculopathy, lumbar region; G89.29 Other chronic pain; F17.200 Nicotine dependence, unspecified, uncomplicated; Z91.018 Allergy to other foods; Z91.040 Latex allergy status; Z88.6 Allergy status to analgesic agent
CPT/HCPCS: 99211

== ENCOUNTER → 2022-02-22 | Outpatient (CLI) | payer OTHER ==
[2022-02-22 13:32] VITALS: BP 147/100; PULSE 78; RESP 18; TEMP 98.4
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
== END | disposition home or self-care (01) ==
LOC: PNWHC3 13:04
PROVIDERS: ATTEND Specialist
DX: M47.895 Other spondylosis, thoracolumbar region (principal)
CPT/HCPCS: 99211

== ENCOUNTER 2022-04-13 07:16 | Day surgery (SDC) | payer OTHER ==
[2022-03-23 15:59] VITALS: BMI 34.5
[~2022-04-13 07:16] MED LIST changes: -ACETAMINOPHEN TAB 500 MG TAB PO PRN; -DEXAMETHASONE SOD PHOSPHATE 4 MG/ML 1 ML VIAL IV ONE; -HEPARIN SODIUM,PORCINE/PF 5,000 UNIT/0.5 ML SYRINGE SQ PRN; -HYDROmorphone 0.5 MG/0.5 ML SYRINGE IVP PRN; +LIDOCAINE 1% (10MG/ML) FOR IV START INTRADERMA PRN; -ONDANSETRON 4 MG/2 ML VIAL IVP ONE
[2022-04-13 07:43] VITALS: TEMP 97.3
[2022-04-13] MEDS ORDERED: methylPREDNISolone ACETATE 40 MG/ML 1 ML VIAL ONE (07:56)
[2022-04-13] MEDS ORDERED: IOPAMIDOL M200 10 ML VIAL ONE (07:56)
[2022-04-13] MEDS ORDERED: MIDAZOLAM 2 MG/2 ML VIAL ONE (07:56)
--- NOTE | 2022-04-13 08:06 | P.PCN ---
Date of Procedure: 04/13/22 Procedure(s) Performed: PREOPERATIVE DIAGNOSIS: 1- Lumbar Degenerative Disc Diseases 2-Lumbar spondylosis with Facet arthropathy without myelopathy. 3-lumbar radiculopathy POSTOPERATIVE DIAGNOSIS: Same as preop diagnosis. PROCEDURE 1. Lumbar epidural steroid injection under fluoroscopic guidance at the L5-S1 level. (Fluoroscopy imaging was available in radiology department) 2. Lumbar epidurogram. ANESTHESIA: moderate sedation with intravenous Versed 2 mg Sedation start time : 0 758 Sedation end time : 0804 EBL: Minimal PROCEDURE INDICATION: The patient with low back pain and radiculitis symptoms unresponsive to conservative treatment. Fluoroscopy was used to optimize visualization of the needle placement and to maximize safety. PROCEDURE DESCRIPTION / TECHNIQUE: The patient was seen and identified in the preoperative area. Risks, benefits, complications including but not limited to infections ,bleeding ,allergic reaction to the medications ,nerve damage and not complete pain releife , and alternatives were discussed with the patient. The patient agreed to proceed with the procedure and signed the consent. IV was started, and vital signs were stable. Patient was taken to the OR and time out was completed. The patient was placed in the prone position on procedure table and a pillow was placed under the abdomen to reduce lumbar lordosis. The lumbosacral area was prepped and draped in the usual sterile fashion.ere closely monitored during the procedure. Conscious sedation was used during the procedure to decrease patients anxiety. Vital signs was monitered during the entire procedure. Using anterior-posterior fluoroscopy, the L5-S1 interlaminar space was identified and the skin over this site was marked and then infiltrated with 1% lidocaine subcutaneously. Subsequently, a 20-gauge Tuohy epidural needle was inserted and advanced toward the epidural space using the ``Loss of resistance technique and guided by AP and lateral fluoroscopy. The correct needle position in the epidural space was verified with the injection of 2 mL of the water soluble contrast dye Isovue 200 contrast and observing an excellent epidurogram with the epidural spread of the dye, after negative aspiration for blood and CSF and in the absence of paresthesias. Again after negative aspiration, a 6 ml mixture containing 80 mg of Depo-medrol ( Preservetive Free ), and 2 ml of preservative free Normal Saline, and 2 ml of preservative free lidocaine 1% solution was injected and a washout of epidurogram was seen. Needle was withdrawn intact, skin was cleansed, and bandages were applied. COMPLICATIONS: None DISPOSITION / PLANS: The patient was placed in a supine position and transferred to the recovery area in a stable condition for observation. There was no evidence of lower extremity motor or sensory deficit after the procedure. Patient was discharged from the recovery room after meeting discharge criteria. Home discharge instructions were given to the patient by the staff. The patient was reexamined prior to discharge. The patient will schedule a follow up in the clinic in 2-4 weeks.
[2022-04-13] MEDS ORDERED: IV FLUID CONTINUATION 1,000 ML IV ONE (08:14)
[2022-04-13 08:15] VITALS: RESP 16
[2022-04-13 08:26] VITALS: BP 145/99; PULSE 73
--- NOTE | 2022-04-13 09:38 | FL ---
Fluoroscopy INDICATION: Pain FINDINGS: Fluoroscopy time: 2 seconds. Images obtained: One. IMPRESSIONS: 1. Documentation of fluoroscopy.
== END 2022-04-13 08:43 | disposition home or self-care (01) ==
LOC: ORPAIN 07:16
PROVIDERS: ATTEND Specialist
DX: M51.16 Intervertebral disc disorders with radiculopathy, lumbar region (principal); M47.26 Other spondylosis with radiculopathy, lumbar region; Z91.018 Allergy to other foods
CPT/HCPCS: 81025; 62323; J2250; J1030; Q9966

== ENCOUNTER → 2022-12-08 | Outpatient (CLI) | payer OTHER ==
[2022-12-08 19:36] LABS: Gliadin AB IgA, Deaminated Negative (Negative); Gliadin AB IgA, Unit 0.6 U/mL; Gliadin AB IgG, Deaminated Negative (Negative); Gliadin AB IgG, Unit <0.4 U/mL
== END | disposition home or self-care (01) ==
LOC: LABWHC1 11:43
PROVIDERS: ATTEND Nurse Practitioner Family
DX: K52.9 Noninfective gastroenteritis and colitis, unspecified (principal)
CPT/HCPCS: 36415; 83516; 85652; 86140

== ENCOUNTER → 2023-02-07 | Outpatient (CLI) | payer MEDICARE, OTHER ==
[2023-02-07 11:12] VITALS: BP 141/99; PULSE 66; RESP 16; TEMP 98.8
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
== END ==
LOC: PNWHC3 10:32
PROVIDERS: ATTEND Specialist
DX: M51.35 Other intervertebral disc degeneration, thoracolumbar region (principal); M47.815 Spondylosis without myelopathy or radiculopathy, thoracolumbar region; G89.29 Other chronic pain; F17.200 Nicotine dependence, unspecified, uncomplicated; Z79.82 Long term (current) use of aspirin; Z91.040 Latex allergy status; Z91.011 Allergy to milk products; Z88.8 Allergy status to other drugs, medicaments and biological substances
CPT/HCPCS: 99211

== ENCOUNTER 2023-02-22 11:35 | Day surgery (SDC) | payer MEDICARE, OTHER ==
[2023-02-21 12:55] VITALS: BMI 35.5
[2023-02-22] MEDS ORDERED: LACTATED RINGERS 1,000 ML IV SCH (11:52)
[2023-02-22 12:11] VITALS: TEMP 97.7
[2023-02-22] MEDS ORDERED: methylPREDNISolone ACETATE 80 MG/ML 1 ML VIAL ONE (12:21)
[2023-02-22] MEDS ORDERED: IOPAMIDOL M200 10 ML VIAL ONE (12:21)
--- NOTE | 2023-02-22 12:32 | P.PCN ---
Date of Procedure: 02/22/23 Procedure(s) Performed: PREOPERATIVE DIAGNOSIS: 1- thoracic Degenerative Disc Diseases 2-thoracic spondylosis with Facet arthropathy without myelopathy. POSTOPERATIVE DIAGNOSIS: 1-thoracic degenerative disc disease. 2-thoracic spondylosis with facet arthropathy without myelopathy. PROCEDURE 1. Thoracic epidural steroid injection under fluoroscopic guidance at the T7-8 level. (Fluoroscopy imaging was available in radiology department) 2. Thoracic epidurogram. ANESTHESIA: Lidocaine 1% 3 and then only. EBL: Minimal PROCEDURE INDICATION: The patient with low back pain and radiculitis symptoms unresponsive to conservative treatment. Fluoroscopy was used to optimize visualization of the needle placement and to maximize safety. PROCEDURE DESCRIPTION / TECHNIQUE: The patient was seen and identified in the preoperative area. Risks, benefits, complications including but not limited to infections ,bleeding ,allergic reaction to the medications ,nerve damage and not complete pain releife , and alternatives were discussed with the patient. The patient agreed to proceed with the procedure and signed the consent, and vital signs were stable. Patient was taken to the OR and time out was completed. The patient was placed in the prone position on procedure table . The thoracic area was prepped and draped in the usual sterile fashion.ere closely monitored during the procedure. Vital signs was monitered during the entire procedure. Using anterior-posterior fluoroscopy, the T7-8 interlaminar space was identified and the skin over this site was marked and then infiltrated with 1% lidocaine subcutaneously. Subsequently, a 20-gauge Tuohy epidural needle was inserted and advanced toward the epidural space using the ``Loss of resistance technique and guided by AP and lateral fluoroscopy. The correct needle position in the epidural space was verified with the injection of 2 mL of the water soluble contrast dye Isovue 200 contrast and observing an excellent epidurogram with the epidural spread of the dye, after negative aspiration for blood and CSF and in the absence of paresthesias. Again after negative aspiration, a 6 ml mixture containing 80 mg of Depo-medrol ( Preservetive Free ), and 2 ml of preservative free Normal Saline, and 2 ml of preservative free lidocaine 1% solution was injected and a washout of epidurogram was seen. Needle was withdrawn intact, skin was cleansed, and bandages were applied. COMPLICATIONS: None DISPOSITION / PLANS: The patient was placed in a supine position and transferred to the recovery area in a stable condition for observation. There was no evidence of lower extremity motor or sensory deficit after the procedure. Patient was discharged from the recovery room after meeting discharge criteria. Home discharge instructions were given to the patient by the staff. The patient was reexamined prior to discharge. The patient will schedule a follow up in the clinic in 2-4 weeks.
[2023-02-22 12:59] VITALS: BP 131/89; PULSE 69; RESP 16
--- NOTE | 2023-02-22 19:57 | FL ---
Intraoperative/procedural fluoroscopic services were provided. Total fluoroscopy time is 9.7 seconds with a total of 1 submitted images to PACS. Please see the operative/procedural note for further deta ils. DAP: [id number] mGym2
== END 2023-02-22 12:59 | disposition home or self-care (01) ==
LOC: ORPAIN 11:35
PROVIDERS: ATTEND Specialist
DX: M51.14 Intervertebral disc disorders with radiculopathy, thoracic region (principal); M47.816 Spondylosis without myelopathy or radiculopathy, lumbar region; Z88.9 Allergy status to unspecified drugs, medicaments and biological substances; Z91.040 Latex allergy status; Z88.3 Allergy status to other anti-infective agents; Z79.82 Long term (current) use of aspirin; Z79.84 Long term (current) use of oral hypoglycemic drugs
CPT/HCPCS: 64490; 81025; 62321; J1040; Q9966

== ENCOUNTER → 2023-05-20 | Outpatient (CLI) | payer MEDICARE, OTHER ==
[2023-05-21 02:42] LABS: Basophils # (A) 0.08 X 10*3/uL (0.00-0.10); Basophils % (A) 0.8 %; Eosinophils % (A) 4.2 %; HCT 43.2 % (37.2-46.3); HGB 12.6 g/dL (12.0-15.0); Lymphocytes # (A) 1.92 X 10*3/uL (0.90-5.00); Lymphocytes % (A) 20.3 %; MCH 23.6 pg (27.0-32.0); MCHC 29.2 g/dL (32.0-37.0); MCV 81.1 FL (80.0-97.0); Mean Platelet Volume 9.9 FL (9.5-12.2); Monocytes # (A) 0.69 X 10*3/uL (0.20-1.00); Monocytes % (A) 7.3 %; NRBC Per 100 WBC 0 X 10*3/uL (0.00-0.01); Neutrophils # (A) 6.28 X 10*3/uL (1.80-7.70); Neutrophils % (A) 66.6 %; Platelet Count 498 X 10*3/uL (140-440); RBC 5.33 X 10*6/uL (4.10-5.20); RDW 18.5 % (11.5-14.5); WBC 9.45 X 10*3/uL (4.50-10.00)
[2023-05-21 03:00] LABS: BUN/Creat Ratio 18.44 Ratio (12.00-20.00); Blood Urea Nitrogen 16.6 mg/dL (9.0-27.0); Calcium 10.2 mg/dL (8.7-10.3); Carbon Dioxide 17.6 mmol/L (21.6-31.8); Chloride 108 mmol/L (96-109); Glucose 90 mg/dL (70-110); Potassium 4.8 mmol/L (3.5-5.5); Sodium 139 mmol/L (135-145)
== END | disposition home or self-care (01) ==
LOC: LABWHC1 13:27
PROVIDERS: ATTEND Nurse Practitioner Family
DX: F31.9 Bipolar disorder, unspecified (principal)
CPT/HCPCS: 36415; 80048; 80178; 84443; 85025

== ENCOUNTER 2023-08-06 16:25 | Emergency (ER) | payer MEDICARE, OTHER ==
[2023-08-06 16:48] VITALS: RESP 18
--- NOTE | 2023-08-06 16:54 | ED ---
Back Pain HPI - General Chief Complaint: Back Pain/Injury Stated Complaint: Back Pain Time Seen by Provider: 08/06/23 16:36 Source: patient Limitations: no limitations - History of Present Illness Initial Comments: 38-year-old female presenting with chief complaint of back pain. Patient has history of chronic back pain and herniated disks. She denies any injury or trauma. States that for the last 2 days she has had lower back pain with muscle spasming. She also admits of radiation of pain down the right leg. No loss of bowel or bladder control or saddle paresthesia. She has been taking Motrin and Flexeril at home with little relief. No urinary symptoms. No fever. No nausea vomiting or diarrhea. No abdominal pain, chest pain, difficulty breathing. - Related Data Home Medications Medication Instructions Recorded Confirmed Topiramate [Topamax] 100 mg PO DAILY 02/06/21 03/14/23 Albuterol Sulfate [Proair Hfa] 2 puff INHALATION RT-QID PRN 04/26/21 03/14/23 Gabapentin 800 mg PO BID 04/26/21 03/14/23 [place] Carbonate ER [Lithobid] 900 mg PO HS 04/26/21 03/14/23 [place] Carbonate [[place] 300 mg PO DAILY 04/26/21 03/14/23 Carbonate ER] buPROPion HCL [Wellbutrin XL] 450 mg PO DAILY 04/26/21 03/14/23 Benzoyl Peroxide [Benzoyl Peroxide 1 applic TOPICAL DAILY 02/03/22 03/14/23 Cleanser] Clindamycin Topical Soln 1 applic TOPICAL BID PRN 02/03/22 03/14/23 [Cleocin-T Topical Soln] Ibuprofen [Motrin] 800 mg PO Q6H PRN 02/03/22 03/14/23 QUEtiapine [SEROquel] 200 mg PO HS 02/03/22 03/14/23 Aspirin 81 mg PO DAILY 04/09/22 03/14/23 Fexofenadine/Pseudoephedrine 1 tab PO DAILY 04/09/22 03/14/23 [Hailey-D 24 Hour Tablet] Montelukast [Singulair] 10 mg PO DAILY 04/09/22 03/14/23 Dextroamphetamine/Amphetamine 20 mg PO DAILY 02/21/23 03/14/23 [Adderall] Fluticasone Propion/Salmeterol 2 puff INHALATION BID 02/21/23 03/14/23 [Advair Hfa 45-21 Mcg Inhaler] Previous Rx's Medication Instructions Recorded Acetaminophen [Tylenol] 500 mg PO Q4-6H PRN #24 tab 09/16/21 Allergies Allergy/AdvReac Type Severity Reaction Status Date / Time dicyclomine [From Bentyl] Allergy severe dry Verified 08/06/23 16:35 mouth gluten Allergy Abcesses Verified 08/06/23 16:35 latex Allergy Rash/Hives Verified 08/06/23 16:35 sumatriptan succinate Allergy Anaphylaxis Verified 08/06/23 16:35 [From Imitrex] Review of Systems ROS Statement: Those systems with pertinent positive or pertinent negative responses have been documented in the HPI. ROS Other: All systems not noted in ROS Statement are negative. Past Medical History Past Medical History: CVA/TIA, Fibromyalgia, Hypertension, Osteoarthritis (OA), Skin Disorder, Thyroid Disorder Additional Past Medical History / Comment(s): SCOLIOSIS. CVA with R sided paralysis which resolved, bilateral TMJ, PCOS, pitted thyroid, migraines, DDD, ruptured disc, chronic low back pain/sciatica, occasional cervical pain. Irregul ar periods, "some months I don't have a period, other months I will have bleeding for 3 weeks or more.", uses topical washes for hx. of skin abscesses that she gets in skin folds if doens't use topical washes, derm. -states no current abscess anywhere, ear infection resolved History of Any Multi-Drug Resistant Organisms: MRSA Date of last positivie culture/infection: 2012 MDRO Source:: LEFT BUTTOCK Past Surgical History: Appendectomy, Cholecystectomy, Orthopedic Surgery Additional Past Surgical History / Comment(s): R ankle-replaced tendon, PAIN CLINIC PROCEDURES, EGD. Past Anesthesia/Blood Transfusion Reactions: No Reported Reaction Type of Cardiac Device: Unknown Device Placement Date:: unk Past Psychological History: ADD/ADHD, Anxiety, Bipolar, Depression Smoking Status: Current every day smoker Past Alcohol Use History: None Reported Past Drug Use History: Marijuana, Methamphetamine - Past Family History Mother Family Medical History: CVA/TIA, Musculoskeletal Disorder Additional Family Medical History / Comment(s): Mother has had CVAs and TIAs and has DDD. Father Family Medical History: CVA/TIA Additional Family Medical History / Comment(s): Father from a brain stem infarct at the age of 64yrs. General Exam Limitations: no limitations General appearance: alert, in no apparent distress Head exam: Present: atraumatic, normocephalic Eye exam: Present: normal appearance Neck exam: Present: normal inspection Respiratory exam: Absent: respiratory distress Cardiovascular Exam: Present: regular rate Extremities exam: Present: normal inspection Back exam: Present: normal inspection, paraspinal tenderness Neurological exam: Present: alert, oriented X3 Psychiatric exam: Present: normal affect, normal mood Skin exam: Present: warm, dry Course Vital Signs 08/06/23 08/06/23 16:33 18:11 Temperature 98.8 F 98.1 F Pulse Rate 90 73 Respiratory 18 18 Rate Blood Pressure 145/99 134/93 O2 Sat by Pulse 97 99 Oximetry Medical Decision Making - Medical Decision Making Was pt. sent in by a medical professional or institution (, PA, FEED GRINDER, urgent care, hospital, or shelter...) When possible be specific @ -No Did you speak to anyone other than the patient for history (EMS, parent, family, police, friend...)? What history was obtained from this source @ -No Did you review nursing and triage notes (agree or disagree)? Why? @ -I reviewed and agree with nursing and triage notes Were old charts reviewed (outside hosp., previous admission, EMS record, old EKG, old radiological studies, urgent care reports/EKG's, shelter records)? Report findings @ -No old charts were reviewed Differential Diagnosis (chest pain, altered mental status, abdominal pain women, abdominal pain men, vaginal bleeding, weakness, fever, dyspnea, syncope, headache, dizziness, GI bleed, back pain, seizure, CVA, palpatations, mental health, musculoskeletal)? @ - [facility] Differential Back Pain: Strain, zoster, cauda equina syndrome, epidural abscess, vertebral osteomyelitis, discitis, fracture, subluxation, disc herniation, DJD, spinal stenosis, dissection, AAA, pancreatitis, peptic ulcer disease, pyelonephritis, kidney stone this is not meant to be an all-inclusive list. EKG interpreted by me (3pts min.). @ -As above X-rays interpreted by me (1pt min.). @ -None done CT interpreted by me (1pt min.). @ -None done U/S interpreted by me (1pt. min.). @ -None done What testing was considered but not performed or refused? (CT, X-rays, U/S, labs)? Why? @ -None What meds were considered but not given or refused? Why? @ -None Did you discuss the management of the patient with other professionals (professionals i.e. Dr., PA, FEED GRINDER, lab, RT, psych nurse, licensed clinical social worker, railroad dining car steward/stewardess, teacher, correction officer head, rn case manager)? Give summary @ -No Was smoking cessation discussed for >3mins.? @ -No Was critical care preformed (if so, how long)? @ -No Were there social determinants of health that impacted care today? How? (Homelessness, low income, unemployed, alcoholism, drug addiction, transportation, low edu. Level, literacy, decrease access to med. care, senior care, rehab)? @ -No Was there de-escalation of care discussed even if they declined (Discuss DNR or withdrawal of care, Hospice)? DNR status @ -No What co-morbidities impacted this encounter? (DM, HTN, Smoking, COPD, CAD, Cancer, CVA, ARF, Chemo, Hep., AIDS, mental health diagnosis, sleep apnea, morbid obesity)? @ -None Was patient admitted / discharged? Hospital course, mention meds given and route, prescriptions, significant lab abnormalities, going to OR and other pertinent info. @ -38-year-old female presenting with chief complaint of low back pain. No injury. No red flag features. History of herniated disks. She is given [place] l, Decadron, Norflex, and lidocaine patch. On reassessment she reports improvement in her pain. She is ready to be discharged home. Follow-up with PCP. Report back to ER with any new or worsening symptoms. Discussed return parameters and answered all questions. Patient conveyed verbal understanding and agreed to the plan. I discussed this case in detail with my attending Dr. Castillo Undiagnosed new problem with uncertain prognosis? @ -No Drug Therapy requiring intensive monitoring for toxicity (Heparin, Nitro, Insulin, Cardizem)? @ -No Were any procedures done? @ -No Diagnosis/symptom? @ -Low back pain Acute, or Chronic, or Acute on Chronic? @ -Acute Uncomplicated (without systemic symptoms) or Complicated (systemic symptoms)? @ -Uncomplicated Side effects of treatment? @ -No Exacerbation, Progression, or Severe Exacerbation? @ -No Poses a threat to life or bodily function? How? (Chest pain, [place], [place], pneumonia, PE, COPD, DKA, ARF, appy, cholecystitis, CVA, Diverticulitis, Homicidal, Suicidal, threat to staff... and all critical care pts) @ -No Disposition Clinical Impression: Low back ache Disposition: HOME SELF-CARE Condition: Good Instructions (If sedation given, give patient instructions): Acute Low Back Pain (ED) Additional Instructions: Follow-up with PCP. Report back to ER with any new or worsening symptoms. Is patient prescribed a controlled substance at d/c from ED?: No Referrals: Nelson Domingo MD [Primary Care Provider] - 1-2 days Time of Disposition: 18:03
[2023-08-06] MEDS: KETOROLAC 15 MG/ML 1 ML VIAL IM STA (16:55)
[2023-08-06] MEDS: LIDOCAINE 4% PATCH TOPICAL ONE (16:55)
[2023-08-06] MEDS: ORPHENADRINE 30 MG/ML 2 ML VIAL IM STA (16:59)
[2023-08-06] MEDS: DEXAMETHASONE SOD PHOSPHATE 10 MG/ML 1 ML VIAL IM STA (17:00)
[2023-08-06 18:14] VITALS: BP 134/93; PULSE 73; TEMP 98.1
== END 2023-08-06 18:12 | disposition home or self-care (01) ==
LOC: EC 16:25
DX: M54.50 Low back pain, unspecified (principal); I10 Essential (primary) hypertension; M19.90 Unspecified osteoarthritis, unspecified site; F31.9 Bipolar disorder, unspecified; F41.9 Anxiety disorder, unspecified; F12.90 Cannabis use, unspecified, uncomplicated; F17.200 Nicotine dependence, unspecified, uncomplicated; Z79.51 Long term (current) use of inhaled steroids; Z79.899 Other long term (current) drug therapy; Z91.040 Latex allergy status; Z91.018 Allergy to other foods; Z88.8 Allergy status to other drugs, medicaments and biological substances; Z90.49 Acquired absence of other specified parts of digestive tract; Z86.73 Personal history of transient ischemic attack (TIA), and cerebral infarction without residual deficits
CPT/HCPCS: 99283; 96372 ×3; J1100; J2360; J1885

== ENCOUNTER 2024-01-01 16:02 | Emergency (ER) | payer MEDICARE, OTHER ==
[2024-01-01 16:05] VITALS: BP 148/87; PULSE 86; RESP 18; TEMP 98.3
--- NOTE | 2024-01-01 16:26 | ED ---
URI HPI - General Chief Complaint: Upper Respiratory Infection Stated Complaint: Respiratory infection Time Seen by Provider: 01/01/24 16:25 Source: patient, RN notes reviewed Mode of arrival: ambulatory Limitations: no limitations - History of Present Illness Initial Comments: 38-year-old female presented to the ER with a chief complaint of cough and c ongestion. Patient reports this been going on for the past 5 or 6 days. She states she was seen by Dr. Domingo 3 days ago and started on prednisone and amoxicillin. Patient is still endorsing a cough with green phlegm and congestion. She does report mild shortness of breath as she has a past medical history significant of asthma. She has been taking albuterol, Advair and DuoNeb with minor relief. She does report low-grade fevers at home. She has since finished up prednisone and reported mild improvement. She denies any chest pain, abdominal pain, constipation/diarrhea, urinary complaints or peripheral edema. Patient is a every day smoker. - Related Data Home Medications Medication Instructions Recorded Confirmed Topiramate [Topamax] 100 mg PO DAILY 02/06/21 03/14/23 Albuterol Sulfate [Proair Hfa] 2 puff INHALATION RT-QID PRN 04/26/21 03/14/23 Gabapentin 800 mg PO BID 04/26/21 03/14/23 [place] Carbonate ER [Lithobid] 900 mg PO HS 04/26/21 03/14/23 [place] Carbonate [[place] 300 mg PO DAILY 04/26/21 03/14/23 Carbonate ER] buPROPion HCL [Wellbutrin XL] 450 mg PO DAILY 04/26/21 03/14/23 Benzoyl Peroxide [Benzoyl Peroxide 1 applic TOPICAL DAILY 02/03/22 03/14/23 Cleanser] Clindamycin Topical Soln 1 applic TOPICAL BID PRN 02/03/22 03/14/23 [Cleocin-T Topical Soln] Ibuprofen [Motrin] 800 mg PO Q6H PRN 02/03/22 03/14/23 QUEtiapine [SEROquel] 200 mg PO HS 02/03/22 03/14/23 Aspirin 81 mg PO DAILY 04/09/22 03/14/23 Fexofenadine/Pseudoephedrine 1 tab PO DAILY 04/09/22 03/14/23 [Hailey-D 24 Hour Tablet] Montelukast [Singulair] 10 mg PO DAILY 04/09/22 03/14/23 Dextroamphetamine/Amphetamine 20 mg PO DAILY 02/21/23 03/14/23 [Adderall] Fluticasone Propion/Salmeterol 2 puff INHALATION BID 02/21/23 03/14/23 [Advair Hfa 45-21 Mcg Inhaler] Previous Rx's Medication Instructions Recorded Acetaminophen [Tylenol] 500 mg PO Q4-6H PRN #24 tab 09/16/21 Allergies Allergy/AdvReac Type Severity Reaction Status Date / Time dicyclomine [From Bentyl] Allergy severe dry Verified 01/01/24 16:05 mouth gluten Allergy Abcesses Verified 01/01/24 16:05 latex Allergy Rash/Hives Verified 01/01/24 16:05 sumatriptan succinate Allergy Anaphylaxis Verified 01/01/24 16:05 [From Imitrex] Review of Systems ROS Statement: Those systems with pertinent positive or pertinent negative responses have been documented in the HPI. ROS Other: All systems not noted in ROS Statement are negative. Past Medical History Past Medical History: CVA/TIA, Fibromyalgia, Hypertension, Osteoarthritis (OA), Skin Disorder, Thyroid Disorder Additional Past Medical History / Comment(s): SCOLIOSIS. CVA with R sided paralysis which resolved, bilateral TMJ, PCOS, pitted thyroid, migraines, DDD, ruptured disc, chronic low back pain/sciatica, occasional cervical pain. Irregular periods, "some months I don't have a period, other months I will have bleeding for 3 weeks or more.", uses topical washes for hx. of skin abscesses that she gets in skin folds if doens't use topical washes, derm. -states no current abscess anywhere, ear infection resolved History of Any Multi-Drug Resistant Organisms: MRSA Date of last positivie culture/infection: 2012 MDRO Source:: LEFT BUTTOCK Past Surgical History: Appendectomy, Cholecystectomy, Orthopedic Surgery Additional Past Surgical History / Comment(s): R ankle-replaced tendon, PAIN CLINIC PROCEDURES, EGD. Past Anesthesia/Blood Transfusion Reactions: No Reported Reaction Type of Cardiac Device: Unknown Device Placement Date:: unk Past Psychological History: ADD/ADHD, Anxiety, Bipolar, Depression Smoking Status: Current every day smoker Past Alcohol Use History: None Reported Past Drug Use History: Marijuana, Methamphetamine - Past Family History Mother Family Medical History: CVA/TIA, Musculoskeletal Disorder Additional Family Medical History / Comment(s): Mother has had CVAs and TIAs and has DDD. Father Family Medical History: CVA/TIA Additional Family Medical History / Comment(s): Father from a brain stem infarct at the age of 64yrs. General Exam Limitations: no limitations General appearance: alert, in no apparent distress Eye exam: Present: normal appearance, PERRL, EOMI. Absent: scleral icterus, conjunctival injection, periorbital swelling ENT exam: Present: normal exam, mucous membranes moist Neck exam: Present: normal inspection. Absent: tenderness, meningismus, lymphadenopathy Respiratory exam: Present: normal lung sounds bilaterally. Absent: respiratory distress, wheezes, rales, rhonchi, stridor Cardiovascular Exam: Present: regular rate, normal rhythm, normal heart sounds. Absent: systolic murmur, diastolic murmur, rubs, gallop, clicks Skin exam: Present: warm, dry, intact, normal color. Absent: rash Course Vital Signs 01/01/24 16:03 Temperature 98.3 F Pulse Rate 86 Respiratory 18 Rate Blood Pressure 148/87 O2 Sat by Pulse 99 Oximetry Medical Decision Making - Medical Decision Making Was pt. sent in by a medical professional or institution (, PA, [employer] ARCHITECT, urgent care, hospital, or half-way...) When possible be specific @ -No Did you speak to anyone other than the patient for history (EMS, parent, family, police, friend...)? What history was obtained from this source @ -No Did you review nursing and triage notes (agree or disagree)? Why? @ -I reviewed and agree with nursing and triage notes Were old charts reviewed (outside hosp., previous admission, EMS record, old EKG, old radiological studies, urgent care reports/EKG's, half-way records)? Report findings @ -No old charts were reviewed Differential Diagnosis (chest pain, altered mental status, abdominal pain women, abdominal pain men, vaginal bleeding, weakness, fever, dyspnea, syncope, headache, dizziness, GI bleed, back pain, seizure, CVA, palpatations, mental health, musculoskeletal)? @ -COVID, RSV, influenza, viral sinusitis, pneumonia this list is not meant to be all-inclusive EKG interpreted by me (3pts min.). @ -None X-rays interpreted by me (1pt min.). @ -Chest x-ray interpreted by me negative for acute cardiopulmonary process. CT interpreted by me (1pt min.). @ -None done U/S interpreted by me (1pt. min.). @ -None done What testing was considered but not performed or refused? (CT, X-rays, U/S, labs)? Why? @ -None What meds were considered but not given or refused? Why? @ -None Did you discuss the management of the patient with other professionals (professionals i.e. , PA, [employer] ARCHITECT, lab, RT, psych nurse, social service worker, board worker, teacher, chief medical officer, pillowcase maker)? Give summary @ -No Was smoking cessation discussed for >3mins.? @ -I discussed smoking cessation for greater than 3 minutes. The risk of smoking were discussed with the patient including but not limited to risks of cancer, stroke, coronary artery disease and COPD. Also discussed with patient were multiple methods of quitting smoking. Lastly we discussed the financial cost of smoking. Was critical care preformed (if so, how long)? @ -No Were there social determinants of health that impacted care today? How? (Homelessness, low income, unemployed, alcoholism, drug addiction, transportation, low edu. Level, literacy, decrease access to med. care, penitentiary, rehab)? @ -No Was there de-escalation of care discussed even if they declined (Discuss DNR or withdrawal of care, Hospice)? DNR status @ -No What co-morbidities impacted this encounter? (DM, HTN, Smoking, COPD, CAD, Cancer, CVA, ARF, Chemo, Hep., AIDS, mental health diagnosis, sleep apnea, morbid obesity)? @ -Smoker Was patient admitted / discharged? Hospital course, mention meds given and route, prescriptions, significant lab abnormalities, going to OR and other pertinent info. @ -Discharge. 38-year-old female presented to the ER with a chief complaint of cough and congestion. History and physical exam completed. Vitals stable. Patient in no signs of acute distress and nontoxic-appearing. Lung sounds clear to auscultation bilaterally. Viral swabs obtained negative. Chest x-ray is negative for acute cardiopulmonary process. Patient did receive by mouth Tylenol for symptom control in the ER. Upon reevaluation, patient resting comfortably in exam room in no signs of acute distress. Results discussed with patient, all questions answered. Advised her to continue taking amoxicillin as prescribed by PCP. I discussed smoking cessation for greater than 3 minutes. The risk of smoking were discussed with the patient including but not limited to risks of cancer, stroke, coronary artery disease and COPD. Also discussed with patient were multiple methods of quitting smoking. Lastly we discussed the financial cost of smoking. Strict return parameters discussed. Patient discharged in stable condition with follow-up to PCP. Patient verbally expressed understanding and agreement care plan. Case discussed with ED attending, Dr. Ramirez. Undiagnosed new problem with uncertain prognosis? @ -No Drug Therapy requiring intensive monitoring for toxicity (Heparin, Nitro, Insulin, Cardizem)? @ -No Were any procedures done? @ -No Diagnosis/symptom? @ -Tracheobronchitis/nicotine dependence Acute, or Chronic, or Acute on Chronic? @ -Acute Uncomplicated (without systemic symptoms) or Complicated (systemic symptoms)? @ -Uncomplicated Side effects of treatment? @ -No Exacerbation, Progression, or Severe Exacerbation? @ -No Poses a threat to life or bodily function? How? (Chest pain, [place], [place], pneumonia, PE, COPD, DKA, ARF, appy, cholecystitis, CVA, Diverticulitis, Homicidal, Suicidal, threat to staff... and all critical care pts) @ -No - Lab Data Lab Results 01/01/24 Range/Units 16:49 Influenza Type A (PCR) Not Detected (Not Detectd) Influenza Type B (PCR) Not Detected (Not Detectd) RSV (PCR) Not Detected (Not Detectd) SARS-CoV-2 (PCR) Not Detected (Not Detectd) - Radiology Data Radiology results: report reviewed, image reviewed Disposition Clinical Impression: Tracheobronchitis, Nicotine dependence Disposition: HOME SELF-CARE Condition: Stable Instructions (If sedation given, give patient instructions): Upper Respiratory Infection (ED) Additional Instructions: Continue amoxicillin as prescribed. Follow-up with Dr. Domingo next week. Return to the ER for any new or worsening concerns. Is patient prescribed a controlled substance at d/c from ED?: No Referrals: Nelson Domingo MD [Primary Care Provider] - 1-2 days Time of Disposition: 17:41
--- NOTE | 2024-01-01 17:05 | XR ---
EXAMINATION TYPE: XR chest 2V DATE OF EXAM: 01/01/2024 4:35 PM CLINICAL INDICATION:Female, 38 years old with history of cough; [facility] COMPARISON: Chest radiographs from TECHNIQUE: XR chest 2V Frontal view of the chest. FINDINGS: Lungs/Pleura: There is no evidence of pleural effusion, focal consolidation, or pneumothorax. Pulmonary vascularity: Unremarkable. Heart/mediastinum: Cardiomediastinal silhouette is unremarkable. Musculoskeletal: No acute osseous pathology. Other findings: None Lines/Tubes: IMPRESSION: No acute cardiopulmonary disease/process.
[2024-01-01] MEDS: ACETAMINOPHEN TAB 325 MG TAB PO STA (17:43)
== END 2024-01-01 17:49 | disposition home or self-care (01) ==
LOC: EC 16:02
DX: J40 Bronchitis, not specified as acute or chronic (principal); F17.200 Nicotine dependence, unspecified, uncomplicated; Z86.73 Personal history of transient ischemic attack (TIA), and cerebral infarction without residual deficits; Z88.1 Allergy status to other antibiotic agents; Z88.3 Allergy status to other anti-infective agents; Z91.040 Latex allergy status; Z91.09 Other allergy status, other than to drugs and biological substances
CPT/HCPCS: 71046; 87636; 99285; 99406